=== PATIENT | female | born 1965 | race Caucasian/White ===

== ENCOUNTER → 2019-11-21 11:20 | Outpatient (BNVA) | payer MEDICAID, SELFPAY | PROVIDERS: PCP Internal Medicine Geriatric Medicine; Referring Provider Internal Medicine Geriatric Medicine; Visit Provider Nurse Practitioner Gerontology | DX: E10.40 Type 1 diabetes mellitus with diabetic neuropathy, unspecified (principal); E10.319 Type 1 diabetes mellitus with unspecified diabetic retinopathy without macular edema; E10.29 Type 1 diabetes mellitus with other diabetic kidney complication; E10.65 Type 1 diabetes mellitus with hyperglycemia; R80.9 Proteinuria, unspecified; E78.5 Hyperlipidemia, unspecified; G80.9 Cerebral palsy, unspecified; Z46.81 Encounter for fitting and adjustment of insulin pump; Z79.4 Long term (current) use of insulin | CPT/HCPCS: 99214 ==

== ENCOUNTER → 2020-02-27 09:05 | Outpatient (BNVA) | payer MEDICAID, SELFPAY | PROVIDERS: PCP Internal Medicine Geriatric Medicine; Visit Provider Nurse Practitioner Gerontology ==

== ENCOUNTER → 2020-03-04 10:41 | Outpatient (BNVA) | payer MEDICAID, SELFPAY | PROVIDERS: PCP Internal Medicine Geriatric Medicine; Visit Provider Nurse Practitioner Gerontology | DX: E10.29 Type 1 diabetes mellitus with other diabetic kidney complication (principal); E78.5 Hyperlipidemia, unspecified; R80.9 Proteinuria, unspecified | CPT/HCPCS: 82947; 99212 ==

== ENCOUNTER → 2020-04-19 11:13 | Outpatient (BNVA) | payer MEDICAID, SELFPAY | PROVIDERS: PCP Internal Medicine Geriatric Medicine; Visit Provider Nurse Practitioner Gerontology | DX: E10.29 Type 1 diabetes mellitus with other diabetic kidney complication (principal); R80.9 Proteinuria, unspecified; E78.5 Hyperlipidemia, unspecified; Z79.4 Long term (current) use of insulin; Z71.3 Dietary counseling and surveillance | CPT/HCPCS: 82947; 99212 ==

== ENCOUNTER → 2020-06-03 12:42 | Outpatient (BNVA) | payer MEDICAID, SELFPAY | PROVIDERS: PCP Internal Medicine Geriatric Medicine; Visit Provider Nurse Practitioner Gerontology ==

== ENCOUNTER 2020-06-07 09:43 | Outpatient (REF) | payer MEDICAID, SELFPAY ==
--- NOTE | ~2020-06-07 | MM_ITS ---
EXAMINATION: MM SCREENING DIGITAL BREAST TOMOSYNTHESIS, BILATERAL CLINICAL INFORMATION: Screening. Asymptomatic. Family history breast cancer, 2 sisters. The lifetime risk of breast cancer based on the Tyrer-Cuzick Model is 19.5%. COMPARISON: Mammography: 08/06/2018, 07/17/2017, 05/16/2016 TECHNIQUE: Digital breast tomosynthesis is performed in both the craniocaudal and mediolateral oblique views along with computer-aided detection (CAD). Synthesized 2D images are generated from the tomosynthesis. FINDINGS: There are scattered areas of fibroglandular density (ACR BI-RADS breast composition Category b). The parenchymal pattern is similar to prior exams. There is no developing density or interval mass or architectural abnormality. The breasts again show scattered punctate and some vascular and ductal secretory calcifications. The bilateral axilla and skin contours are unremarkable. Right breast has new group of 5 punctate calcifications mid 11:00 position. MM/MM tomosynthesis screening BI IMPRESSION: 1. Right: New group of 5 punctate calcifications mid 11:00 position. 2. Left: No mammographic evidence of malignancy. ASSESSMENT: BI-RADS 0: Incomplete - Need Additional Imaging Evaluation RECOMMENDATION: 1. Additional views of the right breast (magnification CC, magnification ML). 2. Radiology department staff will contact the patient for additional imaging. This patient's information was entered into a reminder system with a target due date for their next mammogram.
== END 2020-06-07 09:44 | disposition home or self-care (01) ==
LOC: HO.MAMMO 09:43
PROVIDERS: PCP Internal Medicine Geriatric Medicine; Visit Provider Internal Medicine Geriatric Medicine
DX: Z12.31 Encounter for screening mammogram for malignant neoplasm of breast (principal)
CPT/HCPCS: 77063; 77067

== ENCOUNTER 2020-06-20 12:42 | Outpatient (REF) | payer MEDICAID, SELFPAY ==
--- NOTE | ~2020-06-20 | MM_ITS ---
EXAMINATION: MM DIAGNOSTIC DIGITAL MAMMOGRAPHY, RIGHT CLINICAL INFORMATION: Recall from screening for new group of fine punctate calcifications mid 11:00 position. Family history breast cancer, 2 sisters. TC score 19.5%. COMPARISON: Mammography: 06/07/2020, 08/06/2018 TECHNIQUE: Digital mammography is performed in the following views: Magnification CC, magnification ML, magnification rolled CC x2. FINDINGS: There are scattered areas of fibroglandular density (ACR BI-RADS breast composition Category b). The magnification views show group of 5 calcifications in circular loosely arranged on the CC views. Only 3 calcifications are visible on the ML projection. Management plan is for short interval follow-up right mammography to include magnification views in 6 months. Results are discussed with the patient at time of visit. MM/MM added views RT IMPRESSION: Group of 3-5 calcifications circularly arranged on CC view, mid 11:00 right breast. ASSESSMENT: BI-RADS 3: Probably Benign RECOMMENDATION: Diagnostic right mammography in 6 months. This patient's information was entered into a reminder system with a target due date for their next mammogram.
--- NOTE | ~2020-06-20 | XR_ITS ---
EXAMINATION: XR FOOT, LEFT CLINICAL INFORMATION: Left foot pain COMPARISON: None TECHNIQUE: AP, lateral, and oblique views of the left foot. FINDINGS: The bones and soft tissues are normal. No fracture. Alignment is anatomic. Joint spaces are maintained. XR/XR foot LT min 3V IMPRESSION: Normal left foot.
== END 2020-06-20 12:43 | disposition home or self-care (01) ==
LOC: HO.MAMMO 12:42
PROVIDERS: Absent Provider Emergency Medicine; PCP Internal Medicine Geriatric Medicine; Visit Provider Internal Medicine Geriatric Medicine
DX: M79.672 Pain in left foot (principal); R92.1 Mammographic calcification found on diagnostic imaging of breast
CPT/HCPCS: 73630; 77065

== ENCOUNTER 2020-07-01 00:07 | Emergency (ER) | payer MEDICAID, SELFPAY ==
--- NOTE | ~2020-07-01 | XR_ITS ---
EXAMINATION: XR FINGER, LEFT CLINICAL INFORMATION: Fifth digit injury COMPARISON: None TECHNIQUE: 3 views of the left fifth digit. FINDINGS: Osseous alignment is anatomic. No acute fracture is seen. No significant focal soft tissue abnormality identified. XR/XR finger LT min 2V IMPRESSION: No acute findings identified.
[2020-07-01 02:00] VITALS: BP 133/78; PULSE 80; RESP 18; TEMP 36.6; O2SAT 97; BMI 35.4
--- NOTE | 2020-07-01 03:37 | ED.WOUNDLAC ---
HPI - Wound/Laceration General Chief Complaint: Wound/Laceration Stated Complaint: Finger Injury Time Seen by Provider: 07/01/20 01:41 Source: patient and family (Daughter) Mode of arrival: ambulatory History of Present Illness HPI narrative: 54-year-old female presents after granddaughter accidentally slammed the door on her left pinky finger. Patient endorses that she is a diabetic. Related Data Home Medications Medication Instructions Recorded Confirmed blood sugar diagnostic #10 ea 11/21/19 06/03/20 bupropion HCl 200 mg tablet,12 hr 200 mg PO BID 11/21/19 06/03/20 sustained-release lancets 28 gauge #100 ea 11/21/19 06/03/20 pen needle, diabetic 32 gauge x #50 ea 11/21/19 06/03/20 prazosin 2 mg capsule 2 mg PO BEDTIME 11/21/19 06/03/20 quetiapine 150 mg tablet,extended 150 mg PO DAILY 11/21/19 06/03/20 release 24 hr sertraline 100 mg tablet 100 mg PO DAILY 11/21/19 06/03/20 Previous Rx's Medication Instructions Recorded atorvastatin 80 mg tablet 80 mg PO DAILY 30 Days #30 tab 04/19/20 insulin aspart U-100 100 unit/mL 75 unit SUBCUT DAILY #20 ml 04/19/20 subcutaneous solution lisinopril 2.5 mg tablet 2.5 mg PO DAILY #30 tab 04/19/20 insulin syringe-needle U-100 0.5 #150 ea 06/03/20 mL 31 gauge x 06/23 Allergies Allergy/AdvReac Type Severity Reaction Status Date / Time No Known Allergies Allergy Verified 06/03/20 13:12 [No Known Allergies*] Review of Systems Review of Systems: Pertinent positives and negatives as stated in HPI and 10 point review of systems is otherwise negative. [facility] Past Medical History Source: nursing notes reviewed Medical History Cerebral palsy Depression Hyperlipidemia, unspecified Insomnia Proteinuria Type 1 diabetes mellitus with other diabetic kidney complication Surgical History History of appendectomy Hx of section Family History Family History Father Lung cancer Mother Colon cancer Diabetes HTN (hypertension) CVD (cardiovascular disease) Social History Social History Household Members: Family and Children Household Members Other:: grandchidren Alcohol intake: never Smoking Status: Never smoker Advance Directives: No Advance Directives Information Provided: No Patient : No Physical Exam Vital Signs: Vital Signs: Last Vital Signs Temp 98 F 07/01/20 06:00 Pulse 74 07/01/20 06:00 Resp 18 07/01/20 06:00 BP 118/60 07/01/20 06:00 Pulse Ox 98 07/01/20 06:00 Body Mass Index 35.4 VITAL SIGNS: Reviewed. GENERAL: Well developed, well nourished, in no acute distress. HEAD: Normocephalic/atraumatic EYES: PERRLA, EOMI LUNGS: Normal breath sounds. No adventitious sounds or accessory muscle use. SpO2<98> CARDIOVASCULAR: Regular rate and rhythm without noted murmurs ABDOMEN: Soft, non-tender, non-distended with bowel sounds. LEFT 5TH DIGIT: With crushed finger tip that contains a cracked acrylic nail. Course Course Course Narrative: This is a 54-year-old female with history and clinical presentation consistent with crush injury to the left 5th finger tip and review of x-rays negative for evidence of fracture. The leading edge of the your nail with the acrylic nail was removed after anesthetizing the digit without observed complication. Patient was then discharged home in stable condition. Procedures Procedure Narrative Procedure Narrative: Digital block was placed with 2% lidocaine at the base of the 5th digit in a ring fashion with good anesthetic affect. With a combination of scissors and hemostats the fake nail and remaining underlying nail of the leading edge was successfully removed with good hemostasis. Iodoform gauze was placed over the bed along with Telfa with coverage provided by [employer]. There were no observed complications. Discharge Plan Discharge Clinical Impression: Injury of nail Patient Disposition: Home, Self-Care Instructions: Nail Avulsion (ED) Additional Instructions: 1. Lynnette un seguimiento con olmedo proveedor de atenci?n primaria llamando al consultorio hoy y estableciendo ramesh hemant de reevaluaci?n. 2. Reanude todos los medicamentos caseros seg?n lo prescrito. 3. Recomiende el uso de Tylenol / ibuprofeno de venta jacob seg?n sea necesario para controlar el dolor. Tambi?n deber? mantener el dedo elevado para evitar que aumente el dolor. Regrese a la delfino de emergencias por cualquier empeoramiento janay de los s?ntomas. Prescriptions: No Action (DME) lancets [FreeStyle Lancets] 28 gauge misc See Rx Instructions .ROUTE .MEDSUPPLY Qty: 100 RF: 0 (DME) FreeStyle Lite Strips Strip See Rx Instructions .ROUTE .MEDSUPPLY Qty: 10 RF: 0 (DME) pen needle, diabetic [BD Ultra-Fine Marisa Pen Needle] 32 gauge x 5/32 needle See Rx Instructions .ROUTE .MEDSUPPLY Qty: 50 RF: 0 bupropion HCl [Wellbutrin SR] 200 mg tablet sustained-release 12 hr 200 mg PO BID RF: 0 sertraline 100 mg tablet 100 mg PO DAILY RF: 0 quetiapine 150 mg tablet extended release 24 hr 150 mg PO DAILY RF: 0 prazosin 2 mg capsule 2 mg PO BEDTIME RF: 0 (DME) insulin syringe-needle U-100 [BD Insulin Syringe Ultra-Fine] 0.5 mL 31 gauge x 5/16 syringe See Rx Instructions .ROUTE .MEDSUPPLY Qty: 150 RF: 1 atorvastatin 80 mg tablet 80 mg PO DAILY 30 Days Qty: 30 RF: 6 insulin aspart U-100 [Novolog U-100 Insulin aspart] 100 unit/mL solution 75 unit subcut DAILY Qty: 20 RF: 2 lisinopril 2.5 mg tablet 2.5 mg PO DAILY Qty: 30 RF: 3 Referrals: Sam Gleason MD [Primary Care Provider] - 2 days (Please re-evaluate patient's left 5th digit after leading edge of nail had to be removed secondary to crush injury in a door.) Interventions: ED Discharge Assessment Last Done: 07/01/20 07:04 Discharge Date/Time: 07/01/20 07:05 Print Language: Croatian
[2020-07-01] MEDS: Ibuprofen 400 MG TABLET PO (04:40)
[2020-07-01] MEDS: Acetaminophen 325 MG TABLET 975 MG PO (04:40)
[2020-07-01] MEDS: Lidocaine HCl 2 % MPF 5 ML VIAL SUBCUT (05:45)
[2020-07-01 06:00] VITALS: BP 118/60; PULSE 74; RESP 18; TEMP 36.6; O2SAT 98
--- NOTE | 2020-07-01 06:48 | PC.NURSE ---
Xeroform dressing applied. Nail removed by & cleaned with normal saline. Xeroform secured and wrapped gauze. Preparing for discharge home.
== END 2020-07-01 07:05 | disposition home or self-care (01) ==
PROVIDERS: Emergency Provider Student in an Organized Health Care Education/Training Program; PCP Internal Medicine Geriatric Medicine
DX: S67.197A Crushing injury of left little finger, initial encounter (principal); W23.1XXA Caught, crushed, jammed, or pinched between stationary objects, initial encounter; Y93.89 Activity, other specified; Y92.810 Car as the place of occurrence of the external cause; Y99.9 Unspecified external cause status
CPT/HCPCS: 11730; 73140; 99284

== ENCOUNTER → 2020-07-19 10:06 | Outpatient (BNVA) | payer MEDICAID, SELFPAY | PROVIDERS: PCP Internal Medicine Geriatric Medicine; Visit Provider Nurse Practitioner Gerontology ==

== ENCOUNTER → 2020-10-18 09:24 | Outpatient (BNVA) | payer MEDICAID, SELFPAY | PROVIDERS: PCP Internal Medicine Geriatric Medicine; Visit Provider Nurse Practitioner Gerontology | DX: E10.29 Type 1 diabetes mellitus with other diabetic kidney complication (principal); R80.9 Proteinuria, unspecified; E78.00 Pure hypercholesterolemia, unspecified; Z96.41 Presence of insulin pump (external) (internal); Z79.4 Long term (current) use of insulin | CPT/HCPCS: 82947; 83036; 99212 ==

== ENCOUNTER 2020-12-23 12:13 | Outpatient (REF) | payer MEDICAID, SELFPAY ==
--- NOTE | ~2020-12-23 | MM_ITS ---
EXAMINATION: MM DIAGNOSTIC DIGITAL BREAST TOMOSYNTHESIS, RIGHT CLINICAL INFORMATION: Short interval six-month follow-up probable benign calcifications mid 11:00 position. Family history breast cancer sister and half sister. TC score 18.0%. COMPARISON: Mammography: 06/20/2020, 06/07/2020 (BI-RADS 0), 08/06/2018 TECHNIQUE: Digital breast tomosynthesis is performed in both the craniocaudal and mediolateral oblique views along with computer-aided detection (CAD). Synthesized 2D images are generated from the tomosynthesis. Additional magnification right CC and magnification right ML views are obtained. FINDINGS: There are scattered areas of fibroglandular density (ACR BI-RADS breast composition Category b). Parenchymal pattern is similar to prior exams. There is no interval mass or architectural abnormality or developing density. The punctate tightly grouped round calcifications for follow-up are stable from prior diagnostic exam. They will be reassessed again at next bilateral annual mammography, due in 6 months. Results are provided to the patient at time of visit by the technologist. MM/MM tomosynthesis diagnostic RT IMPRESSION: Punctate tightly grouped round calcifications for follow-up 11:00 position mid depth there are stable from prior diagnostic exam. ASSESSMENT: BI-RADS 3: Probably Benign RECOMMENDATION: Diagnostic mammography at time of annual bilateral mammography, due in 6 months. This patient's information was entered into a reminder system with a target due date for their next mammogram.
== END 2020-12-23 12:14 | disposition home or self-care (01) ==
LOC: HO.MAMMO 12:13
PROVIDERS: Visit Provider Internal Medicine Geriatric Medicine
DX: R92.1 Mammographic calcification found on diagnostic imaging of breast (principal)
CPT/HCPCS: 77061; 77065

== ENCOUNTER → 2021-05-14 10:42 | Outpatient (BNVA) | payer MEDICAID, SELFPAY | PROVIDERS: PCP Internal Medicine Geriatric Medicine; Visit Provider Nurse Practitioner Gerontology | DX: E10.29 Type 1 diabetes mellitus with other diabetic kidney complication (principal); R80.9 Proteinuria, unspecified; E78.00 Pure hypercholesterolemia, unspecified | CPT/HCPCS: 82947; 99212 ==

== ENCOUNTER → 2021-06-20 13:00 | Outpatient (BNVA) | payer MEDICAID, SELFPAY | PROVIDERS: PCP Internal Medicine Geriatric Medicine; Visit Provider Registered Nurse Diabetes Educator | DX: E10.29 Type 1 diabetes mellitus with other diabetic kidney complication (principal); Z79.4 Long term (current) use of insulin; Z96.41 Presence of insulin pump (external) (internal) | CPT/HCPCS: 99211 ==

== ENCOUNTER 2021-06-23 12:19 | Outpatient (REF) | payer MEDICAID, SELFPAY ==
--- NOTE | ~2021-06-23 | MM_ITS ---
EXAMINATION: MM DIAGNOSTIC DIGITAL BREAST TOMOSYNTHESIS, BILATERAL CLINICAL INFORMATION: Due for yearly. Also follow-up probable benign tightly grouped calcifications mid 11:00 right breast. Family history breast cancer sister, and half sister. TC score 18%. COMPARISON: Mammography: 12/23/2020, 12/21/2020, 06/07/2020 (BI-RADS 0), 08/06/2018 TECHNIQUE: Digital breast tomosynthesis is performed in both the craniocaudal and mediolateral oblique views along with computer-aided detection (CAD). Synthesized 2D images are generated from the tomosynthesis. Additional magnification right CC and magnification right ML views are obtained. FINDINGS: There are scattered areas of fibroglandular density (ACR BI-RADS breast composition Category b). Parenchymal pattern is similar to prior studies. There is no developing density or interval mass or architectural abnormality. There are scattered bilateral benign vascular and some ductal secretory calcifications again seen. The axilla and skin contours are unremarkable. Calcifications for follow-up mid 11:00 right breast are stable. There are no increasing calcifications or interval pleomorphic types. Right calcifications will be reassessed again at time of annual bilateral mammography, due in one year. Results are provided to the patient at time of visit by the technologist. MM/MM tomosynthesis diagnostic BI IMPRESSION: -No mammographic evidence of malignancy. -Right breast calcifications for follow-up are stable from prior diagnostic exam. ASSESSMENT: BI-RADS 3: Probably Benign RECOMMENDATION: Diagnostic mammography at time of next annual exam, due in 12 months. This patient's information was entered into a reminder system with a target due date for their next mammogram.
== END 2021-06-23 12:20 | disposition home or self-care (01) ==
LOC: HO.MAMMO 12:19
PROVIDERS: PCP Internal Medicine Geriatric Medicine; Visit Provider Internal Medicine Geriatric Medicine
DX: R92.1 Mammographic calcification found on diagnostic imaging of breast (principal)
CPT/HCPCS: 77062; 77066

== ENCOUNTER → 2021-09-04 10:56 | Outpatient (BNVA) | payer MEDICAID, SELFPAY | PROVIDERS: PCP Internal Medicine Geriatric Medicine; Referring Provider Internal Medicine Geriatric Medicine; Visit Provider Nurse Practitioner | DX: Z01.818 Encounter for other preprocedural examination (principal); D12.6 Benign neoplasm of colon, unspecified | CPT/HCPCS: 99202; 99212 ==

== ENCOUNTER → 2021-12-30 10:50 | Outpatient (BNVA) | payer MEDICAID, SELFPAY | PROVIDERS: PCP Internal Medicine Geriatric Medicine; Visit Provider Internal Medicine Endocrinology, Diabetes & Metabolism | DX: Z46.81 Encounter for fitting and adjustment of insulin pump (principal); E10.29 Type 1 diabetes mellitus with other diabetic kidney complication | CPT/HCPCS: 82947; 83036; 99212 ==

== ENCOUNTER 2022-02-13 08:21 | Outpatient (REF) | payer MEDICAID, SELFPAY ==
[2022-02-13 08:32] LABS: MANUAL DIFF FLAG NO
[2022-02-13 09:33] LABS: Basophils Percent Auto 0.5 % (0-2); Eosinophils Absolute Auto 0.3 X10*3/uL (0.0-0.4); Eosinophils Percent Auto 3.5 % (0-4); Hematocrit 43.3 % (37.0-47.0); Hemoglobin 14.4 g/dl (12.0-16.0); Imm Gran Abs Auto 0.02 X10*3/uL (0.00-0.03); Imm Gran Pct Auto 0.3 % (0.0-0.4); Lymphocytes Absolute Auto 2.7 X10*3/uL (1.2-4.9); Lymphocytes Percent Auto 34.8 % (20-40); Mean Corpuscular HGB Conc 33.3 g/dl (31.0-35.0); Mean Corpuscular Hemoglobin 29.6 pg (27.0-33.0); Mean Corpuscular Volume 89.1 fL (80.0-98.0); Mean Platelet Volume 10.3 fL (9.4-12.3); Monocytes Absolute Auto 0.5 X10*3/uL (0.1-1.2); Monocytes Percent Auto 6.3 % (2-11); Neutrophils Absolute Auto 4.2 x10*3/uL (2.0-8.3); Neutrophils Percent Auto 54.6 % (45-73); Platelet Count 250 X10*3/uL (160-400); Red Blood Count 4.86 X10*6/uL (4.20-5.50); Red Cell Distribution Width 11.8 % (11.0-16.0); White Blood Count 7.7 X10*3/uL (4.8-10.8)
[2022-02-13 09:50] LABS: Creatinine Urine 140.62 mg/dL
[2022-02-13 10:00] LABS: Alanine Aminotransferase 14 U/L (0-31); Albumin Level 3.9 g/dL (3.5-5.0); Alkaline Phosphatase 97 U/L (39-117); Anion Gap 12 (12-20); Aspartate Amino Transferase 18 U/L (5-31); Bilirubin Total 0.8 mg/dL (0.0-1.0); Blood Urea Nitrogen 12 mg/dL (9-16); Calcium 9.8 mg/dL (8.4-10.2); Carbon Dioxide 26 mmol/L (22-29); Chloride 106 mmol/L (96-108); Cholesterol 159 mg/dL; Estimated Glomerular Filt Rate > 60; Glucose Random 105 mg/dL (60-115); HDL Cholesterol 49 mg/dL; LDL Cholesterol Calculated 94 mg/dl; Potassium 4.1 mmol/L (3.3-5.1); Sodium 140 mmol/L (135-145); Total Protein 7.6 g/dL (6.5-8.0); Triglycerides 80 mg/dL
[2022-02-13 10:10] LABS: Thyroid Stimulating Hormone 1.94 uIU/mL (0.32-4.0)
[2022-02-13 11:38] LABS: Free T4 (Free Thyroxine) 0.92 ng/dL (0.71-1.85)
[2022-02-14 18:22] LABS: LDL Cholesterol Direct 88 mg/dL (<100)
== END 2022-02-13 08:22 | disposition home or self-care (01) ==
LOC: HO.LAB 08:21
PROVIDERS: Nurse Practitioner; Nurse Practitioner Gerontology; PCP Internal Medicine Geriatric Medicine; Visit Provider Internal Medicine Endocrinology, Diabetes & Metabolism
DX: D12.6 Benign neoplasm of colon, unspecified (principal); E10.29 Type 1 diabetes mellitus with other diabetic kidney complication
CPT/HCPCS: 36415; 80053; 80061; 82043; 83721; 84439; 84443; 85025

== ENCOUNTER 2022-02-20 07:29 | Day surgery (SDC) | payer MEDICAID, SELFPAY ==
[2022-02-17 15:32] VITALS: BMI 35.4
--- NOTE | 2022-02-19 12:42 | HO.ANESPROP2 ---
Documented by User: Eun Cisneros NP 02/19/22 12:43 HPI - Anesthesia Eval Consult details Narrative: 56yo F for Colonoscopy PMFSH Active Problems Active Problems: All Active Problems (Updated 09/04/21 @ 16:14 by CEDRIC Blake) Uterine leiomyoma (Acute) Tubular adenoma of colon (Acute) Preop examination (Acute) Type 1 diabetes mellitus with other diabetic kidney complication (Acute) Proteinuria (Acute) Hyperlipidemia, unspecified (Acute) Past Medical History Medical History Kinsey's palsy Cerebral palsy Depression Hyperlipidemia, unspecified Hypertension Insomnia Proteinuria Type 1 diabetes mellitus with other diabetic kidney complication Family History Family History Father Lung cancer Mother Colon cancer Diabetes HTN (hypertension) CVD (cardiovascular disease) Surgical History Surgical History H/O colonoscopy History of appendectomy Hx of section Social History Social History Household Members: Family and Children Household Members Other:: grandchidren Alcohol intake: never Patient Tobacco Use Status: Never used Tobacco Are you DNR?: No Advance Directives: No Advance Directives Information Provided: Yes Nutrition Risks: No Nutritional Risk Meds Allergies Allergy/AdvReac Type Severity Reaction Status Date / Time No Known Allergies Allergy Verified 02/20/22 07:21 [No Known Allergies*] Home Medications Medication Instructions Recorded Confirmed Last Taken Type blood sugar diagnostic (FreeStyle #10 ea 11/21/19 05/14/21 Unknown History Lite Strips) bupropion HCl 200 mg tablet,12 hr 200 mg PO BID 11/21/19 02/17/22 Unknown History sustained-release (Wellbutrin SR) lancets 28 gauge (FreeStyle #100 ea 11/21/19 05/14/21 Unknown History Lancets) prazosin 2 mg capsule 2 mg PO BEDTIME 11/21/19 02/17/22 Unknown History quetiapine 150 mg tablet,extended 150 mg PO DAILY 11/21/19 02/17/22 Unknown History release 24 hr sertraline 100 mg tablet 100 mg PO DAILY 11/21/19 02/17/22 Unknown History clonazepam 0.5 mg tablet 0.5 mg PO BID PRN Panic Attack(S) 09/04/21 02/17/22 Unknown History lisinopril 2.5 mg tablet 2.5 mg PO DAILY 12/30/21 02/17/22 Unknown History prazosin 1 mg capsule 1 mg PO BEDTIME 12/30/21 02/17/22 Unknown History Novolog Mix 70-30 U-100 Insuln 65 units subcut (via wearable 02/17/22 02/17/22 Unknown History injectr) DAILY Exam Exam Date and Time: February 19, 2022 1242 Height,Weight and Vital Signs: Height 5 ft 3 in Weight 90.718 kg Pertinent Lab Results Pertinent Lab Results: Laboratory Tests 02/13/22 02/13/22 08:30 08:30 WBC 7.7 Hgb 14.4 Hct 43.3 Plt Count 250 Sodium 140 Potassium 4.1 Chloride 106 Carbon Dioxide 26 BUN 12 Creatinine 0.78 Assessment and Plan Assessment Anesthesia Assessment: Chart Reviewed Documented by User: Kb Carlson MD 02/20/22 08:11 [facility] Past Medical History Medical History Kinsey's palsy Cerebral palsy Depression Hyperlipidemia, unspecified Hypertension Insomnia Proteinuria Type 1 diabetes mellitus with other diabetic kidney complication Functional capacity: independent ambulation Family History Family History Father Lung cancer Mother Colon cancer Diabetes HTN (hypertension) CVD (cardiovascular disease) Family history of problems with anesthesia: No Surgical History Surgical History H/O colonoscopy History of appendectomy Hx of section History of Problems with Anesthesia: No Social History Social History Household Members: Family and Children Household Members Other:: grandchidren Alcohol intake: never Patient Tobacco Use Status: Never used Tobacco Are you DNR?: No Advance Directives: No Advance Directives Information Provided: Yes Nutrition Risks: No Nutritional Risk Meds Allergies Allergy/AdvReac Type Severity Reaction Status Date / Time No Known Allergies Allergy Verified 02/20/22 07:21 [No Known Allergies*] Home Medications Medication Instructions Recorded Confirmed Last Taken Type blood sugar diagnostic (FreeStyle #10 ea 11/21/19 05/14/21 Unknown History Lite Strips) bupropion HCl 200 mg tablet,12 hr 200 mg PO BID 11/21/19 02/17/22 Unknown History sustained-release (Wellbutrin SR) lancets 28 gauge (FreeStyle #100 ea 11/21/19 05/14/21 Unknown History Lancets) prazosin 2 mg capsule 2 mg PO BEDTIME 11/21/19 02/17/22 Unknown History quetiapine 150 mg tablet,extended 150 mg PO DAILY 11/21/19 02/17/22 Unknown History release 24 hr sertraline 100 mg tablet 100 mg PO DAILY 11/21/19 02/17/22 Unknown History clonazepam 0.5 mg tablet 0.5 mg PO BID PRN Panic Attack(S) 09/04/21 02/17/22 Unknown History lisinopril 2.5 mg tablet 2.5 mg PO DAILY 12/30/21 02/17/22 Unknown History prazosin 1 mg capsule 1 mg PO BEDTIME 12/30/21 02/17/22 Unknown History Novolog Mix 70-30 U-100 Insuln 65 units subcut (via wearable 02/17/22 02/17/22 Unknown History injectr) DAILY Exam Airway Mallampati Class: II TM Dist: >3cm Neck ROM: Limited Heart: rrr Lungs: cta Assessment and Plan Final Anesthetic Review Family History of Problems with Anesthesia: No History of Problems with Anesthesia: No NPO: Yes ASA Class: IV Final Preanesthetic Review: No Changes in Pt Med Stat, Meds/Allgs Chart Reviewed, Consent Obtained/Reviewed and Anes Risks/Benef Reviewed Patient Risk: Intermediate Procedure Risk: Low Anesthetic Plan Anesthetic Plan: MAC: and Agree w/ Assess. and Plan Disposition: Standard PACU
[2022-02-20 08:00] VITALS: BP 162/74; PULSE 102; RESP 18; TEMP 36.6; O2SAT 97
--- NOTE | 2022-02-20 08:02 | MHC.SHP ---
Pre-Procedural Eval Section A Date of Service: 02/20/22 The patient is an INPATIENT: No The History & Physical has been completed within 30 days and I have reviewed it.: No Section B Chief Complaint: COLON CANCER SCREENING, HISTORY OF COLON POLYPS Relevant Family History (Specify if Yes): Yes Relevant Social History: None Present Medications: see Short Stay Collaborative assessment Medical History: Significant History (Kinsey's palsy Cerebral palsy Depression Hyperlipidemia, unspecified Hypertension Insomnia Proteinuria Type 1 diabetes mellitus with other diabetic kidney complication) History of Previous Operations: Relevant previous surgery/procedure and date(s) (H/O colonoscopy History of appendectomy Hx of section) Allergies: Allergies Allergy/AdvReac Type Severity Reaction Status Date / Time No Known Allergies Allergy Verified 02/20/22 07:21 [No Known Allergies*] Review of Systems Sugical H&P ROS: Negative: Constitution, Cardiovascular, Respiratory and Gastrointestinal Exam Surgical H&P Exam: Normal: Heart, Normal: Lungs, Normal: Extremities and Normal: Abdomen Plan Diagnosis/Plan: Unchanged I have reviewed the history and physical and performed a pertinent physical examination on my patient. No changes have occurred unless specified. Time Spent With Patient Time: Total time managing care of this patient today ____ minutes.
[2022-02-20 08:05] LABS: Glucose, Whole Blood 93 mg/dL (60-115)
[2022-02-20] MEDS: Lactated Ringers 1,000 ML 100 ML IVCONT (08:08)
--- NOTE | 2022-02-20 08:11 | PM.OP ---
Brief Operative Note Date of Service: 02/20/22 Pre-op diagnosis: COLON CANCER SCREENING, HISTORY OF COLON POLYPS Post-op diagnosis: other (COLON POLYPS, DIVERTICULOSIS, HEMORRHOIDS) Procedure: COLONOSCOPY TO CECUM WITH BIOPSY Surgeon: Risa Da Silva MD Anesthesia: MAC Was an De Icer Installer used for this Procedure?: Yes De Icer Installer: Claudio Garcia Estimated blood loss (mL): 0 Pathology: other (A- ASCENDING COLON POLYPS) Condition: stable Disposition: PACU
--- NOTE | 2022-02-20 08:12 | W.PM.OPN ---
Operative Note Operative Note Date of Service: 02/20/22 Narrative: Pre-op diagnosis: COLON CANCER SCREENING, HISTORY OF COLON POLYPS Post-op diagnosis:?other (COLON POLYPS, DIVERTICULOSIS, HEMORRHOIDS) Surgeon: Risa Da Silva MD Anesthesia:?MAC COLONOSCOPY TILL CECUM WITH BIOPSIES Consent: Indications for the procedure and potential complications of bleeding, perforation, reaction to medications and missed diagnosis were discussed with the patient and informed consent was obtained. Instrument: Olympus PCF H 190 L variable stiffness pediatric colonoscope Monitoring: Vital signs and clinical assessment, intermittent blood pressure monitoring, continuous EKG monitoring, Pulse oximetry and Carbon Dioxide monitoring were done throughout the procedure. Colon withdrawl time was 14 minutes. Procedure: The patient was placed in the left lateral decubitis position and pre-procedure medications were administered. After a digital rectal examination of the ano-rectum, the video colonoscope was inserted into the rectum and advanced through the colon to the cecum. The colonoscope was slowly withdrawn in a retrograde panoramic fashion and the colon mucosa was carefully examined including a retroflexed view of the rectum. Findings and interventions are described below. Procedure Difficulty: Without difficulty Findings: Terminal Ileum: Not evaluated Cecum: Normal Ascending Colon: Three 2-5 mm sessile polyps removed by a cold bx. Transverse Colon: Normal Descending Colon: Moderate diverticulosis Sigmoid Colon: Moderate diverticulosis Rectum: Normal Ano-rectum: Moderate internal hemorrhoids Colon preparation: Good Impression and Post Procedure Diagnosis: Colonoscopy Findings: Three small polyps removed Moderate diverticulosis seen in the left colon Moderate hemorrhoids on retroflexed exam. Plan: Await pathology results Patient has an appointment on 03/06/22 in the [facility] with Mary Lou Rose NP. Repeat Colonoscopy interval based on path results - in 3-5 years if polyps are adenomatous and due to a hx of colon polyps Above findings were reviewed with the patient and colon polyps and diverticulosis handouts were given in the discharge area
[2022-02-20 08:48] VITALS: BP 105/50; PULSE 86; RESP 16; TEMP 36.5; O2SAT 97
[2022-02-20 09:03] VITALS: BP 121/56; PULSE 86; RESP 16; TEMP 36.4; O2SAT 97
[2022-02-20 09:17] VITALS: BP 128/61; PULSE 90; RESP 16; TEMP 36.4; O2SAT 97
== END 2022-02-20 09:45 | disposition home or self-care (01) ==
PROVIDERS: PCP Internal Medicine Geriatric Medicine; Visit Provider Internal Medicine Gastroenterology
PROC: 0DJD8ZZ Inspection of Lower Intestinal Tract, Via Natural or Artificial Opening Endoscopic (ICD-10-PCS; CPT 45378; principal; 2022-02-20 08:20)
DX: Z12.11 Encounter for screening for malignant neoplasm of colon (principal); Z86.010 Personal history of colon polyps; K63.5 Polyp of colon; K57.30 Diverticulosis of large intestine without perforation or abscess without bleeding; K64.8 Other hemorrhoids; G80.9 Cerebral palsy, unspecified; I10 Essential (primary) hypertension; E78.5 Hyperlipidemia, unspecified; E10.319 Type 1 diabetes mellitus with unspecified diabetic retinopathy without macular edema; E10.42 Type 1 diabetes mellitus with diabetic polyneuropathy; R80.9 Proteinuria, unspecified; G47.00 Insomnia, unspecified; Z79.4 Long term (current) use of insulin; Z79.899 Other long term (current) drug therapy
CPT/HCPCS: 45380; 82947; 88305

== ENCOUNTER → 2022-04-15 11:27 | Outpatient (BNVA) | payer MEDICAID, SELFPAY | PROVIDERS: PCP Internal Medicine Geriatric Medicine; Visit Provider Internal Medicine Endocrinology, Diabetes & Metabolism | DX: E10.29 Type 1 diabetes mellitus with other diabetic kidney complication (principal); Z96.41 Presence of insulin pump (external) (internal); Z79.4 Long term (current) use of insulin | CPT/HCPCS: 82947; 83036; 99212 ==

== ENCOUNTER → 2022-06-10 09:38 | Outpatient (BNVA) | payer MEDICAID, SELFPAY | PROVIDERS: PCP Internal Medicine Geriatric Medicine; Visit Provider Registered Nurse Diabetes Educator | DX: Z46.81 Encounter for fitting and adjustment of insulin pump (principal); E10.29 Type 1 diabetes mellitus with other diabetic kidney complication | CPT/HCPCS: 99211 ==

== ENCOUNTER 2022-06-23 12:46 | Outpatient (REF) | payer MEDICAID, SELFPAY ==
--- NOTE | ~2022-06-23 | MM_ITS ---
EXAMINATION: MM DIAGNOSTIC DIGITAL BREAST TOMOSYNTHESIS, BILATERAL CLINICAL INFORMATION: Due for yearly. Also follow-up probable benign tightly grouped calcifications mid 11:00 right breast. Family history breast cancer. TC score 15%. COMPARISON: Mammography: 06/23/2021, 12/23/2020, 06/20/2020, 06/07/2020 (BI-RADS 0): 08/06/2018 TECHNIQUE: Digital breast tomosynthesis is performed in both the craniocaudal and mediolateral oblique views along with computer-aided detection (CAD). Synthesized 2D images are generated from the tomosynthesis. Additional magnification right CC and magnification right ML views are obtained. FINDINGS: There are scattered areas of fibroglandular density (ACR BI-RADS breast composition Category b). There are no significant masses, abnormal calcifications, or other abnormalities. No architectural abnormality or developing density or significant change from prior studies. The axilla and skin contours are unremarkable. The right breast calcifications for follow-up mid 11:00 right breast are stable from prior diagnostic exams. They are circumferential arranged on the CC view. They are now considered to be benign. Results are provided to the patient at time of visit by the technologist. MM/MM tomosynthesis diagnostic BI IMPRESSION: -No mammographic evidence of malignancy. -Right breast calcifications for follow-up are stable from prior diagnostic exams and now considered to be benign. ASSESSMENT: BI-RADS 2: Benign RECOMMENDATION: Routine annual mammography screening. This patient's information was entered into a reminder system with a target due date for their next mammogram.
== END 2022-06-23 12:47 | disposition home or self-care (01) ==
LOC: HO.MAMMO 12:46
PROVIDERS: PCP Internal Medicine Geriatric Medicine; Visit Provider Internal Medicine Geriatric Medicine
DX: R92.1 Mammographic calcification found on diagnostic imaging of breast (principal)
CPT/HCPCS: 77062; 77066

== ENCOUNTER → 2022-07-15 11:30 | Outpatient (BNVA) | payer MEDICAID, SELFPAY | PROVIDERS: PCP Internal Medicine Geriatric Medicine; Visit Provider Internal Medicine Endocrinology, Diabetes & Metabolism | DX: E10.29 Type 1 diabetes mellitus with other diabetic kidney complication (principal); Z96.41 Presence of insulin pump (external) (internal) | CPT/HCPCS: 82947; 83036; 99212 ==

== ENCOUNTER 2022-10-21 12:47 | Outpatient (AMB) | payer MEDICAID, SELFPAY ==
--- NOTE | 2022-10-21 12:51 | A.OFFVIS_ITS ---
Intake Vital Signs 10/21/22 12:52 Height 5 ft 3 in Weight 203 lb 4.259 oz BMI 36.0 BP 150/84 H Blood Pressure Location Lt brachial Position Sitting Pulse 88 Pulse Source Pulse Oximeter Intake Visit Reasons: DM2 Intake Note: Patient present today to follow up on Type 2 Diabetes Mellitus. Patient receives DME supplies through: [facility] Last Diabetic Eye exam: 2021 Last Podiatry Visit: Does not see a Coding Analyst Random Glucose: 123mg/dl HgA1C: 6.8% Lotus Notes Administrator Required: Yes Lotus Notes Administrator Language: Citizen Participation Specialist Name: Alexandra funez Information Interpreted: non-clinical & clinical Accompanied by: Daughter Allergies No Known Allergies [No Known Allergies*] Allergy (Verified 10/21/22 12:57) Medication List - Last Reconciled 10/21/22 by Edgar Murrell MD atorvastatin 80 mg PO DAILY blood sugar diagnostic (FreeStyle Lite Strips) As directed blood-glucose meter (FreeStyle Lite Meter kit) As directed bupropion HCl (Wellbutrin SR) 200 mg PO BID clonazepam 0.5 mg PO BID PRN fluticasone propionate 50 mcg/actuation 0 mcg intranasal glucagon 3 mg/actuation (Baqsimi) 3 mg intranasal ONCE 30 days insulin aspart U-100 75 units (0.75 mL) subcut DAILY insulin glargine (Lantus Solostar U-100 Insulin) 30 units subcut QPM PRN insulin pump controller ([employer] DASH PDM Kit (Gen 4)) As directed insulin syr/ndl U100 half ravinder (BD Veo Insulin Syringe Ultra-Fine (half unit)) As directed four times a day insulin syringe-needle U-100 (BD Insulin Syringe Ultra-Fine) As directed five times a day lancets (FreeStyle Lancets) As directed lisinopril 2.5 mg PO DAILY pen needle, diabetic (BD Ultra-Fine Marisa Pen Needle) As directed once daily prazosin 2 mg PO BEDTIME quetiapine ER 150 mg PO DAILY sertraline 100 mg PO DAILY HPI HPI Comments History of Present Illness Details Patient is 56 yo female with DM type 1 diagnosed at age 27 who prese [facility] for visit for continued diabetes management. Past medical history includes depression, hyperlipidemia Micro and macrovascular complications include retinopathy with photocoagulation, neuropathy, Diabetes medications: Novolog via Omnipod Classic pump with Dexcom G6 68% basal 32% bolus, 56.9 units daily 1 18.1 of carbs per day. Basal rate(s) (units/hour) : 12 AM to 7 AM 1.8 units / hr 7 AM? to 12 PM? 1.55 units / hr 12 PM? to 6 PM? 1.7 units / hr 6 PM? to 8 PM? 1.9 units / hr 8 PM? to 12 AM? 1.8 units / hr Bolus setting Insulin Carbohydrate Ratio (s) 12 AM? to 12 PM? 1:8 12 PM to 12 AM? 1:7 Correction Factor / Sensitivity Factor 12 AM? to 12 PM? 1:30 12 PM? to 8 PM? 1:35 8 PM to 12 AM ? 1:32 Active Insulin Time:? 3 hours Target(s): 12 AM? to 12 AM? 100 Correction threshold: 12 AM? to 12 AM? 120 Continuous glucose monitor: Average blood glucose the last 2 weeks 132 GMI of 6.5 , C GM 100% active. Blood glucose very low less than 54, 3%. Glucose low less than 70 1% Glucose in target range of 70-180, 78 %. Glucose high over 180, 17%. Glucose very high over 250, 1%. Coefficient variation 60 Has f/u appt with CDE Symptoms reported: denies numbness, tingling in feet Hypoglycemia: infrequently once per wk Hyperglycemia: denies polyuria Exercise: limited due to foot fracture. Eye exam: last yr .Has appt 11/2022 Does not know how to self make changes in pump [facility] Medical History Kinsey's palsy Hypertension Cerebral palsy Depression Insomnia Proteinuria Type 1 diabetes mellitus with other diabetic kidney complication Hyperlipidemia, unspecified Surgical History H/O colonoscopy History of appendectomy Hx of section Family History Father Lung cancer Mother Colon cancer Diabetes HTN (hypertension) CVD (cardiovascular disease) Social History Household Members: Family and Children Household Members Other:: grandchidren Alcohol intake: never Patient Tobacco Use Status: Never used Tobacco Physical Exam Absence of Cushingoid features. Absence of acromegalic features. Neck exam reveals nl size thyroid about 15 gms. No thyroid nodules palpable. No carotid bruits present. Lungs CTA. Heart S1 S2, Reg R/R. No M/R/ G. Skin exam reveals absence of vitiligo or acanthosis nigricans. Abdominal exam reveals Soft NT/ND with NA BS. No organomegaly present. Extrem Other: Visual exam of foot performed. No ulcerations or open lesions. No onchomycosis, no callouses.Pulses 2 + distally. Sensation intact to monofilament exam. Vibratory sensation sensed 10 seconds is decreased in both lower extremities Results AMB Hemoglobin A1c AMB Hemoglobin A1c 6.8 % Last Edit by Monserrat Garrison on 10/21/22 13:10 Assessment & Plan Assessment & Plan (1) Type 1 diabetes mellitus with other diabetic kidney complication: Code(s): E10.29 - Type 1 diabetes mellitus with other diabetic kidney complication Plan: This is a 56-year-old female with a history of type 1 diabetes being managed with a Omnipod dash pump with Dexcom G6 with excellent glycemic control and known microvascular complications namely micro albuminuria, neuropathy and retinopathy. I did not make any changes to pump settings today. Will have patient follow up with childbirth educator Orders: Orders AMB Hemoglobin A1c Today E10.29 - Type 1 diabetes mellitus with other diabetic kidney complication Coding Level of Care Code Est Pt Level 4 (48057) Diagnoses Type 1 diabetes mellitus with other diabetic kidney complication E10.29
[2022-10-21 12:52] VITALS: BP 150/84; PULSE 88; BMI 36.0
[2022-10-21 13:05] LABS: Glucose, Whole Blood 123 mg/dL (60-115)
== END 2022-10-21 13:11 | disposition home or self-care (01) ==
PROVIDERS: PCP Internal Medicine Geriatric Medicine; Visit Provider Internal Medicine Endocrinology, Diabetes & Metabolism
DX: E10.29 Type 1 diabetes mellitus with other diabetic kidney complication (principal)
CPT/HCPCS: 99214

== ENCOUNTER → 2022-10-21 12:47 | Outpatient (BNVA) | payer MEDICAID, SELFPAY | PROVIDERS: PCP Internal Medicine Geriatric Medicine; Visit Provider Internal Medicine Endocrinology, Diabetes & Metabolism | DX: Z46.81 Encounter for fitting and adjustment of insulin pump (principal); E10.29 Type 1 diabetes mellitus with other diabetic kidney complication; Z79.4 Long term (current) use of insulin | CPT/HCPCS: 82947; 83036; 99212 ==

== ENCOUNTER 2022-10-23 17:00 | Outpatient (REF) | payer MEDICAID, SELFPAY ==
[2022-10-23 20:34] LABS: CT PCR NOT DETECTED (Not Detect.); NG PCR NOT DETECTED (Not Detect.)
[2022-10-28 07:28] LABS: HPV mRNA E6/E7 rflx Not Detected (Not Detected)
== END 2022-10-23 17:01 | disposition home or self-care (01) ==
LOC: HO.HHCLNP 17:00
PROVIDERS: Visit Provider Family Medicine
DX: Z01.419 Encounter for gynecological examination (general) (routine) without abnormal findings (principal); Z11.51 Encounter for screening for human papillomavirus (HPV)
CPT/HCPCS: 0353U; 87624; 88142

== ENCOUNTER 2023-02-17 10:43 | Outpatient (AMB) | payer MEDICAID, SELFPAY ==
[2023-02-17 10:47] VITALS: BP 142/80; PULSE 86; BMI 35.9
--- NOTE | 2023-02-17 10:47 | A.OFFVIS_ITS ---
Intake Vital Signs 02/17/23 10:47 Height 5 ft 3 in Weight 202 lb 9.677 oz BMI 35.9 BP 142/80 H Blood Pressure Location Lt brachial Position Sitting Pulse 86 Pulse Source Pulse Oximeter Intake Visit Reasons: DM-CONFIRMED Intake Note: Patient presents today to follow up on DMT1. Last Diabetic Eye exam: Over 1 year ago Last Podiatry Visit: None Random Glucose: 93 mg/dl HgA1C:8.5% Net Applications Developer Required: Yes Net Applications Developer Language: Laboratory Machinist Name: Kasandra medical staff Information Interpreted: non-clinical & clinical Accompanied by: Daughter Allergies No Known Allergies [No Known Allergies*] Allergy (Verified 02/17/23 10:54) Medication List - Last Reconciled 02/17/23 by Edgar Murrell MD atorvastatin 80 mg PO DAILY blood sugar diagnostic (FreeStyle Lite Strips) As directed blood-glucose meter (FreeStyle Lite Meter kit) As directed bupropion HCl (Wellbutrin SR) 200 mg PO BID clonazepam 0.5 mg PO BID PRN fluticasone propionate 50 mcg/actuation 0 mcg intranasal glucagon 3 mg/actuation (Baqsimi) 3 mg intranasal ONCE 30 days insulin aspart U-100 75 units (0.75 mL) subcut DAILY insulin pump controller (Omnipod DASH PDM Kit (Gen 4)) As directed insulin syr/ndl U100 half ravinder (BD Veo Insulin Syringe Ultra-Fine (half unit)) As directed four times a day insulin syringe-needle U-100 (BD Insulin Syringe Ultra-Fine) As directed five times a day lancets (FreeStyle Lancets) As directed Lantus Solostar U-100 Insulin (insulin glargine) 15 units (0.15 mL) subcut DAILY NS lisinopril 2.5 mg PO DAILY pen needle, diabetic (BD Ultra-Fine Marisa Pen Needle) As directed once daily prazosin 2 mg PO BEDTIME quetiapine ER 150 mg PO DAILY sertraline 100 mg PO DAILY HPI HPI Comments History of Present Illness Details Patient is 57 yo female with DM type 1 diagnosed at age 27 who presents for visit for continued diabetes management. Past medical history includes depression, hyperlipidemia Micro and macrovascular complications include retinopathy with photocoagulation, neuropathy, Diabetes medications: Novolog via Omnipod Classic pump with Dexcom G6. Disd not have Omnipod for 2 mos 57% basal 43% bolus, 60.2 units daily 1 56.5 of carbs per day. Basal rate(s) (units/hour) : 12 AM to 7 AM 1.8 units / hr 7 AM? to 12 PM? 1.55 units / hr 12 PM? to 6 PM? 1.7 units / hr 6 PM? to 8 PM? 1.9 units / hr 8 PM? to 12 AM? 1.8 units / hr Bolus setting Insulin Carbohydrate Ratio (s) 12 AM? to 12 PM? 1:8 12 PM to 12 AM? 1:7 Correction Factor / Sensitivity Factor 12 AM? to 12 PM? 1:30 12 PM? to 8 PM? 1:35 8 PM to 12 AM ? 1:32 Active Insulin Time:? 3 hours Target(s): 12 AM? to 12 AM? 100 Correction threshold: 12 AM? to 12 AM? 120 Continuous glucose monitor: Average blood glucose the last 2 weeks 156 GMI of 7 , C GM 93% active. Blood glucose very low less than 54, <1%. Glucose low less than 70 2% Glucose in target range of 70-180, 61 %. Glucose high over 180, 32%. Glucose very high over 250, 4%. Coefficient variation 60 Has f/u appt with CDE Symptoms reported: denies numbness, tingling in feet Hypoglycemia: infrequently once per wk Hyperglycemia: denies polyuria Exercise: limited due to foot fracture. Eye exam: last yr .Needs to make appt Does not know how to self make changes in pump PFSH Medical History (System 12/04/22 @ 14:58 by Nivia Kramer) Kinsey's palsy Hypertension Cerebral palsy Depression Insomnia Proteinuria Type 1 diabetes mellitus with other diabetic kidney complication Hyperlipidemia, unspecified Surgical History H/O colonoscopy Hx of section History of appendectomy Family History Father Lung cancer Mother Colon cancer Diabetes HTN (hypertension) CVD (cardiovascular disease) Social History (System 12/04/22 @ 14:58 by Nivia Kramer) Household Members: Family and Children Household Members Other:: grandchidren Alcohol intake: never Patient Tobacco Use Status: Never used Tobacco Physical Exam Absence of Cushingoid features. Absence of acromegalic features. Neck exam reveals nl size thyroid about 15 gms. No thyroid nodules palpable. No carotid b ruits present. Lungs CTA. Heart S1 S2, Reg R/R. No M/R/ G. Skin exam reveals absence of vitiligo or acanthosis nigricans. Abdominal exam reveals Soft NT/ND with NA BS. No organomegaly present. Extrem Other: Visual exam of foot performed. No ulcerations or open lesions. No onchomycosis, no callouses.Pulses 2 + distally. Sensation intact to monofilament exam. Vibratory sensation sensed 10 seconds is decreased in both lower extremities Results AMB Hemoglobin A1c AMB Hemoglobin A1c 8.5 % Last Edit by Monserrat Garrison on 02/17/23 11:06 Assessment & Plan Assessment & Plan (1) Type 1 diabetes mellitus with other diabetic kidney complication: Code(s): E10.29 - Type 1 diabetes mellitus with other diabetic kidney complication Plan: This is a 56-year-old female with a history of type 1 diabetes being managed with a Omnipod dash pump with Dexcom G6 with somewhat deteriorated three-month overall glycemic control but improved over last 3 months due to not using pump and known microvascular complications namely micro albuminuria, neuropathy and retinopathy. I did not make any changes to pump settings today. Will have patient follow up with family life educator. Depending upon what sensor shows during educator follow-up may need adjustment to pump setting . Will check lipid profile and microalbumin/creatinine Orders: Orders AMB Hemoglobin A1c Today E10.29 - Type 1 diabetes mellitus with other diabetic kidney complication Lipid Panel Today E10.29 - Type 1 diabetes mellitus with other diabetic kidney complication Microalbumin, Random (w Creat) Today E10.29 - Type 1 diabetes mellitus with other diabetic kidney complication Coding Level of Care Code Est Pt Level 4 (74202) Diagnoses Type 1 diabetes mellitus with other diabetic kidney complication E10.29
[2023-02-17 11:00] LABS: Glucose, Whole Blood 93 mg/dL (60-115)
== END 2023-02-17 11:15 | disposition home or self-care (01) ==
PROVIDERS: PCP Internal Medicine Geriatric Medicine; Referring Provider Internal Medicine Geriatric Medicine; Visit Provider Internal Medicine Endocrinology, Diabetes & Metabolism
DX: E10.29 Type 1 diabetes mellitus with other diabetic kidney complication (principal)
CPT/HCPCS: 99214

== ENCOUNTER → 2023-02-17 10:43 | Outpatient (BNVA) | payer MEDICAID, SELFPAY | PROVIDERS: PCP Internal Medicine Geriatric Medicine; Visit Provider Internal Medicine Endocrinology, Diabetes & Metabolism | DX: Z46.81 Encounter for fitting and adjustment of insulin pump (principal); E10.29 Type 1 diabetes mellitus with other diabetic kidney complication; Z79.4 Long term (current) use of insulin | CPT/HCPCS: 82947; 83036; 99212 ==

== ENCOUNTER 2023-03-11 13:50 | Outpatient (AMB) | payer MEDICAID, SELFPAY ==
--- NOTE | 2023-03-11 14:26 | MHC.AMDMED ---
Intake Intake Visit Reasons: DM/CONFIRMED Allergies No Known Allergies [No Known Allergies*] Allergy (Verified 02/17/23 10:54) HPI Comprehensive Diabetes Asmnt Most Recent Diabetes Results: No Data to Display [facility] Medical History (System 12/04/22 @ 14:58 by Nivia Kramer) Kinsey's palsy Hypertension Cerebral palsy Depression Insomnia Proteinuria Type 1 diabetes mellitus with other diabetic kidney complication Hyperlipidemia, unspecified Surgical History H/O colonoscopy Hx of section History of appendectomy Family History Father Lung cancer Mother Colon cancer Diabetes HTN (hypertension) CVD (cardiovascular disease) Social History Household Members: Family and Children Household Members Other:: grandchidren Alcohol intake: never Patient Tobacco Use Status: Never used Tobacco Assessment & Plan Assessment & Plan (1) Type 1 diabetes mellitus with other diabetic kidney complication: Code(s): E10.29 - Type 1 diabetes mellitus with other diabetic kidney complication Plan: Patient presents for pump training for Omni Pod [place] pump and CGM training today. The following topics were reviewed today: -patient received Omnipod dash control a but did not see receive Omnipod dash pods ??? High Alert: 200 mg/dl ??? Low Alert: 70 mg/dl Average glucose for the last 2 weeks 223 mg/dL Above target:? 70% Within target:? 29% Below target:? 1% Patient has still does not have smart phone that is compatible with [employer] G6 sylvie. requested prescription for dash pods from Dr. Murrell After reviewing Dexcom data increase basal rate from 12 AM through 6 PM In an effort to reduce average glucose Insulin delivery settings Troubleshooting after starting new pod or inserting new insulin set: Occlusion, adhesive tape sensitivity, redness Check BG 2 hours after site change Safety information: Patient understands the basic concepts of pump therapy, how to give insulin for meals and snacks, how to troubleshoot for hyper and hypoglycemia. Setting verified by [facility], see changes to basal rates below Basal rate(s) (units/hour) : 12 AM to 7 AM 1.6 units / hr New 12 AM to 7 AM 2.0 units / hr 7 AM? to 12 PM? 1.55 units / hr New 7 AM? to 12 PM? 1.8 units / hr 12 PM? to 6 PM? 1.7 units / hr New 12 PM? to 6 PM? 1.8 units / hr 6 PM? to 8 PM? 1.75 units / hr 8 PM? to 12 AM? 1.8 units / hr Bolus setting Insulin Carbohydrate Ratio (s) 12 AM? to 12 PM? 1:8 12 PM to 12 AM? 1:7 Correction Factor / Sensitivity Factor 12 AM? to 12 PM? 1:30 12 PM? to 8 PM? 1:35 8 PM to 12 AM ? 1:32 Active Insulin Time:? 3 hours Target(s): 12 AM? to 12 AM? 100 Correction threshold: 12 AM? to 12 AM? 120 Patient will follow up with [facility] as instructed Patient Instructions: Follow-up with early childhood special educator in 1 month Coding Level of Care Code Est Pt Level 1 (68909) Diagnoses Type 1 diabetes mellitus with other diabetic kidney complication E10.29
== END 2023-03-11 14:30 | disposition home or self-care (01) ==
PROVIDERS: PCP Internal Medicine Geriatric Medicine; Visit Provider Registered Nurse Diabetes Educator
DX: E10.29 Type 1 diabetes mellitus with other diabetic kidney complication (principal)

== ENCOUNTER → 2023-03-11 13:50 | Outpatient (BNVA) | payer MEDICAID, SELFPAY | PROVIDERS: PCP Internal Medicine Geriatric Medicine; Visit Provider Registered Nurse Diabetes Educator | DX: Z46.81 Encounter for fitting and adjustment of insulin pump (principal); E10.29 Type 1 diabetes mellitus with other diabetic kidney complication | CPT/HCPCS: 99211 ==

== ENCOUNTER 2023-05-06 13:45 | Outpatient (AMB) | payer MEDICAID, SELFPAY ==
--- NOTE | 2023-05-06 14:21 | MHC.AMDMED ---
Intake Intake Visit Reasons: DM-confirmed Retail Customer Service Specialist Required: Yes Retail Customer Service Specialist Language: Ornamental Machine Operator Name: Pt's Daughter Information Interpreted: non-clinical & clinical Accompanied by: Daughter Allergies No Known Allergies [No Known Allergies*] Allergy (Verified 02/17/23 10:54) HPI Comprehensive Diabetes Asmnt Most Recent Diabetes Results: Microalb/Creat Ratio 59.0 ug/mg cr 02/13/22 Cholesterol 159 mg/dL 02/13/22 HDL Cholesterol 49 mg/dL 02/13/22 Triglycerides 80 mg/dL 02/13/22 Creatinine 0.78 mg/dL (0.5-1.4) 02/13/22 Blood Urea Nitrogen 12 mg/dL (9-16) 02/13/22 Sodium 140 mmol/L (135-145) 02/13/22 Potassium 4.1 mmol/L (3.3-5.1) 02/13/22 Chloride 106 mmol/L (96-108) 02/13/22 Carbon Dioxide 26 mmol/L (22-29) 02/13/22 Calcium 9.8 mg/dL (8.4-10.2) 02/13/22 AST 18 U/L (5-31) 02/13/22 ALT 14 U/L (0-31) 02/13/22 Total Protein 7.6 g/dL (6.5-8.0) 02/13/22 Albumin 3.9 g/dL (3.5-5.0) 02/13/22 [facility] Medical History (System 12/04/22 @ 14:58 by Nivia Kramer) Kinsey's palsy Hypertension Cerebral palsy Depression Insomnia Proteinuria Type 1 diabetes mellitus with other diabetic kidney complication Hyperlipidemia, unspecified Surgical History H/O colonoscopy Hx of section History of appendectomy Family History Father Lung cancer Mother Colon cancer Diabetes HTN (hypertension) CVD (cardiovascular disease) Social History Household Members: Family and Children Household Members Other:: grandchidren Alcohol intake: never Patient Tobacco Use Status: Never used Tobacco Assessment & Plan Assessment & Plan (1) Type 1 diabetes mellitus with other diabetic kidney complication: Code(s): E10.29 - Type 1 diabetes mellitus with other diabetic kidney complication Plan: Patient presents for pump training for Omni Pod [place] pump and CGM training today. Patient here to set up new Omnipod dash PDM Settings from old PDM entered, into Omnipod dash. Overnight basal, and morning insulin to carb ratio adjusted based on CGM data see changes below The following topics were reviewed today: -how to calculate mealtime and correction doses if not using insulin pump ??? High Alert: 200 mg/dl ??? Low Alert: 70 mg/dl Average glucose for the last 2 weeks 194 mg/dL Above target:? 59% Within target:? 39% Below target:? 2% Over the past several days patient has had some postprandial hypoglycemia in the early afternoon. This may be due to patient taking fixed dose of Humalog, because she been off insulin pump. Patient given off pump insulin plan in [place], so next time she can calculate doses based on pump setting Patient has only been taking Lantus 15 units while off insulin pump, patient's basal rate is 46 units, request sent to Dr. Murrell to update Lantus script Insulin delivery settings Troubleshooting after starting new pod or inserting new insulin set: Occlusion, adhesive tape sensitivity, redness Check BG 2 hours after site change Safety information: Patient understands the basic concepts of pump therapy, how to give insulin for meals and snacks, how to troubleshoot for hyper and hypoglycemia. Setting verified by [facility], see changes below Basal rate(s) (units/hour) : 12 AM to 7 AM 2.0 units / hr New 12 AM to 7 AM 2.2 units / hr 7 AM? to 6 PM? 1.8 units / hr 6 PM? to 8 PM? 1.9 units / hr 8 PM? to 12 AM? 1.8 units / hr Bolus setting Insulin Carbohydrate Ratio (s) 12 AM? to 12 PM? 1:8 New 12 AM? to 12 PM? 1:7.5 12 PM to 12 AM? 1:7 Correction Factor / Sensitivity Factor 12 AM? to 12 PM? 1:30 12 PM? to 8 PM? 1:35 8 PM to 12 AM ? 1:32 Active Insulin Time:? 4 hours Target(s): 12 AM? to 12 AM? 100 Correction threshold: 12 AM? to 12 AM? 120 Patient will follow up with [facility] as instructed Coding Level of Care Code Est Pt Level 1 (94294) Diagnoses Type 1 diabetes mellitus with other diabetic kidney complication E10.29
== END 2023-05-06 14:22 | disposition home or self-care (01) ==
PROVIDERS: PCP Internal Medicine Geriatric Medicine; Visit Provider Registered Nurse Diabetes Educator
DX: E10.29 Type 1 diabetes mellitus with other diabetic kidney complication (principal)

== ENCOUNTER → 2023-05-06 13:45 | Outpatient (BNVA) | payer MEDICAID, SELFPAY | PROVIDERS: PCP Internal Medicine Geriatric Medicine; Visit Provider Registered Nurse Diabetes Educator | DX: E10.29 Type 1 diabetes mellitus with other diabetic kidney complication (principal); Z46.81 Encounter for fitting and adjustment of insulin pump; Z96.41 Presence of insulin pump (external) (internal) | CPT/HCPCS: 99211 ==

== ENCOUNTER 2023-05-07 08:14 | Outpatient (REF) | payer MEDICAID, SELFPAY ==
[2023-05-07 10:03] LABS: Creatinine Urine 151.49 mg/dL; Microalbum/Creatinine Ratio Ur 25.7 ug/mg cr (<30)
[2023-05-07 10:12] LABS: Anion Gap 10 (12-20); Blood Urea Nitrogen 11 mg/dL (9-16); Calcium 9.2 mg/dL (8.4-10.2); Carbon Dioxide 26 mmol/L (22-29); Chloride 109 mmol/L (96-108); Cholesterol 122 mg/dL (<200); Estimated Glomerular Filt Rate > 60; Glucose Random 100 mg/dL (60-115); HDL Cholesterol 46 mg/dL (>40); LDL Cholesterol Calculated 65 mg/dL (<100); Potassium 3.3 mmol/L (3.3-5.1); Sodium 142 mmol/L (135-145); Triglycerides 58 mg/dL (<150)
[2023-05-07 10:23] LABS: ~HepC Num1 0.15 S/CO (0.00-0.79); ~Hepatitis C Antibody Nonreactive (Nonreactive)
== END 2023-05-07 08:15 | disposition home or self-care (01) ==
LOC: HO.LAB 08:14
PROVIDERS: Internal Medicine Endocrinology, Diabetes & Metabolism; PCP Internal Medicine Geriatric Medicine; Visit Provider Internal Medicine Geriatric Medicine
DX: I10 Essential (primary) hypertension (principal); E10.29 Type 1 diabetes mellitus with other diabetic kidney complication; Z11.59 Encounter for screening for other viral diseases
CPT/HCPCS: 36415; 80048; 80061; 82043; 82570; 86803

== ENCOUNTER 2023-06-07 11:05 | Outpatient (AMB) | payer MEDICAID, SELFPAY ==
[2023-06-07 11:08] VITALS: BP 142/74; PULSE 84; BMI 36.6
--- NOTE | 2023-06-07 11:08 | A.OFFVIS_ITS ---
Vital Signs 06/07/23 11:08 Height 5 ft 3 in Weight 206 lb 9.17 oz BMI 36.6 BP 142/74 H Blood Pressure Location Lt brachial Position Sitting Pulse 84 Pulse Source Pulse Oximeter Intake Visit Reasons: T1DM Intake Note: Patient present today to follow up on Type 1 Diabetes Mellitus. Patient receives DME supplies through: [facility] Patient receives pump supplies through: Pharmacy Last Diabetic Eye exam: 06/04/2023 Last Podiatry Visit: Random Glucose: 61 mg/dl @ 11:18 am. 83 mg/dl @ 11:34am HgA1C: 6.6% Halver Machine Operator Required: Yes Halver Machine Operator Language: Skin Care Consultant Name: Mitali Information Interpreted: non-clinical & clinical Accompanied by: Daughter Allergies No Known Allergies [No Known Allergies*] Allergy (Verified 06/07/23 11:15) Medication List - Last Reconciled 06/07/23 by Edgar Murrell MD atorvastatin 80 mg PO DAILY blood sugar diagnostic (FreeStyle Lite Strips) As directed blood-glucose meter (FreeStyle Lite Meter kit) As directed bupropion HCl SR (Wellbutrin SR) 200 mg PO BID clonazepam 0.5 mg PO BID PRN fluticasone propionate 50 mcg/actuation 0 mcg intranasal glucagon 3 mg/actuation (Baqsimi) 3 mg intranasal ONCE 30 days insulin aspart U-100 75 units (0.75 mL) subcut DAILY insulin pump cart,cont inf,BT ([employer] Dash Pods (Gen 4) subcutaneous cartridge) As directed change every 3 days insulin pump controller ([employer] DASH PDM Kit (Gen 4)) As directed insulin syr/ndl U100 half ravinder (BD Veo Insulin Syringe Ultra-Fine (half unit)) As directed four times a day insulin syringe-needle U-100 (BD Insulin Syringe Ultra-Fine) As directed five times a day lancets (FreeStyle Lancets) As directed Lantus Solostar U-100 Insulin (insulin glargine) 46 units (0.46 mL) subcut DAILY NS lisinopril 2.5 mg PO DAILY pen needle, diabetic (BD Ultra-Fine Marisa Pen Needle) As directed once daily prazosin 2 mg PO BEDTIME quetiapine ER 150 mg PO DAILY sertraline 100 mg PO DAILY HPI Comments Details: Patient is 57 yo female with DM type 1 diagnosed at age 27 who presents for visit for continued diabetes management. Past medical history includes depression, hyperlipidemia Micro and macrovascular complications include retinopathy with photocoagulation, neuropathy, Diabetes medications: Novolog via Omnipod Classic pump with Dexcom G6. 69% basal 31% bolus, 65.3 units daily 120g of carbs per day. Basal rate(s) (units/hour) : 12 AM to 7 AM 2.0 units / hr New 12 AM to 7 AM 2.2 units / hr 7 AM? to 6 PM? 1.8 units / hr 6 PM? to 8 PM? 1.9 units / hr 8 PM? to 12 AM? 1.8 units / hr Bolus setting Insulin Carbohydrate Ratio (s) 12 AM? to 12 PM? 1:8 New 12 AM? to 12 PM? 1:7.5 12 PM to 12 AM? 1:7 Correction Factor / Sensitivity Factor 12 AM? to 12 PM? 1:30 12 PM? to 8 PM? 1:35 8 PM to 12 AM ? 1:32 Active Insulin Time:? 4 hours Target(s): 12 AM? to 12 AM? 100 Correction threshold: 12 AM? to 12 AM? 120 Continuous glucose monitor: Average blood glucose the last 2 weeks 151 GMI of 6.9 , C GM 97.7% active. Blood glucose very low less than 54, <1%. Glucose low less than 70 2% Glucose in target range of 70-180, 72 %. Glucose high over 180, 23%. Glucose very high over 250, 3%. Coefficient variation 60. Hypoglycemia is occurring primarily overnight Has f/u appt with CDE Symptoms reported: denies numbness, tingling in feet Hypoglycemia: infrequently in AM Hyperglycemia: denies polyuria Exercise: limited due to foot fracture. Eye exam: last wk Does not know how to self make changes in pump PFSH Medical History (System 12/04/22 @ 14:58 by Nivia Kramer) Kinsey's palsy Hypertension Cerebral palsy Depression Insomnia Proteinuria Type 1 diabetes mellitus with other diabetic kidney complication Hyperlipidemia, unspecified Surgical History H/O colonoscopy Hx of section History of appendectomy Family History Father Lung cancer Mother Colon cancer Diabetes HTN (hypertension) CVD (cardiovascular disease) Social History Household Members: Family and Children Household Members Other:: grandchidren Alcohol intake: never Patient Tobacco Use Status: Never used Tobacco Physical Exam Vital Signs: Last Vital Signs Pulse 84 06/07/23 11:08 BP 142/74 H 06/07/23 11:08 BMI result Body Mass Index 36.6 Absence of Cushingoid features. Absence of acromegalic features. Neck exam reveals nl size thyroid about 15 gms. No thyroid nodules palpable. No carotid bruits present. Lungs CTA. Heart S1 S2, Reg R/R. No M/R/ G. Skin exam reveals absence of vitiligo or acanthosis nigricans. Abdominal exam reveals Soft NT/ND with NA BS. No organomegaly present. Extrem Other: Visual exam of foot performed. No ulcerations or open lesions. No onchomycosis, no callouses.Pulses 2 + distally. Sensation intact to monofilament exam. Vibratory sensation sensed 10 seconds is decreased in both lower extremities Results AMB Hemoglobin A1c AMB Hemoglobin A1c 6.6 % Last Edit by IVETH Sylvester on 06/07/23 11:29 Results Reviewed Results Reviewed: Laboratory Last Values Glucose (Clinic) 61 mg/dL (60-115) 06/07/23 11:17 Assessment & Plan Assessment & Plan (1) Type 1 diabetes mellitus with other diabetic kidney complication: Code(s): E10.29 - Type 1 diabetes mellitus with other diabetic kidney complication Category: Medical Plan: This is a 56-year-old female with a history of type 1 diabetes being managed with a Omnipod dash pump with Dexcom G6 with excellent overall glycemic control but improved over last 3 months due to not using pump and known microvascular complications namely micro albuminuria, neuropathy and retinopathy. She is having some hypoglycemia overnight . Will have patient follow up with sports photographer. Will need to decrease basal overnight to 2.1 units per hr . Will add bolus at 5 PM -12AM at 1:6.5 Orders: Orders AMB Hemoglobin A1c Today E10.29 - Type 1 diabetes mellitus with other diabetic kidney complication, Z13.9 - Encounter for screening, unspecified Medications: New insulin pump cart,auto,BT-cntr (Omnipod 5 G6 Intro Kit (Gen 5) subcutaneous cartridge with controller) As directed 1 ea 0 insulin pump cart,automated,BT (Omnipod 5 G6 Pods (Gen 5) subcutaneous cartridge) As directed 10 ea 5RF Discontinued insulin pump cart,cont inf,BT (Omnipod Dash Pods (Gen 4) subcutaneous cartridge) Discontinued Reason: Doctor's Order As directed change every 3 days 5 ea 4RF Coding Level of Care Code Est Pt Level 4 (10064) Diagnoses Type 1 diabetes mellitus with other diabetic kidney complication E10.29
[2023-06-07 11:23] LABS: Glucose, Whole Blood 61 mg/dL (60-115)
[2023-06-07 11:37] LABS: Glucose, Whole Blood 83 mg/dL (60-115)
== END 2023-06-07 11:47 | disposition home or self-care (01) ==
PROVIDERS: PCP Internal Medicine Geriatric Medicine; Referring Provider Internal Medicine Geriatric Medicine; Visit Provider Internal Medicine Endocrinology, Diabetes & Metabolism
DX: Z13.9 Encounter for screening, unspecified (principal); E10.29 Type 1 diabetes mellitus with other diabetic kidney complication
CPT/HCPCS: 99214

== ENCOUNTER → 2023-06-07 11:05 | Outpatient (BNVA) | payer MEDICAID, SELFPAY | PROVIDERS: PCP Internal Medicine Geriatric Medicine; Visit Provider Internal Medicine Endocrinology, Diabetes & Metabolism | DX: E10.29 Type 1 diabetes mellitus with other diabetic kidney complication (principal); E10.649 Type 1 diabetes mellitus with hypoglycemia without coma; Z96.41 Presence of insulin pump (external) (internal) | CPT/HCPCS: 82947; 83036; 99212 ==

== ENCOUNTER 2023-07-06 14:56 | Outpatient (AMB) | payer MEDICAID, SELFPAY ==
--- NOTE | 2023-07-06 15:40 | MHC.AMDMED ---
Intake Intake Visit Reasons: DM Distribution Supervisor Required: Yes Distribution Supervisor Language: Drag Seiner Name: [facility] [place] Accompanied by: Daughter Allergies No Known Allergies [No Known Allergies*] Allergy (Verified 06/07/23 11:15) HPI Comprehensive Diabetes Asmnt Most Recent Diabetes Results: Microalb/Creat Ratio 25.7 ug/mg cr (<30) 05/07/23 Cholesterol 122 mg/dL (<200) 05/07/23 HDL Cholesterol 46 mg/dL (>40) 05/07/23 Triglycerides 58 mg/dL (<150) 05/07/23 Creatinine 0.76 mg/dL (0.5-1.4) 05/07/23 Blood Urea Nitrogen 11 mg/dL (9-16) 05/07/23 Sodium 142 mmol/L (135-145) 05/07/23 Potassium 3.3 mmol/L (3.3-5.1) 05/07/23 Chloride 109 mmol/L (96-108) H 05/07/23 Carbon Dioxide 26 mmol/L (22-29) 05/07/23 Calcium 9.2 mg/dL (8.4-10.2) 05/07/23 AST 18 U/L (5-31) 02/13/22 ALT 14 U/L (0-31) 02/13/22 Total Protein 7.6 g/dL (6.5-8.0) 02/13/22 Albumin 3.9 g/dL (3.5-5.0) 02/13/22 [facility] Medical History (System 12/04/22 @ 14:58 by Nivia Kramer) Kinsey's palsy Hypertension Cerebral palsy Depression Insomnia Proteinuria Type 1 diabetes mellitus with other diabetic kidney complication Hyperlipidemia, unspecified Surgical History H/O colonoscopy Hx of section History of appendectomy Family History Father Lung cancer Mother Colon cancer Diabetes HTN (hypertension) CVD (cardiovascular disease) Social History Household Members: Family and Children Household Members Other:: grandchidren Alcohol intake: never Patient Tobacco Use Status: Never used Tobacco Assessment & Plan Assessment & Plan (1) Type 1 diabetes mellitus with other diabetic kidney complication: Code(s): E10.29 - Type 1 diabetes mellitus with other diabetic kidney complication Plan: Patient presents for pump training for Omni Pod Dash pump and CGM. The following topics were reviewed today: -how to calculate mealtime and correction doses if not using insulin pump ??? High Alert: 200 mg/dl ??? Low Alert: 70 mg/dl Average glucose for the last 2 weeks 152 mg/dL Above target:? 26% Within target:? 72% Below target:? 2% Patient having some overnight hypoglycemia, reduce basal rate at night see change below. Patient is also having postprandial hyperglycemia in the evening, reviewed basic carb counting patient seems to be able to estimate appropriate. See changed insulin to carb ratio in the evening. At this visit we are unable to set up Belly Ballot G6 sylvie, instructed patient to get Belly Ballot log information and return next week for sylvie set up Insulin delivery settings Troubleshooting after starting new pod or inserting new insulin set: Occlusion, adhesive tape sensitivity, redness Check BG 2 hours after site change Safety information: Patient understands the basic concepts of pump therapy, how to give insulin for meals and snacks, how to troubleshoot for hyper and hypoglycemia. Setting [facility] by [facility], see changes below Basal rate(s) (units/hour) : 12 AM to 7 AM 2.1 units / hr New 12 AM to 7 AM 1.8 units / hr 7 AM? to 6 PM? 1.8 units / hr 6 PM? to 8 PM? 1.9 units / hr 8 PM? to 12 AM? 1.8 units / hr Bolus setting Insulin Carbohydrate Ratio (s) 12 AM? to 12 PM? 1:7.5 12 PM to 5 PM? 1:7 5 PM to 12 AM 1:6.5 New 5 PM to 12 AM 1:6 Correction Factor / Sensitivity Factor 12 AM? to 12 PM? 1:30 12 PM? to 8 PM? 1:35 8 PM to 12 AM ? 1:32 Active Insulin Time:? 4 hours Target(s): 12 AM? to 12 AM? 100 Correction threshold: 12 AM? to 12 AM? 120 Patient will follow up with [facility] as instructed, in 1 week to set up Dexcom account. After Dexcom sounds set up patient is interested in Omnipod 5 Coding Level of Care Code Est Pt Level 1 (08373) Diagnoses Type 1 diabetes mellitus with other diabetic kidney complication E10.29
== END 2023-07-06 15:45 | disposition home or self-care (01) ==
PROVIDERS: PCP Internal Medicine Geriatric Medicine; Visit Provider Registered Nurse Diabetes Educator
DX: E10.29 Type 1 diabetes mellitus with other diabetic kidney complication (principal)

== ENCOUNTER → 2023-07-06 14:56 | Outpatient (BNVA) | payer MEDICAID, SELFPAY | PROVIDERS: PCP Internal Medicine Geriatric Medicine; Visit Provider Registered Nurse Diabetes Educator | DX: Z46.81 Encounter for fitting and adjustment of insulin pump (principal); E10.29 Type 1 diabetes mellitus with other diabetic kidney complication; Z79.4 Long term (current) use of insulin | CPT/HCPCS: 99211 ==

== ENCOUNTER 2023-07-14 11:40 | Outpatient (REF) | payer MEDICAID, SELFPAY ==
--- NOTE | ~2023-07-14 | MM_ITS ---
EXAMINATION: MM SCREENING DIGITAL BREAST TOMOSYNTHESIS, BILATERAL CLINICAL INFORMATION: Screening. Asymptomatic. COMPARISON: Mammography: This study is compared with prior exams dating back to 2019. TECHNIQUE: Digital breast tomosynthesis is performed in both the craniocaudal and mediolateral oblique views along with computer-aided detection (CAD). Synthesized 2D images are generated from the tomosynthesis. FINDINGS: There are scattered areas of fibroglandular density (ACR BI-RADS breast composition Category b). There are no significant masses, abnormal calcifications, or other abnormalities. Few, bilateral, benign secretory calcifications are present in each breast. MM/MM tomosynthesis screening BI IMPRESSION: No mammographic evidence of malignancy. ASSESSMENT: BI-RADS BI-RADS 2 - Benign Findings RECOMMENDATION: Routine annual mammography screening. 1 year F/U This examination should not preclude the clinical evaluation of a suspicious palpable abnormality. This patient's information was entered into a reminder system with a target due date for their next mammogram.
== END 2023-07-14 11:41 | disposition home or self-care (01) ==
LOC: HO.MAMMO 11:40
PROVIDERS: PCP Internal Medicine Geriatric Medicine; Visit Provider Internal Medicine Geriatric Medicine
DX: Z12.31 Encounter for screening mammogram for malignant neoplasm of breast (principal)
CPT/HCPCS: 77063; 77067

== ENCOUNTER → 2023-07-14 12:15 | Outpatient (BNV) | payer MEDICAID, SELFPAY | PROVIDERS: PCP Internal Medicine Geriatric Medicine; Visit Provider Radiology Diagnostic Radiology | DX: Z12.31 Encounter for screening mammogram for malignant neoplasm of breast (principal) | CPT/HCPCS: 77063; 77067 ==

== ENCOUNTER 2023-07-15 15:45 | Outpatient (AMB) | payer MEDICAID, SELFPAY ==
--- NOTE | 2023-07-15 16:30 | MHC.AMDMED ---
Intake Intake Visit Reasons: Dexcom set up/CONIFRMED Rn Gynecology Required: Yes Rn Gynecology Language: Flask Cleaner Name: [place] [facility] Information Interpreted: non-clinical & clinical Allergies No Known Allergies [No Known Allergies*] Allergy (Verified 06/07/23 11:15) [facility] Comprehensive Diabetes Asmnt Most Recent Diabetes Results: Microalb/Creat Ratio 25.7 ug/mg cr (<30) 05/07/23 Cholesterol 122 mg/dL (<200) 05/07/23 HDL Cholesterol 46 mg/dL (>40) 05/07/23 Triglycerides 58 mg/dL (<150) 05/07/23 Creatinine 0.76 mg/dL (0.5-1.4) 05/07/23 Blood Urea Nitrogen 11 mg/dL (9-16) 05/07/23 Sodium 142 mmol/L (135-145) 05/07/23 Potassium 3.3 mmol/L (3.3-5.1) 05/07/23 Chloride 109 mmol/L (96-108) H 05/07/23 Carbon Dioxide 26 mmol/L (22-29) 05/07/23 Calcium 9.2 mg/dL (8.4-10.2) 05/07/23 PFSH Medical History (System 12/04/22 @ 14:58 by Nivia Kramer) Kinsey's palsy Hypertension Cerebral palsy Depression Insomnia Proteinuria Type 1 diabetes mellitus with other diabetic kidney complication Hyperlipidemia, unspecified Surgical History H/O colonoscopy Hx of section History of appendectomy Family History Father Lung cancer Mother Colon cancer Diabetes HTN (hypertension) CVD (cardiovascular disease) Social History Household Members: Family and Children Household Members Other:: grandchidren Alcohol intake: never Patient Tobacco Use Status: Never used Tobacco Assessment & Plan Assessment & Plan (1) Type 1 diabetes mellitus with other diabetic kidney complication: Code(s): E10.29 - Type 1 diabetes mellitus with other diabetic kidney complication Plan: Patient at visit to set up Dexcom G6 Instructed patient sensors water proof you can shower, or swim do not submerge sensor in water for over 30 minutes Is sensor falls off cannot put back in you need to replace sensor, customer service number given to patient for sensor replacement Dexcom G6 sylvie downloaded and set up on patient's phone Were unable to download Dexcom clarity sylvie Reviewed how to interpret trend arrows Reminded patient that to check finger sticks if symptoms do not match sensor reading. Discussed lag time between finger stick and sensor data.? Instructed patient she should always keep blood glucometer for backup testing if needed Reviewed delay of CGM from fingersticks Reminded pt that if symptoms do not match sensor still needs to check fingersticks. Message sent to Dr. Murrell to send prescriptions for Omnipod starter kit and pods Portions of this note were created using voice recognition software, please excuse any words or phrases that may have been misinterpreted. Coding Level of Care Code Est Pt Level 1 (69700) Diagnoses Type 1 diabetes mellitus with other diabetic kidney complication E10.29
== END 2023-07-15 16:34 | disposition home or self-care (01) ==
PROVIDERS: PCP Internal Medicine Geriatric Medicine; Visit Provider Registered Nurse Diabetes Educator
DX: E10.29 Type 1 diabetes mellitus with other diabetic kidney complication (principal)

== ENCOUNTER → 2023-07-15 15:45 | Outpatient (BNVA) | payer MEDICAID, SELFPAY | PROVIDERS: PCP Internal Medicine Geriatric Medicine; Visit Provider Registered Nurse Diabetes Educator | DX: E10.29 Type 1 diabetes mellitus with other diabetic kidney complication (principal) | CPT/HCPCS: 99211 ==

== ENCOUNTER 2023-07-28 15:04 | Outpatient (AMB) | payer MEDICAID, SELFPAY ==
--- NOTE | 2023-07-28 15:32 | MHC.AMDMED ---
Intake Intake Visit Reasons: pump training/CONFIRMED Forest Ranger Technician Required: Yes Forest Ranger Technician Language: Mash Tub Cooker Operator Name: Luz[place] [facility] Information Interpreted: non-clinical & clinical Accompanied by: Daughter Allergies No Known Allergies [No Known Allergies*] Allergy (Verified 06/07/23 11:15) HPI Comprehensive Diabetes Asmnt Most Recent Diabetes Results: Microalb/Creat Ratio 25.7 ug/mg cr (<30) 05/07/23 Cholesterol 122 mg/dL (<200) 05/07/23 HDL Cholesterol 46 mg/dL (>40) 05/07/23 Triglycerides 58 mg/dL (<150) 05/07/23 Creatinine 0.76 mg/dL (0.5-1.4) 05/07/23 Blood Urea Nitrogen 11 mg/dL (9-16) 05/07/23 Sodium 142 mmol/L (135-145) 05/07/23 Potassium 3.3 mmol/L (3.3-5.1) 05/07/23 Chloride 109 mmol/L (96-108) H 05/07/23 Carbon Dioxide 26 mmol/L (22-29) 05/07/23 Calcium 9.2 mg/dL (8.4-10.2) 05/07/23 [facility] Medical History (System 12/04/22 @ 14:58 by Nivia Kramer) Kinsey's palsy Hypertension Cerebral palsy Depression Insomnia Proteinuria Type 1 diabetes mellitus with other diabetic kidney complication Hyperlipidemia, unspecified Surgical History H/O colonoscopy Hx of section History of appendectomy Family History Father Lung cancer Mother Colon cancer Diabetes HTN (hypertension) CVD (cardiovascular disease) Social History Household Members: Family and Children Household Members Other:: grandchidren Alcohol intake: never Patient Tobacco Use Status: Never used Tobacco Assessment & Plan Assessment & Plan (1) Type 1 diabetes mellitus with other diabetic kidney complication: Code(s): E10.29 - Type 1 diabetes mellitus with other diabetic kidney complication Plan: Patient has not picked up Omnipod 5 starter kit. So we need to reschedule pump training appointment Confirmed with patient's pharmacy that she can pick it up. Instructed patient to bring Omnipod 5 starter kit, a vial of insulin and her Dexcom G6 sensor to next pump training appointment on 08/04/2023 Coding Level of Care Code Est Pt Level 1 (07721) Diagnoses Type 1 diabetes mellitus with other diabetic kidney complication E10.29
== END 2023-07-28 15:43 | disposition home or self-care (01) ==
PROVIDERS: PCP Internal Medicine Geriatric Medicine; Visit Provider Registered Nurse Diabetes Educator
DX: E10.29 Type 1 diabetes mellitus with other diabetic kidney complication (principal)

== ENCOUNTER → 2023-07-28 15:04 | Outpatient (BNVA) | payer MEDICAID, SELFPAY | PROVIDERS: PCP Internal Medicine Geriatric Medicine; Visit Provider Registered Nurse Diabetes Educator | DX: E10.29 Type 1 diabetes mellitus with other diabetic kidney complication (principal) | CPT/HCPCS: 99211 ==

== ENCOUNTER 2023-08-04 09:44 | Outpatient (AMB) | payer MEDICAID, SELFPAY ==
--- NOTE | 2023-08-04 10:51 | A.OFFVIS_ITS ---
Intake Intake Visit Reasons: Pump/CONFIRMED Metal Control Worker Required: Yes Metal Control Worker Language: Indonesian Accompanied by: Self / Same As Patient Allergies No Known Allergies [No Known Allergies*] Allergy (Verified 06/07/23 11:15) HPI Comprehensive Diabetes Asmnt Most Recent Diabetes Results: Microalb/Creat Ratio 25.7 ug/mg cr (<30) 05/07/23 Cholesterol 122 mg/dL (<200) 05/07/23 HDL Cholesterol 46 mg/dL (>40) 05/07/23 Triglycerides 58 mg/dL (<150) 05/07/23 Creatinine 0.76 mg/dL (0.5-1.4) 05/07/23 Blood Urea Nitrogen 11 mg/dL (9-16) 05/07/23 Sodium 142 mmol/L (135-145) 05/07/23 Potassium 3.3 mmol/L (3.3-5.1) 05/07/23 Chloride 109 mmol/L (96-108) H 05/07/23 Carbon Dioxide 26 mmol/L (22-29) 05/07/23 Calcium 9.2 mg/dL (8.4-10.2) 05/07/23 [facility] Medical History (System 12/04/22 @ 14:58 by Nivia Kramer) Kinsey's palsy Hypertension Cerebral palsy Depression Insomnia Proteinuria Type 1 diabetes mellitus with other diabetic kidney complication Hyperlipidemia, unspecified Surgical History H/O colonoscopy Hx of section History of appendectomy Family History Father Lung cancer Mother Colon cancer Diabetes HTN (hypertension) CVD (cardiovascular disease) Social History Household Members: Family and Children Household Members Other:: grandchidren Alcohol intake: never Patient Tobacco Use Status: Never used Tobacco Assessment & Plan Assessment & Plan (1) Type 1 diabetes mellitus with other diabetic kidney complication: Code(s): E10.29 - Type 1 diabetes mellitus with other diabetic kidney complication Plan: Patient presents for pump training for Omni pod 5 pump and CGM training today. Patient is here to transition from Omnipod dash to Omnipod 5 The following topics were reviewed today: -Pump therapy basic concepts: Basal/bolus, insulin to carb ratio, correction factor, insulin on board -Device settings: Bluetooth/mobile connection (if applicable), correct date and time, sound volume -CGM settings(if integrated system): CGM graft views and trend arrows, alerts and alarms, Start new sensor ??? High Alert: 180 mg/dl ??? Low Alert: 70 mg/dl Reviewed with patient how to switch from manual mode to auto mode You discussed using integrated insulin pump and CGM Insulin delivery settings Program insulin to carb ratio, correction factor, target blood glucose, suspend or resume insulin delivery, bolus limit and basal limit settings Instructed patient to only use room temperature insulin, how to load cartridge or fill pod, with insulin. Fill tubing and cannula (if applicable) Inserting infusion set or starting pod Troubleshooting after starting new pod or inserting new insulin set: Occlusion, adhesive tape sensitivity, redness Check BG 2 hours after site change Safety information: Importance of a backup plan, for manual injections, proper prescriptions and emergency supplies ketone strips, and rules for testing for ketones Patient was able to insert insulin set today without difficulty. Patient understands the basic concepts of pump therapy, how to give insulin for meals and snacks, how to troubleshoot for hyper and hypoglycemia. Setting verified by [facility] Basal rate(s) (units/hour) : 12 AM to 7 AM 1.8 units / hr 7 AM? to 6 PM? 1.8 units / hr 6 PM? to 8 PM? 1.9 units / hr 8 PM? to 12 AM? 1.8 units / hr Bolus setting Insulin Carbohydrate Ratio (s) 12 AM? to 12 PM? 1:7.5 12 PM to 5 PM? 1:7 5 PM to 12 AM 1:6 Correction Factor / Sensitivity Factor 12 AM? to 12 PM? 1:30 12 PM? to 8 PM? 1:35 8 PM to 12 AM ? 1:32 Active Insulin Time:? 4 hours Target(s): 12 AM? to 12 AM? 100 Correction threshold: 12 AM? to 12 AM? 120 Patient will follow up with [facility] as instructed Patient will contact [facility] with questions or concerns, patient given IT number to support in any technical issues related to insulin pump Portions of this note were created using voice recognition software, please excuse any words or phrases that may have been misinterpreted. Patient Instructions: Contact wellness educator with questions or concerns Follow-up with wellness educator in 1 week Coding Level of Care Code Est Pt Level 1 (45561) Diagnoses Type 1 diabetes mellitus with other diabetic kidney complication E10.29
== END 2023-08-04 10:56 | disposition home or self-care (01) ==
PROVIDERS: PCP Internal Medicine Geriatric Medicine; Visit Provider Registered Nurse Diabetes Educator
DX: E10.29 Type 1 diabetes mellitus with other diabetic kidney complication (principal)

== ENCOUNTER → 2023-08-04 09:44 | Outpatient (BNVA) | payer MEDICAID, SELFPAY | PROVIDERS: PCP Internal Medicine Geriatric Medicine; Visit Provider Registered Nurse Diabetes Educator | DX: Z46.81 Encounter for fitting and adjustment of insulin pump (principal); E10.29 Type 1 diabetes mellitus with other diabetic kidney complication | CPT/HCPCS: 99211 ==

== ENCOUNTER 2023-09-07 10:21 | Outpatient (AMB) | payer MEDICAID, SELFPAY ==
--- NOTE | 2023-09-07 10:23 | A.OFFVIS_ITS ---
Vital Signs 09/07/23 10:24 Height 5 ft 3 in Weight 205 lb 0.478 oz BMI 36.3 BP 128/82 Blood Pressure Location Rt brachial Position Sitting Pulse 100 Pulse Source Pulse Oximeter Intake Visit Reasons: DM 1/CONFIRMED Intake Note: New Patient presents today to establish treatment for Type 1 Diabetes Mellitus: Last Diabetic Eye exam: 06/04/2023 Last Podiatry Exam: Does not see a Industrial Gas Fitter Helper Patient receives DME supplies through: [facility] Patient receives pump supplies through: Pharmacy Most recent HbA1c: 6.9%, 09/07/2023 Random Glucose- 162mg/dL, Today Hot Blaster Required: Yes Hot Blaster Language: Intervention Specialist Services: Hot Blaster Present Hot Blaster Name: [facility] [place] MARKER Accompanied by: Self / Same As Patient Allergies No Known Allergies [No Known Allergies*] Allergy (Verified 09/07/23 10:23) HPI Comments Details: Patient is 57 yo female with DM type 1 diagnosed at age 27 who presents for visit for continued diabetes management. She was last seen by CDDaren 2 months ago and by Dr. Murrell in May. A1C in the office today is 6.9% Past medical history includes depression, hyperlipidemia Micro and macrovascular complications include retinopathy with photocoagulation, neuropathy, Diabetes medications: Novolog via Omnipod Classic pump with Dexcom G6. Dexcom average glucose: [146 ] Glucose Managment indicator [ ] % TIme in range: [ 9] % very high (above 250) Twenty-nine % high ?(181-250) 62 % in range ?(70-180] 0 % low (69-55) 0 % ?very low (below 54) She is in auto mode 83% of the time. Basal rate(s) (units/hour) : 12 AM to 7 AM 2.3 units / hr 7 AM? to 6 PM? 1.8 units / hr 6 PM? to 8 PM? 1.9 units / hr 8 PM? to 12 AM? 1.8 units / hr Bolus setting Insulin Carbohydrate Ratio (s) 12 AM? to 12 PM? 1:7.5 12 PM to 5 PM? 1:7 5 PM to 12 AM 1:6.5 Correction Factor / Sensitivity Factor 12 AM? to 12 PM? 1:30 12 PM? to 8 PM? 1:32 8 PM to 12 AM ? 1:32 Active Insulin Time:? 4 hours Target(s): 12 AM? to 12 AM? 120 Correction threshold: 12 AM? to 12 AM? 120 She does not carry sugar tablets Last eye exam 06/04/23 She no longer has a glucagon nasal spray kit at home. [facility] Medical History Kinsey's palsy Hypertension Cerebral palsy Depression Insomnia Proteinuria Type 1 diabetes mellitus with other diabetic kidney complication Hyperlipidemia, unspecified Surgical History H/O colonoscopy Hx of section History of appendectomy Family History Father Lung cancer Mother Colon cancer Diabetes HTN (hypertension) CVD (cardiovascular disease) Social History Household Members: Family and Children Household Members Other:: grandchidren Alcohol intake: never Patient Tobacco Use Status: Never used Tobacco Physical Exam Vital Signs: Last Vital Signs Pulse 100 09/07/23 10:24 BP 128/82 09/07/23 10:24 BMI result Body Mass Index 36.3 Const General: cooperative and healthy appearing Nutritional Appearance: overweight Neck Neck: Yes normal visual inspection Thyroid: Thyroid normal Resp Effort & Inspection: normal respiratory effort Cardio Jugular venous distension: no JVD Rate: regular rate Rhythm: regular rhythm Heart sounds: S1 normal heart sound present and S2 normal heart sound present Extrem Other: Visual exam of foot performed. No ulcerations or open lesions. No onchomycosis, no callouses. Sensation intact no edema Results AMB Hemoglobin A1c AMB Hemoglobin A1c 6.9 % Last Edit by IVETH Gaona on 09/07/23 10:43 Results Reviewed Results Reviewed: Laboratory Last Values Glucose (Clinic) 162 mg/dL (60-115) H 09/07/23 10:29 Hgb A1c (Clinic) 6.9 % (4.0-6.0) H 09/07/23 10:41 Assessment & Plan Assessment & Plan (1) Type 1 diabetes mellitus with other diabetic kidney complication: Code(s): E10.29 - Type 1 diabetes mellitus with other diabetic kidney complication Category: Medical Plan: A1c of 6.9% in excellent control in a 57-year-old type 1 diabetic. She is in auto mode 83% of the time she was encouraged to try to stay in the majority of the time. She was also encouraged to measure her rice with the dinner meal for a few days and try to stick to 45 carb g of rice. She walks daily. Blood pressure and cholesterol are in good range. Urine ketone test strips and nasal glucagon was sent. Patient teaching: Symptoms of DKA were reviewed: early: frequent urination, dry mouth, ketones in the urine, severe symptoms: abdominal pain, nausea, vomiting and weakness. It is important to hydrate with sugar free liquids every 30 minutes and bring the sugars down to normal levels. The patient was counseled to always carry a source of sugar and on the rule of 15's: Take 3 glucose tablets and repeat again in 15 minutes if blood sugar is not in normal range. Continue to repeat every 15 minutes until blood sugar is normal. High glucose protocol discussed with patient and backup insulin plan is 41 units once daily for pump failure along with usual doses of Humalog. This was explained extensively with the use of an deaf interpreter but she may need review of this at next visit. Orders: Orders AMB Hemoglobin A1c Today E11.9 - Type 2 diabetes mellitus without complications Medications: New acetone (urine) test (Ketone Urine Test strips) As directed for glucose over 250 or nausea and vomiting. Follow directions on package prn tid 50 ea 3RF Refilled glucagon 3 mg/actuation (Baqsimi) Jupiter once for severe hypoglycemia when patient cannot self-treat with glucose. Afterwards turn on side. May repeat after 15 minutes if patient does not respond. 3 mg intranasal ONCE 30 days 2 ea 6RF unresponsive hypoglycemia [id number] Coding Level of Care Code Est Pt Level 5 (67957) Complex EM visit Add On G2211 Diagnoses Type 1 diabetes mellitus with other diabetic kidney complication E10.29 Time Spent (min) 60 Comment Time spent reviewing labs/previous provider notes, face to face, chart documentation
[2023-09-07 10:24] VITALS: BP 128/82; PULSE 100; BMI 36.3
[2023-09-07 10:33] LABS: Glucose, Whole Blood 162 mg/dL (60-115)
== END 2023-09-07 10:54 | disposition home or self-care (01) ==
PROVIDERS: PCP Internal Medicine Geriatric Medicine; Visit Provider Nurse Practitioner Adult Health
DX: E11.9 Type 2 diabetes mellitus without complications (principal); E10.29 Type 1 diabetes mellitus with other diabetic kidney complication
CPT/HCPCS: 99215

== ENCOUNTER → 2023-09-07 10:21 | Outpatient (BNVA) | payer MEDICAID, SELFPAY | PROVIDERS: PCP Internal Medicine Geriatric Medicine; Visit Provider Nurse Practitioner Adult Health | DX: Z46.81 Encounter for fitting and adjustment of insulin pump (principal); E10.29 Type 1 diabetes mellitus with other diabetic kidney complication | CPT/HCPCS: 82947; 83036; 99212 ==

== ENCOUNTER 2023-09-13 14:22 | Outpatient (AMB) | payer MEDICAID, SELFPAY ==
--- NOTE | 2023-09-13 14:46 | MHC.AMDMED ---
Intake Intake Visit Reasons: 60 min/lvm Glove Parts Inspector Required: Yes Glove Parts Inspector Language: Foam Rubber Molder Services: Glove Parts Inspector Present Glove Parts Inspector Name: Nesha [facility] [place] Accompanied by: Daughter Allergies No Known Allergies [No Known Allergies*] Allergy (Verified 09/07/23 10:23) HPI Comprehensive Diabetes Asmnt Most Recent Diabetes Results: No Data to Display [facility] Medical History Kinsey's palsy Hypertension Cerebral palsy Depression Insomnia Proteinuria Type 1 diabetes mellitus with other diabetic kidney complication Hyperlipidemia, unspecified Surgical History H/O colonoscopy Hx of section History of appendectomy Family History Father Lung cancer Mother Colon cancer Diabetes HTN (hypertension) CVD (cardiovascular disease) Social History Household Members: Family and Children Household Members Other:: grandchidren Alcohol intake: never Patient Tobacco Use Status: Never used Tobacco Assessment & Plan Assessment & Plan (1) Type 1 diabetes mellitus with other diabetic kidney complication: Code(s): E10.29 - Type 1 diabetes mellitus with other diabetic kidney complication Plan: Patient presents for pump training for Omni pod 5 pump and CGM training today. The following topics were reviewed today: -rules about testing for ketones -rules about using glucagon nasal spray ??? High Alert: 180 mg/dl ??? Low Alert: 70 mg/dl CGM Data: Patient's average glucose for the past 14 days 165 mg/dL Patient above target 35% Patient at target 65% Patient below target 0% Patient in auto mode 83% Manual mode 17% Basal insulin: 68% Bolus insulin: 32% Patient using average total daily dose of 60 units Patient's glucose levels have improved since initiating insulin pump therapy with Omnipod 5, patient given copy of off pump insulin plan. Bolus calc sylvie downloaded onto patient's smart phone, pump settings entered into sylvie. demonstrated for patient how to calculate both correction and mealtime boluses with sylvie in the event she can not use her insulin pump Prescription for insulin syringes requesting Insulin delivery settings Instructed patient to only use room temperature insulin, how to load cartridge or fill pod, with insulin. Fill tubing and cannula (if applicable) Inserting infusion set or starting pod Troubleshooting after starting new pod or inserting new insulin set: Occlusion, adhesive tape sensitivity, redness Check BG 2 hours after site change Safety information: Importance of a backup plan, for manual injections, proper prescriptions and emergency supplies ketone strips, and rules for testing for ketones Patient was able to insert insulin set today without difficulty. Patient understands the basic concepts of pump therapy, how to give insulin for meals and snacks, how to troubleshoot for hyper and hypoglycemia. Setting verified by [facility], no changes made to patient's insulin pump settings at today's Basal rate(s) (units/hour) : 12 AM to 7 AM 1.8 units / hr 7 AM? to 6 PM? 1.8 units / hr 6 PM? to 8 PM? 1.9 units / hr 8 PM? to 12 AM? 1.8 units / hr Bolus setting Insulin Carbohydrate Ratio (s) 12 AM? to 12 PM? 1:7.5 12 PM to 5 PM? 1:7 5 PM to 12 AM 1:6 Correction Factor / Sensitivity Factor 12 AM? to 12 PM? 1:30 12 PM? to 8 PM? 1:35 8 PM to 12 AM ? 1:32 Active Insulin Time:? 4 hours Target(s): 12 AM? to 12 AM? 110 Correction threshold: 12 AM? to 12 AM? 120 Patient will follow up with [facility] as instructed Patient will contact [facility] with questions or concerns, patient given IT number to support in any technical issues related to insulin pump Coding Level of Care Code Est Pt Level 1 (88643) Diagnoses Type 1 diabetes mellitus with other diabetic kidney complication E10.29
== END 2023-09-13 15:11 | disposition home or self-care (01) ==
PROVIDERS: PCP Internal Medicine Geriatric Medicine; Visit Provider Registered Nurse Diabetes Educator
DX: E10.29 Type 1 diabetes mellitus with other diabetic kidney complication (principal)

== ENCOUNTER → 2023-09-13 14:22 | Outpatient (BNVA) | payer MEDICAID, SELFPAY | PROVIDERS: PCP Internal Medicine Geriatric Medicine; Visit Provider Registered Nurse Diabetes Educator | DX: E10.29 Type 1 diabetes mellitus with other diabetic kidney complication (principal); Z46.81 Encounter for fitting and adjustment of insulin pump; Z79.4 Long term (current) use of insulin | CPT/HCPCS: 99211 ==

== ENCOUNTER 2023-12-08 09:53 | Outpatient (AMB) | payer MEDICAID, SELFPAY ==
--- NOTE | 2023-12-08 09:33 | MHC.OFFVIS ---
Vital Signs 12/08/23 10:00 Height 5 ft 3 in Weight 209 lb 7.026 oz BMI 37.1 BP 124/68 Blood Pressure Location Rt brachial Position Sitting Pulse 88 Pulse Source Pulse Oximeter Intake Visit Reasons: DM1/CONFIRMED Intake Note: Patient present today to follow up on Type 1 Diabetes Mellitus. Patient receives DME supplies through: [facility] Patient receives pump supplies through: Pharmacy Last Diabetic Eye exam: 06/04/2023 Last Podiatry Visit: Does not see a Dental Laboratory Technology Teacher Random Glucose: 181 mg/dl HgA1C: 7.1% 12/08/2023 Cover Seamer Required: Yes Cover Seamer Language: Camera Person Services: Cover Seamer Present Cover Seamer Name: Dimitry CMCate Information Interpreted: non-clinical & clinical Accompanied by: Daughter Allergies No Known Allergies [No Known Allergies*] Allergy (Verified 12/08/23 10:00) HPI Comments Details: Patient is 57 yo female with DM type 1 diagnosed at age 27 who presents for visit for continued diabetes management. She was last seen by CDE 09/13/23 and by myself 09/07/23 A1C 7.1% 12/08/23, A1C 09/07/23 6.9% Diabetes medications: Novolog via Omnipod Classic pump with Dexcom G6. Dexcom average glucose: 160 14 day continuous glucose monitor report reviewed Good morning who are you think she is just finishing not been there do want to take down the name in stats Christina of fab Priyank Farhat [phone] TIme in ranges: 3% very high (above 250) 26% high ?(181-250) 71 % in range ?(70-180] 0 % low (69-55) 0 % ?very low (below 54) 54 Standard Deviation Interpretation Basal rate(s) (units/hour) : 12 AM to 7 AM 2.3 units / hr 7 AM? to 6 PM? 1.8 units / hr 6 PM? to 8 PM? 1.9 units / hr 8 PM? to 12 AM? 1.8 units / hr Bolus setting Insulin Carbohydrate Ratio (s) 12 AM? to 12 PM? 1:7.5 12 PM to 5 PM? 1:7 5 PM to 12 AM 1:6.5 Correction Factor / Sensitivity Factor 12 AM? to 12 PM? 1:30 12 PM? to 8 PM? 1:32 8 PM to 12 AM ? 1:32 Active Insulin Time:? 4 hours Target(s): 12 AM? to 12 AM? 120 Correction threshold: 12 AM? to 12 AM? 120 9 eGFR>60 on low dose MARIAH inhibitor Has HLD on statin Last LDL 05/07/23 65 Denies CAD advised to carry sugar source . [facility] Medical History Kinsey's palsy Hypertension Cerebral palsy Depression Insomnia Proteinuria Type 1 diabetes mellitus with other diabetic kidney complication Hyperlipidemia, unspecified Surgical History H/O colonoscopy Hx of section History of appendectomy Family History Father Lung cancer Mother Colon cancer Diabetes HTN (hypertension) CVD (cardiovascular disease) Social History Household Members: Family and Children Household Members Other:: grandchidren Alcohol intake: never Patient Tobacco Use Status: Never used Tobacco Physical Exam Vital Signs: Last Vital Signs Pulse 88 12/08/23 10:00 BP 124/68 12/08/23 10:00 BMI result Body Mass Index 37.1 Const Other: Absence of Cushingoid features. Absence of acromegalic features. Neck exam reveals nl size thyroid about 15 gms. No thyroid nodules palpable. No carotid bruits present. Lungs CTA. Heart S1 S2, Reg R/R. No M/R G. Skin exam reveals absence of vitiligo or acanthosis nigricans. No edema Results AMB Hemoglobin A1c AMB Hemoglobin A1c 7.1 % Last Edit by IVETH Jarvis on 12/08/23 10:13 Results Reviewed Results Reviewed: Laboratory Last Values Glucose (Clinic) 181 mg/dL (60-115) H 12/08/23 10:05 Hgb A1c (Clinic) 7.1 % (4.0-6.0) H 12/08/23 10:09 Assessment & Plan Assessment & Plan (1) Type 1 diabetes mellitus with other diabetic kidney complication: Code(s): E10.29 - Type 1 diabetes mellitus with other diabetic kidney complication Category: Medical Plan: 57-year-old type 1 diabetic with nephropathy, retinopathy and neuropathy on an Omnipod insulin pump presents with A1c of 7.1%. Patient encouraged to bolus 15 min before meal The patient had an opportunity to ask questions regarding treatment plan. The patient expressed understanding and agreement with the above treatment plan. The patient is aware they should contact our office by phone for worsening glucose readings or for any low blood sugars which may warrant a change in diabetes medication. Compliance is encouraged with medications and any followup testing/consults which may have been ordered. Orders: Orders AMB Hemoglobin A1c 12/08/23 E10.29 - Type 1 diabetes mellitus with other diabetic kidney complication Patient Instructions: Symptoms of DKA (diabetic ketoacidosis): early: frequent urination, dry mouth, fatigue, feeling ill, severe symptoms: ketones in the urine, abdominal pain, nausea, vomiting and weakness. It is important to hydrate with sugar free liquids every 15-30 minutes and bring the sugars down to normal levels. If you are moderate or severe with ketones or unable to bring glucose to less than 200, go to the emergency room. Troubleshooting after starting new pod or inserting new insulin set: Occlusion, adhesive tape sensitivity, redness Check BG 2 hours after site change Safety information: Importance of a backup plan, for manual injections, proper prescriptions and emergency supplies ketone strips, and rules for testing for ketones The patient was counseled to always carry a source of sugar and on the rule of 15's: Take 3 glucose tablets and repeat again in 15 minutes if blood sugar is not in normal range. Continue to repeat every 15 minutes until blood sugar is normal. Wear closed toe shoes, never walk barefooted and inspect the feet daily. For any signs of infection or open wound patient you should notify your PCP or go to urgent care/ER. Coding Level of Care Code Est Pt Level 4 (06494) Complex EM visit Add On G2211 Diagnoses Type 1 diabetes mellitus with other diabetic kidney complication E10.29 Time Spent (min) 45 Comment Reviewing labs/provider notes, glucose sensor/pump reports, face to face, chart doc
[2023-12-08 10:00] VITALS: BP 124/68; PULSE 88; BMI 37.1
[2023-12-08 10:09] LABS: Glucose, Whole Blood 181 mg/dL (60-115)
== END 2023-12-08 10:24 | disposition home or self-care (01) ==
LOC: HO.ENCR 09:54
PROVIDERS: PCP Internal Medicine Geriatric Medicine; Visit Provider Nurse Practitioner Adult Health
DX: E10.29 Type 1 diabetes mellitus with other diabetic kidney complication (principal)
CPT/HCPCS: 99214

== ENCOUNTER → 2023-12-08 09:53 | Outpatient (BNVA) | payer MEDICAID, SELFPAY | PROVIDERS: PCP Internal Medicine Geriatric Medicine; Visit Provider Nurse Practitioner Adult Health | DX: Z46.81 Encounter for fitting and adjustment of insulin pump (principal); E10.29 Type 1 diabetes mellitus with other diabetic kidney complication | CPT/HCPCS: 82947; 83036; 99212 ==

== ENCOUNTER 2024-01-13 12:54 | Outpatient (AMB) | payer MEDICAID, SELFPAY ==
--- NOTE | 2024-01-13 13:09 | MHC.AMDMED ---
Intake Intake Visit Reasons: 60 min-confirmed Hatchery Attendant Required: Yes Hatchery Attendant Language: Recruiting Scheduler Name: Pranav [id number] Accompanied by: Daughter Allergies No Known Allergies [No Known Allergies*] Allergy (Verified 12/08/23 10:00) HPI Comprehensive Diabetes Asmnt Most Recent Diabetes Results: Microalb/Creat Ratio 25.7 ug/mg cr (<30) 05/07/23 Cholesterol 122 mg/dL (<200) 05/07/23 HDL Cholesterol 46 mg/dL (>40) 05/07/23 Triglycerides 58 mg/dL (<150) 05/07/23 Creatinine 0.76 mg/dL (0.5-1.4) 05/07/23 Blood Urea Nitrogen 11 mg/dL (9-16) 05/07/23 Sodium 142 mmol/L (135-145) 05/07/23 Potassium 3.3 mmol/L (3.3-5.1) 05/07/23 Chloride 109 mmol/L (96-108) H 05/07/23 Carbon Dioxide 26 mmol/L (22-29) 05/07/23 Calcium 9.2 mg/dL (8.4-10.2) 05/07/23 AST 18 U/L (5-31) 02/13/22 ALT 14 U/L (0-31) 02/13/22 Total Protein 7.6 g/dL (6.5-8.0) 02/13/22 Albumin 3.9 g/dL (3.5-5.0) 02/13/22 [facility] Medical History Kinsey's palsy Hypertension Cerebral palsy Depression Insomnia Proteinuria Type 1 diabetes mellitus with other diabetic kidney complication Hyperlipidemia, unspecified Surgical History H/O colonoscopy Hx of section History of appendectomy Family History Father Lung cancer Mother Colon cancer Diabetes HTN (hypertension) CVD (cardiovascular disease) Social History Household Members: Family and Children Household Members Other:: grandchidren Alcohol intake: never Patient Tobacco Use Status: Never used Tobacco Assessment & Plan Assessment & Plan (1) Type 1 diabetes mellitus with other diabetic kidney complication: Code(s): E10.29 - Type 1 diabetes mellitus with other diabetic kidney complication Plan: Patient presents for pump training for Omni pod 5 pump and CGM training today. The following topics were reviewed today: -Dexcom G6 sensor versus Dexcom G7 sensor -importance of bolusing 10-15 minutes prior to meals for best results ??? High Alert: 180 mg/dl ??? Low Alert: 70 mg/dl CGM Data: Patient's average glucose for the past 14 days 165 mg/dL Patient above target 34% Patient at target 66% Patient below target 0% Patient in auto mode 83% Manual mode 17% Basal insulin: 68% Bolus insulin: 32% Patient using average total daily dose of 67 units Patient's last A1c 11/28/2023 7.1% Reviewed the importance of accurately counting carbohydrates and bolusing for 10-15 minutes prior to meals for optimal glucose control Instructed patient to only use room temperature insulin, how to load cartridge or fill pod, with insulin. Fill tubing and cannula (if applicable) Patient reports she has picked up ketone strips, and understands off pump insulin plan Suggested to patient if she receives Omnipod 5 pods compatible with Dexcom G7 we can set up appointment to transition to new upgraded sensor Troubleshooting after starting new pod or inserting new insulin set: Occlusion, adhesive tape sensitivity, redness Check BG 2 hours after site change Safety information: Importance of a backup plan, for manual injections, proper prescriptions and emergency supplies ketone strips, and rules for testing for ketones Patient was able to insert insulin set today without difficulty. Patient understands the basic concepts of pump therapy, how to give insulin for meals and snacks, how to troubleshoot for hyper and hypoglycemia. Setting verified by [facility], see changes made to patient's insulin pump settings at today's Basal rate(s) (units/hour) : 12 AM to 7 AM 1.8 units / hr 7 AM? to 6 PM? 1.8 units / hr 6 PM? to 8 PM? 1.9 units / hr 8 PM? to 12 AM? 1.8 units / hr Bolus setting Insulin Carbohydrate Ratio (s) 12 AM? to 12 PM? 1:7.5 12 PM to 5 PM? 1:7 5 PM to 12 AM 1:6 Correction Factor / Sensitivity Factor 12 AM? to 12 PM? 1:30 12 PM? to 8 PM? 1:35 New 12 PM? to 8 PM? 1:30 8 PM to 12 AM ? 1:32 Active Insulin Time:? 4 hours Target(s): 12 AM? to 12 AM? 110 Correction threshold: New 12 AM? to 12 AM? 110 Patient will follow up with [facility] as instructed Patient will contact [facility] with questions or concerns, patient given IT number to support in any technical issues related to insulin pump Patient Instructions: Comun?quese con un educador en diabetes si aumentan los episodios de hipoglucemia. Seguimiento con educador en diabetes en 3 meses. Coding Level of Care Code Est Pt Level 1 (56173) Diagnoses Type 1 diabetes mellitus with other diabetic kidney complication E10.29
== END 2024-01-13 13:24 | disposition home or self-care (01) ==
PROVIDERS: PCP Internal Medicine Geriatric Medicine; Visit Provider Registered Nurse Diabetes Educator
DX: E10.29 Type 1 diabetes mellitus with other diabetic kidney complication (principal)

== ENCOUNTER → 2024-01-13 12:54 | Outpatient (BNVA) | payer MEDICAID, SELFPAY | PROVIDERS: PCP Internal Medicine Geriatric Medicine; Visit Provider Registered Nurse Diabetes Educator | DX: E10.29 Type 1 diabetes mellitus with other diabetic kidney complication (principal); Z96.41 Presence of insulin pump (external) (internal); Z79.4 Long term (current) use of insulin | CPT/HCPCS: 99211 ==

== ENCOUNTER 2024-03-08 10:47 | Outpatient (REF) | payer MEDICAID, SELFPAY ==
--- NOTE | ~2024-03-08 | XR_ITS ---
EXAMINATION: XR CHEST CLINICAL INFORMATION: 2 months of dry cough COMPARISON: 04/14/2019. TECHNIQUE: 2 views of the chest were obtained. FINDINGS: The cardiac, hilar, and mediastinal contours are normal. Lungs demonstrate minor atelectasis or scarring in the lingula. Lungs otherwise clear. There is no pneumothorax or pleural effusion. There is no focal osseous or soft tissue abnormality. XR/XR chest 2V IMPRESSION: No active pulmonary disease. Electronically signed by: Jose A Anderson MD 03/08/2024 11:20 AM [facility]
--- OUTSIDE RECORDS SUMMARY | 2024-03-08 12:54 | XMS_ITS | Encounter Summary ---
Author Organization [employer] [facility] Address [address] [place] [address] Care Team Providers Care Slate Cutter Name Role Phone Name, Sam LOPEZ Primary Care Provider [phone] Encounter Details Date Type Department Care Team (Late Contact Info) Description 07/30/2022 Abstract [facility] [address] [place] [id number] Name, MD Sam [address] [place] [id number] Social History Tobacco Use Types Packs/Day Years Used Date Smoking Tobacco: Never Smokeless Tobacco: Never Alcohol Use Standard Drinks/Week Comments Never 0 (1 standard drink = 0.6 oz pur e alcohol) Depression Answer Date Recorded Patient Health Questionnaire-9 Score 0 02/24/2022 Depression Answer Date Recorded Patient Health Questionnaire-2 Score 0 02/24/2022 Comments Unknown Sex and Gender Information Value Date Recorded Sex Assigned at Female 12/08/2021 10:16 AM EDT Legal Sex Female 10:16 AM EDT Gender Identity Female 12/08/2021 10:16 AM EDT Sexual Orientation Straight 12/08/2021 10 :16 AM EDT COVID-19 Exposure Response Date Recorded In the last 10 days, have yo u been in contact with someone who was confirmed or suspected to have Coronavirus/COVID-19? No / Unsure 07/07/2022 10:52 AM EDT documented as of this encounter Plan of Treatment Upcoming Encounters Date Type Department Care Team (Late Contact Info) Description 03/22/2024 10:00 AM EST Telemedicine [facility] [address] [place] [address] [phone] documented as of this encounter Procedures Procedure Name Priority Date/Time Associated Diagnosis Comments MAMMOGRAPHY Routine 06/23/2022 1:53 PM EDT documented in this encounter Results * Mammography (06/23/2022 1:53 PM EDT) Mammogram Birads-2 Anatomical Region Laterality Modality Other Narrative 06/23/2022 1:53 PM EDT Recommended routine annual screening Historical Provider HEALTH MAINTENANCE Final Result documented in this encounter Visit Diagnoses Not on filedocumented in this encounter Additional Health Concerns Assessment Noted Time PHQ-9 Depression Total Score: 0 02/24/19 23 1:36 PM EST documented as of this encounter Care Teams Slate Cutter Relationship Specialty Start Date End Date Name, MD Sam [address] [place] [id number] PCP - General Family Medicine 05/15/15 documented as of this encounter
--- OUTSIDE RECORDS SUMMARY | 2024-03-08 12:54 | XMS_ITS | Encounter Summary ---
Author Organization [facility] Address [address] [place] [address] Care Team Providers Care Recovery Operator Name Role Phone Name, Sam LOPEZ Primary Care Provider [phone] Reason for Visit * Reason Comments Diabetes Hypertension Encounter Details Date Type Department Care Team ([facility] Contact Info) Description 03/08/2024 10:00 AM EST Office Visit [facility] [address], [place] [id number] Name, MD Sam [address] [place] [address] Subacute cough (Primary Dx); Essential hypertension; Type 1 diabetes mellitus with other specified complication (CMS/HCC) Social History Tobacco Use Types Packs/Day Years Used Date Smoking Tobacco: Never Smokeless Tobacco: Never Tobacco Cessation:Counseling Given: Not Answered Alcohol Use Standard Drinks/Week Comments Never 0 (1 standard drink = 0.6 oz pur e alcohol) Depression Answer Date Recorded Patient Health Questionnaire-9 Score 1 03/31/2023 Patient Health Questionnaire-9 Score 1 03/31/2023 Last PHQ-9: Questionnaire Data Not on file 0 03/31/2023 Housing Stability Answer Date Recorded What is your housing situation today? I have etta tang 03/31/[address] you li ve. Do you have problems with any of the following? None of the above 03/31/2023 Food Insecurity Answer Date Recorded Within the past 12 months, y ou worried that your food would run out before you got money to buy more: Never True 03/31/2023 Within the past 12 months,th e food you bought just didn't last and you didn't have enough money to get more: Never True Transportation Answer Date Recorded In the past 12 months, has l ack of transportation kept you from medical appts, meetings, work or from getting things needed for daily living? No 03/31/2023 Utilities Answer Date Recorded In the past 12 months, has t he electric, gas, oil or water company threatened to shut off services in your home? No 03/31/2023 Depression Answer Date Recorded Patient Health Questionnaire-2 Score 0 03/31/2023 Internet Access Answer Date Recorded Internet Access Q1 Yes 03/01/2024 Internet Access Q2 Not on file 03/01/2024 Comments Unknown Sex and Gender Information Value Date Recorded Sex Assigned at Female 12/08/2021 10:16 AM EDT Legal Sex Female 10:16 AM EDT Gender Identity Female 12/08/2021 10:16 AM EDT Sexual Orientation Straight 12/08/2021 10 :16 AM EDT documented as of this encounter Last Filed Vital Signs Vital Sign Reading Time Taken Comments Blood Pressure 161/78 03/08/2024 9:55 AM EST Pulse 90 03/08/2024 9:55 AM EST Temperature 36.9 ??C (98.4 ??F) 03/08/2024 9:55 AM ES T Respiratory Rate 14 03/08/2024 9:55 AM EST Oxygen Saturation 98% 03/08/2024 9:55 AM EST Inhaled Oxygen Concentration - - Weight 93.2 kg (205 lb 6.4 oz) 03/08/2024 9:55 A M EST Height 162.6 cm (5' 4 ) 03/08/2024 9:55 AM EST Body Mass Index 35.26 03/08/2024 9:55 AM EST documented in this encounter Progress Notes * Sam Gleason MD - 03/08/2024 10:00 AM EST Subjective Patient ID: Christina Dougherty is a 58 y.o. female who presents for Diabetes and Hypertension. Patient comes for a follow-up visit. She is complaining of 2 months of nonproductive cough that is worse in the mornings. She does not have a history of asthma. She denies any wheezing or shortness of breath. She is treated with low-dose lisinopril. Her blood pressure is elevated today. She denies any history of asthma as a child. She is familiar with the use of albuterol because her children have asthma. Review of Systems Constitutional: Negative for chills and fever. HENT: Negative for sore throat. Respiratory: Positive for cough. Negative for shortness of breath and wheezing. Cardiovascular: Negative for chest pain, palpitations and leg swelling. Gastrointestinal: Negative for abdominal pain. Skin: Negative for rash. Visit Vitals BP (!) 161/78 (BP Location: Left arm, Patient Position: Sitting, BP Cuff Size: Large adult) Pulse 90 Temp 98.4 ??F (36.9 ??C) (Temporal) Resp 14 Ht 5' 4 (1.626 m) Wt 205 lb 6.4 oz (93.2 kg) SpO2 98% BMI 35.26 kg/m?? Smoking Status Never BSA 2.05 m?? Objective Physical Exam Constitutional: Appearance: Normal appearance. Cardiovascular: Rate and Rhythm: Normal rate and regular rhythm. Pulses: Dorsalis pedis pulses are 1+ on the right side and 1+ on the left side. Posterior tibial pulses are 1+ on the right side and 1+ on the left side. Heart sounds: No murmur heard. No gallop. Pulmonary: Effort: Pulmonary effort is normal. No respiratory distress. Breath sounds: Normal breath sounds. No wheezing. Musculoskeletal: Right lower leg: No edema. Left lower leg: No edema. Right foot: Normal range of motion. Left foot: Normal range of motion. Feet: Right foot: Protective Sensation: 5 sites tested. 5 sites sensed. Skin integrity: No ulcer. Toenail Condition: Right toenails are normal. Left foot: Protective Sensation: 5 sites tested. 5 sites sensed. Skin integrity: No ulcer. Toenail Condition: Left toenails are normal. Neurological: Mental Status: She is alert. Assessment/Plan Diagnoses and all orders for this visit: Subacute cough Comments: I recommended evaluation with chest x-ray, trial of albuterol, discontinue MARIAH inhibitor Orders: - XR Chest 2 Views; Future Essential hypertension Comments: BP elevated today. Discontinue MARIAH inhibitor. Start losartan instead. Check BP at home. Televisit in 2 weeks with team nurse. Orders: - Basic Metabolic Panel; Future Type 1 diabetes mellitus with other specified complication ([facility]) Comments: Continue current medications as per [facility] Endo. Avoid sweets. Flu vaccine today. Orders: - POCT Glucose - POCT HGB A1C Other orders - losartan (Cozaar) 50 MG tablet; Take 1 tablet (50 mg) by mouth Once per day. - albuterol 108 (90 Base) MCG/ACT inhaler; Inhale 2 puffs every 6 (six) hours if needed for wheezing. - Flu vaccine greater than or equal to 6 months old, preservative free IM documented in this encounter Plan of Treatment Upcoming Encounters Date Type Department Care Team (Late st Contact Info) Description 03/22/2024 10:00 AM EST Telemedicine [facility] [address] [place] [address] Scheduled Orders Name Type Priority Associated Diagnoses Orde r Schedule Basic Metabolic Panel Lab Routine Essential hypertension Expected: 03/08/2024 (Approximate), Expires: 03/08/2025 documented as of this encounter Procedures Procedure Name Priority Date/Time Associated Diagnosis Comments XR CHEST 2 VIEWS Routine 03/08/2024 10:4 8 AM EST Subacute cough POCT GLYCATED HEMOGLOBIN, TOTAL Routine 03/08/2024 9:58 AM EST Type 1 diabetes mellitus with other specified complication (CMS/HCC) POCT GLUCOSE Routine 03/08/2024 9:57 AM EST Type 1 diabetes mellitus with other specified complication (CMS/HCC) documented in this encounter Results * XR Chest 2 Views (03/08/2024 10:48 AM EST) Anatomical Region Laterality Modality Chest Radiographic Debi ging 03/08/2024 10:4 8 AM EST Narrative 03/08/2024 11:22 AM EST ?[facility] ?[address] ?[place] [address] ?XRay Report ? Signed ? Patient: Nikolai Dougherty,Christina M ?MR ?? #: [id number] ? : 1965 ?Acct:[id number] ? Age/Sex: 58 / F ?ADM Date: /29/25 ? Loc: HO.HHCX ? Attending Dr: Sam Gleason MD ? Ordering Physician: Rosibel,Sam LOPEZ ?? Date of Service: 03/08/24 ?? Procedure(s): XR chest 2V ?? Accession Number(s): [id number] ? cc: Name,Sam LOPEZ ? EXAMINATION: ?? XR CHEST ? CLINICAL INFORMATION: ?? 2 months of dry cough ? COMPARISON: ?? 04/14/2019. ? TECHNIQUE: ?? 2 views of the chest were obtained. ? FINDINGS: ?? The cardiac, hilar, and mediastinal contours are normal. ? Lungs demonstrate minor atelectasis or scarring in the lingula. Lungs ?? otherwise clear. ?? There is no pneumothorax or pleural effusion. ? There is no focal osseous or soft tissue abnormality. ? XR/XR chest 2V ?? IMPRESSION: ?? No active pulmonary disease. ? Electronically signed by: ??Jose A Anderson MD ??03/08/2024 11:20 AM EST RP ? Dictated By: ?Jose A Anderson MD ? Signed By: ?<Electronically signed by Jose A Anderson MD in OV> ?03/08/24 1120 ? DD/ 1048 ? TD/TT: 03/08/24 1100 ? Beaming Machine Operator: ? Procedure Note Errol, Feliz - 03/08/[address] [address] XRay Report Signed Patient: Christina Cohen MMR #: [id number] : 1965Acct:[id number] Age/Sex: 58 / FADM Date: 03/08/24 Loc: HO.HHCX Attending Dr: Sam Gleason MD Ordering Physician: Sam Gleason MD Date of Service: 03/08/24 Procedure(s): XR chest 2V Accession Number(s): [id number] cc: Sam Gleason MD EXAMINATION: XR CHEST CLINICAL INFORMATION: 2 months of dry cough COMPARISON: 04/14/2019. TECHNIQUE: 2 views of the chest were obtained. FINDINGS: The cardiac, hilar, and mediastinal contours are normal. Lungs demonstrate minor atelectasis or scarring in the lingula. Lungs otherwise clear. There is no pneumothorax or pleural effusion. There is no focal osseous or soft tissue abnormality. XR/XR chest 2V IMPRESSION: No active pulmonary disease. Electronically signed by: Jose A Anderson MD 03/08/2024 11:20 AM EST Dictated By: Jose A Anderson MD Signed By: <Electronically signed by Jose A Anderson MD in OV> 03/08/24 1120 DD/ 1048 TD/TT: 03/08/24 1100 Beaming Machine Operator: Sam Gleason MD IMG XR PROCEDURES Edited Result - Final * (ABNORMAL) POCT HGB A1C (03/08/2024 9:58 AM EST) Hemoglobin A1C 7.1(A) 4.0 - 6.0 % QC Media Lot # [id number] Lot# Expiration Date 71,626 Blood 03/08/2024 9:58 AM EST Sam Gleason MD POINT OF CARE TEST ENTER/EDIT OR DERABLES Final Result * POCT Glucose (03/08/2024 9:57 AM EST) Glucose Blood, POC 118 60 - 200 mg/dL QC Media Lot # [id number] Lot# Expiration Date 53,025 Blood Capillary blood specimen / Unknown 03/08/2024 9:57 AM EST Sam Gleason MD POINT OF CARE TEST ENTER/EDIT OR DERABLES Final Result documented in this encounter Visit Diagnoses Diagnosis Subacute cough- Primary Essential hypertension Unspecified essential hypertension Type 1 diabetes mellitus with other specified complication (CMS/HCC) documented in this encounter Additional Health Concerns Assessment Noted Time PHQ-9 Depression Total Score: 1 03/31/19 24 9:26 AM EST documented as of this encounter Care Teams Recovery Operator Relationship Specialty Start Date End Date Name, MD Sam [address] [place] [address] PCP - General Family Medicine 05/15/15 documented as of this encounter
--- OUTSIDE RECORDS SUMMARY | 2024-03-08 12:54 | XMS_ITS | Encounter Summary ---
Author Organization [facility] Address [address] [facility] [address] [place] [address] Care Team Providers Care Sr. Merchandise Planner Name Role Phone Name, Sam LOPEZ Primary Care Provider [phone] Reason for Visit * Reason Comments Med Refill Encounter Details Date Type Department Care Team ([facility] Contact Info) Description 01/04/2023 Refill [facility] [address] [place], [place] [phone] Name, MD Sam [address] [place] [address] Social History Tobacco Use Types Packs/Day Years Used Date Smoking Tobacco: Never Smokeless Tobacco: Never Alcohol Use Standard Drinks/Week Comments Never 0 (1 standard drink = 0.6 oz pur e alcohol) Depression Answer Date Recorded Patient Health Questionnaire-9 Score 0 02/24/2022 Housing Stability Answer Date Recorded What is your housing situation today? I have ettaxiomara tang 11/25/[address] you li ve. Do you have problems with any of the following? None of the above 11/25/2022 Food Insecurity Answer Date Recorded Within the past 12 months, y ou worried that your food would run out before you got money to buy more: Never True 11/25/2022 Within the past 12 months,th e food you bought just didn't last and you didn't have enough money to get more: Never True Transportation Answer Date Recorded In the past 12 months, has l ack of transportation kept you from medical appts, meetings, work or from getting things needed for daily living? No 11/25/2022 Utilities Answer Date Recorded In the past 12 months, has t he electric, gas, oil or water company threatened to shut off services in your home? No 11/25/2022 Depression Answer Date Recorded Patient Health Questionnaire-2 [...] Info) Description 03/22/2024 10:00 AM EST Telemedicine [facility] [address] [place] [address] documented as of this encounter Visit Diagnoses Not on filedocumented in this encounter Additional Health Concerns Assessment Noted Time PHQ-9 Depression Total Score: 0 02/24/19 23 1:36 PM EST documented as of this encounter Care Teams Sr. Merchandise Planner Relationship Specialty Start Date End Date Name, MD Sam [address] [place] [address] PCP - General Family Medicine 05/15/15 documented as of this encounter
--- OUTSIDE RECORDS SUMMARY | 2024-03-08 12:54 | XMS_ITS | Clinical Summary ---
Author Organization [employer] Address [address] [facility] [address] [place] [address] Care Team Providers Care Manipulative Therapy Specialist Name Role Phone Name, Sam LOPEZ Primary Care Provider [phone] Allergies No known active allergies Medications atorvastatin (Lipitor) 80 MG tablet Take 80 mg by mouth in the morning. 02/03/20 Active buPROPion SR (Wellbutrin SR) 200 MG 12 hr tablet TAKE 1 TABLET BY MOUTH TWICE A DAY 2ND DOSE NO LATER THAN 2PM 12/09/19 22 Active clonazePAM (KlonoPIN) 0.5 MG tablet TAKE 1 TABLET BY MOUTH ONCE A DAY NEEDED FOR PANIC ATTACK. UP TO 7 TIMES A MONTH. 01/21/20 22 Active QUEtiapine XR (SEROquel XR) 150 MG 24 hr tablet Take 150 mg by mouth at bedtime. 01/24/20 22 Active prazosin (Minipress) 2 MG capsule TAKE 1 CAPSULE BY MOUTH AT BEDTIME WITH 1 MG CAPSULE FOR TOTAL DOSE = 3 MG. 02/13/19 23 Active sertraline (Zoloft) 100 MG tablet Take 200 mg by mouth in the morning. 02/03/20 22 Active BD Veo Insulin Syringe U/F 31G X 15/64 0.3 ML misc DIRECTED FOUR TIMES A DAY 08/24/19 22 Active Insulin Aspart 100 UNIT/ML solution INJECT 75 UNITS SUBCUTANEOUSLY EVERY DAY 01/29/20 22 Active Lantus SoloStar 100 UNIT/ML pen INJECT 38 UNIT (0.38 ML) SUBCUTANEOUSLY EVERY EVENING 11/24/19 22 Active glucose blood (FREESTYLE LITE) test strip apply 1 by to skin route 4 times every day as directed 07/04/19 22 Active Baqsimi Two Pack 3 MG/DOSE nasal powder 3 mg (one actuation) into a single nostril as needed for BS below 70; if no response, may repeat in 15 minutes using a new intranasal device. 1 each 1 07/08/19 23 Active FREESTYLE LITE test stripIndications :Type 1 diabetes mellitus with other specified complication ([facility]) USE DIRECTED TO CHECK BLOOD SUGAR 4 TIMES A DAY 150 strip 03/08/19 24 Active loratadine (Claritin) 10 MG tabletIndication s:Cough, unspecified type,Allergic cough,Allergic reaction, initial encounter Take one tablet every 12 hrs for 3 days then one tablet daily 30 tablet 1 11/15/19 24 Active fluticasone (Flonase) 50 MCG/ACT nasal spray USE 2 SPRAYS IN EACH NOSTRIL IN THE MORNING. SHAKE GENTLY & PRIME BEFORE USE&CLEAN TIP/REPLACE CAP 48 mL 01/10/20 24 Active losartan (Cozaar) 50 MG tablet Take 1 tablet (50 mg) by mouth Once per day. 30 tablet 03/08/19 25 026 Active albuterol 108 (90 Base) MCG/ACT inhaler Inhale 2 puffs every 6 (six) hours if needed for wheezing. 18 g 03/08/19 25 026 Active lisinopril 5 MG tablet Take 1 tablet (5 mg) by mouth in the morning. 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 Continue with same medication for now, log BP and f/u with PCP Diabetic polyneuropathy 09/27/2015 Uterine leiomyoma 09/05/2015 Type 1 diabetes mellitus 01/21/2015 PVCs (premature ventricular contractions) 2012 Depressive disorder 07/13/2004 Encounters Date Type Department Care Team Description 03/08/2024 10:00 AM EST Office Visit [facility] [address] [place] [phone] Sam Gleason MD Subacute cough (Primary Dx); Essential hypertension; Type 1 diabetes mellitus with other specified complication ([facility]) 03/01/2024 Patient Outreach [facility] [address] [place] [address] NameSam MD Pre-visit Planning (SDOH negative, Tobacco screening negative. ) 01/08/2024 Refill [facility] [address] [place] [address] Sam Gleason MD 12/08/2023 Orders Only GENERIC EXTERNAL DATA DEPARTMENT Provider, Generic External Data from Last 3 Months Immunizations Name Administration Dates Next Due Hep A, Adult 11/18/2010,11/01/2003 Hep B, adult 11/18/2010,01/23/2004,12/17/2003 Influenza injectable quadriv alent IIV4 with preservative 01/13/2019,12/22/2017,12/23/2016,12/29,10/29/2014 Influenza injectable quadriv alent preservative free 10/23/2022,10/20/2021,11/17/2019 Influenza, IIV3, injectable 12/01/2013, 8 Influenza, Split (incl. aditya fied surface antigen) 11/30/2012,03/07/2012 Influenza, seasonal, injecta ble, preservative free 03/08/2024 MMR 03/19/2011 Moderna Covid-19 Vaccine 6+ Bivalent 02/13/2022 Pneumococcal Conjugate PCV 20 12/04/2022 Pneumococcal Polysaccharide PPSV23 11/01/2003 TD (adult), 2 Lf tetanus tox oid, preservative free, adsorbed 11/18/2010,12/17/2003 Tdap 12/04/2022,03/07/2012 Social History Tobacco Use Types Packs/Day Years [...] Orientation Straight 12/08/2021 10 :16 AM EDT Last Filed Vital Signs Vital Sign Reading [...] Mass Index 35.26 03/08/2024 9:55 AM EST Plan of Treatment Upcoming Encounters Date Type Department Care Team (Late st Contact Info) Description 03/22/2024 10:00 AM EST Telemedicine [facility] [address] [place] [address] Health Maintenance Due Date Last Done Comments CT Colonography 1965 FIT DNA/Cologuard 1965 FIT 1965 FOBT 1965 HIV Screening 1965 Sigmoidoscopy 1965 Zoster Vaccines (1 of 2) 12/15/2017 COVID-19 Vaccine ( season) 2023 02/13/2022, 08/01/2021, 03/04/2021, Additional history exists Depression Screening 03/31/2024 03/31/2023, 03/31/19 24 Diabetes: Urine Protein Screening 05/06/2024 05/07/2023, 02/13/2022, 04/12/2020, Additional history exists Lipid Panel 05/06/2024 05/07/2023, 07/2022, 02/13/2022, Additional history exists Diabetes: Hemoglobin A1C 06/06/2024 025, 06/11/2023, 03/31/2023, Additional history exists Eye Exam 07/12/2024 07/13/2023, 06/04/2023 Mammogram 07/13/2024 07/14/2023, 06/08, 06/23/2022, Additional history exists SDOH Screening 03/01/2025 03/01/2024 Alcohol/Substance Use Screening 03/08/2025 03/08/2024 Diabetes: Foot Exam 03/08/2025 03/08/2024, 03/08/2024, 03/08/2024, Additional history exists Tobacco Screening 03/08/2025 03/08/2024 Cervical Cancer Screening 10/23/2025 Pap Smear 10/23/2025 10/23/2022, 10/03/2021 Colonoscopy 02/20/2027 02/20/2022 Colorectal Cancer Screening 02/20/2027 HPV/Cotest 10/24/2027 10/23/2022, 09/09, 10/03/2021, Additional history exists DTaP/Tdap/Td Vaccines (3 - Td or Tdap) 12/04/2032 12/04/2022, 03/07/2012, 11/18/2010, Additional history exists RSV Patients and Patients Aged 60 years or older (1 - 1-dose 75+ series) 12/15/2042 Hepatitis A Vaccines Aged Out 11/18/2010, 11/01/19 04 No longer eligible based on patient's age to complete this topic Hepatitis B Vaccines Completed 11/18/2010, 01/23/2004, 12/17/2003 Pneumococcal Vaccine: 50+ Years Completed 12/04/2022, 11/01/2003 Hepatitis C Screening Completed 05/07/2023 Influenza Vaccine Completed 03/08/2024, , 10/20/2021, Additional history exists HIB Vaccines Aged Out No longer eligi ble based on patient's age to complete this topic HPV Vaccines Aged Out No longer eligi ble based on patient's age to complete this topic IPV Vaccines Aged Out No longer eligi ble based on patient's age to complete this topic Meningococcal Vaccine Aged Out No tila alvell eligible based on patient's age to complete this topic RSV under 20 months Aged Out No longe r eligible based on patient's age to complete this topic Rotavirus Vaccines Aged Out No longer eligible based on patient's age to complete this topic Procedures Procedure Name Priority Date/Time Associated Diagnosis Comments XR CHEST 2 VIEWS Routine 03/08/2024 10:4 8 AM EST Subacute cough POCT GLYCATED HEMOGLOBIN, TOTAL Routine 03/08/2024 9:58 AM EST Type 1 diabetes mellitus with other specified complication (CMS/HCC) POCT GLUCOSE Routine 03/08/2024 9:57 AM EST Type 1 diabetes mellitus with other specified complication (CMS/HCC) GLUCOSE, WHOLE BLOOD Routine 12/08/2023 10:05 AM EDT BI MAMMOGRAM SCREENING TOMOSYNTHESIS BILATERAL Routine 07/14/2023 12:00 PM EDT HM DIABETES EYE EXAM Routine 07/13/2023 HEPATITIS C ANTIBODY Routine 05/07/2023 8:31 AM EDT Need for hepatitis C screening test LIPID PANEL, STANDARD Routine 05/07/2023 8:31 AM EDT ALBUMIN, RANDOM URINE W/CREATININE Routine 05/07/2023 8:30 AM EDT HPV MRNA E6/E7 REFLEX TO HPV 16, 18/45 Routine 10/23/2022 12:48 PM EDT PAP SMEAR Routine 10/23/2022 12:48 PM EDT HM COLONOSCOPY Routine 02/20/2022 from Last 3 Months or Most Recently Relevant to Health Maintenance Results * XR Chest 2 Views (03/08/2024 10:48 AM EST) Anatomical Region Laterality Modality Chest Radiographic Debi ging 03/08/2024 10:4 8 AM EST Narrative 03/08/2024 11:22 AM EST ?[facility] ?[address] ?[place] [address] ?XRay Report ? Signed ? Patient: Christina Cohen ?MR ?? #: [id number] ? : 1965 ?Acct:[id number] ? Age/Sex: 58 / F ?ADM Date: /29/25 ? Loc: HO.HHCX ? Attending : Sam Name MD ? Ordering Physician: Name,Sam MD ?? Date of Service: 03/08/24 ?? Procedure(s): XR chest 2V ?? Accession Number(s): [id number] ? cc: Sam Gleason MD ? EXAMINATION: ?? XR CHEST ? CLINICAL [...] disease. ? Electronically signed by: ??Jose A Anderosn MD ??03/08/2024 11:20 AM EST RP ? Dictated By: ?Jose A Anderson MD ? Signed By: ?<Electronically signed by Jose A Anderson MD in OV> ?03/08/24 1120 ? DD/ 1048 ? TD/TT: 03/08/24 1100 ? Net Making Supervisor: ? Procedure Note Donotuseinterpreter, Image - 03/08/2024 [place] [address] XRay Report Signed Patient: Christina Cohen MMR #: [id number] : 1965Acct:[id number] Age/Sex: 58 / FADM Date: 03/08/24 Loc: HO.HHCX Attending Dr: Sam Gleason MD Ordering Physician: Sam Gleason MD Date of Service: 03/08/24 Procedure(s): XR chest 2V Accession Number(s): [id number] cc: Sam Gleason MD EXAMINATION: XR CHEST [...] Jose A Anderson MD 03/08/2024 11:20 AM [facility] Dictated By: Jose A Anderson MD Signed By: <Electronically signed by Jose A Anderson MD in OV> 03/08/24 1120 DD/ 1048 TD/TT: 03/08/24 1100 Net Making Supervisor: Sam Gleason MD IMG XR PROCEDURES Edited Result - Final * (ABNORMAL) POCT HGB A1C (03/08/2024 9:58 AM EST) Hemoglobin A1C 7.1(A) 4.0 - 6.0 % QC Media Lot # [id number] Lot# Expiration Date 71,626 Blood 03/08/2024 9:5 8 AM EST Sam Gleason MD POINT OF CARE TEST ENTER/EDIT OR DERABLES Final Result * POCT Glucose (03/08/2024 9:57 AM EST) Glucose Blood, POC 118 60 - 200 mg/dL QC Media Lot # [id number] Lot# Expiration Date 53,025 Blood Capillary blood specimen / Unknown 03/08/2024 9:57 AM EST Sam Gleason MD POINT OF CARE TEST ENTER/EDIT OR DERABLES Final Result * (ABNORMAL) Glucose, Whole Blood (12/08/2023 10:05 AM EDT) Glucose, Whole Blood 181(H) 60 - 115 mg/dL [facility] Comment:METER #: [id number] Testing performed in the Endocrinology Department [address] , [address], [facility]. 12/08/2023 10:0 5 AM EDT 12/08/2023 10:09 AM EDT Generic External Data Provider LAB BLOOD ORDERAB LES Final Result [facility] [address] [place] [phone] * BI Mammogram Screening Tomosynthesis Bilateral (07/14/2023 12:00 PM EDT) Anatomical Region Laterality Modality Breast Bilateral Mammography 07/14/2023 12:0 0 PM EDT Narrative 08/10/2023 8:30 AM EDT ? [facility] ? [address] ?[place] [address] ? Mammography Report ? Signed ? Patient: Christina Cohen ?MR ?? #: [id number] ? : 1965 ?Acct:[id number] ? Age/Sex: 57 / F ?ADM Date: 07/14/23 ? Loc: HO.MAMMO ? Attending Dr: Sam Name MD ? Ordering Physician: Name,Sam LOPEZ ?Results: 2Benign Fi ?? ndings ? Date of Service: 07/14/23 ?Follow Up: 1 Year From Orig ?? inal Mammogram ? Procedure(s): MM tomosynthesis screening BI ?? Accession Number(s): [id number] ? cc: Name,Sam MD ? EXAMINATION: ?? MM SCREENING DIGITAL BREAST TOMOSYNTHESIS, BILATERAL ? CLINICAL INFORMATION: ? Screening. Asymptomatic. ? COMPARISON: ?? Mammography: This study is compared with prior exams dating back to ?? 2019. ? TECHNIQUE: ?? Digital breast tomosynthesis is performed in both the craniocaudal and ?? mediolateral oblique views along with computer-aided detection (CAD). ?? Synthesized 2D images are generated from the tomosynthesis. ? FINDINGS: ?? There are scattered areas of fibroglandular density (ACR BI-RADS breast ?? composition Category b). ? There are no significant masses, abnormal calcifications, or other ?? abnormalities. ? Few, bilateral, benign secretory calcifications are present in each ?? breast. ? MM/MM tomosynthesis screening BI ?? IMPRESSION: ?? No mammographic evidence of malignancy. ? ASSESSMENT: ? BI-RADS BI-RADS 2 - Benign Findings ? RECOMMENDATION: ?? Routine annual mammography screening. ? 1 year F/U ? This examination should not preclude the clinical evaluation of a ?? suspicious palpable abnormality. ? This patient's information was entered into a reminder system with a ?? target due date for their next mammogram. ? Dictated By: ?Adrienne Hoffman MD ? Signed By: ?<Electronically signed by Adrienne Hoffman MD in OV> ? 08/10/23825 ? DD/ 1200 ? TD/TT: ? Net Making Supervisor: ? Procedure Note Errol, Image - 08/10/2023 [facility] [address] [place] [address] Mammography Report Signed Patient: Christina Cohen MMR #: [id number] : 1965Acct:[id number] Age/Sex: 57 / FADM Date: 07/14/23 Loc: HO.DIONYO Attending Dr: Sam Gleason MD Ordering Physician: Sam Gleasonesults: 2Benign Fi ndings Date of Service: 07/14/23Follow Up: 1 Year From Orig inal Mammogram Procedure(s): MM tomosynthesis screening BI Accession Number(s): [id number] cc: Sam Gleason MD EXAMINATION: MM SCREENING DIGITAL BREAST TOMOSYNTHESIS, BILATERAL CLINICAL INFORMATION: Screening. Asymptomatic. COMPARISON: Mammography: This study is compared with prior exams dating back to 2019. TECHNIQUE: Digital breast tomosynthesis is performed in both the craniocaudal and mediolateral oblique views along with computer-aided detection (CAD). Synthesized 2D images are generated from the tomosynthesis. FINDINGS: There are scattered areas of fibroglandular density (ACR BI-RADS breast composition Category b). There are no significant masses, abnormal calcifications, or other abnormalities. Few, bilateral, benign secretory calcifications are present in each breast. MM/MM tomosynthesis screening BI IMPRESSION: No mammographic evidence of malignancy. ASSESSMENT: BI-RADS BI-RADS 2 - Benign Findings RECOMMENDATION: Routine annual mammography screening. 1 year F/U This examination should not preclude the clinical evaluation of a suspicious palpable abnormality. This patient's information was entered into a reminder system with a target due date for their next mammogram. Dictated By: Adrienne Hoffman MD Signed By: <Electronically signed by Adrienne Hoffman MD in OV> 08/10/23 0826 DD/ 1200 TD/TT: Net Making Supervisor: us Sam Gleason MD IMG BI PROCEDURES Edited Result - Final * Hm Diabetes Eye Exam (07/13/2023) Eye Exam Normal Normal us Sam Gleason MD HEALTH MAINTENANCE Final Result * Hepatitis C Ab (05/07/2023 8:31 AM EDT) Hepatitis C Antibody Nonreactive Nonreactive [facility] Comment:Antibodies to HCV no t detected; does not exclude early acuteHCV infection. Blood Venous blood specimen / Unknown 05/07/2023 8:31 AM EDT 05/07/2023 8:31 AM EDT us Sam Gleason MD LAB BLOOD ORDERABLES Final Resul t [facility] [address] [place] [phone] [phone] * Lipid Panel, Standard (05/07/2023 8:31 AM EDT) Triglycerides 58 <150 mg/dL [facility] Comment:Desirable Triglyceri de: less than 150 mg/dLBorderline High Triglyceride 150-199 mg/dLHigh Triglyceride: 200-499 mg/dLVery High Triglyceride: greater than or equal to 5OO mg/dL Cholesterol 122 <200 mg/dL [facility] Comment:Desirable Cholestero l: less than 200 mg/dLBorderline High Cholesterol: 200-239 mg/dLHigh Cholesterol: greater than 239 mg/dL LDL Cholesterol Calculated 65 <100 mg/dL [facility] Comment:Desirable LDL: less than 100 mg/dLNear Optimal/Above Optimal LDL: 110- 129 mg/dLBorderline High LDL: 130-159 mg/dLHigh LDL: 160-189 mg/dLVery High LDL: greater than or equal to 190 mg/dL HDL Cholesterol 46 >40 mg/dL [facility] Comment:Desirable HDL: great er than 40 mg/dL Note: This HDL assay may give artificially low results in patients with liver disease. 05/07/2023 8:31 AM EDT 05/07/2023 8:31 AM EDT us Generic External Data Provider LAB BLOOD ORDERAB LES Final Result Performing Organization Address City/[facility] Co de Phone Number [facility] [address] [place] [phone] * Albumin, Random Urine W/Creatinine (05/07/2023 8:30 AM EDT) Creatinine, Urine 151.49 mg/dL [facility] Microalbumin Urine 39.0 mg/L [facility] Microalbum Creatinine Ratio Ur 25.7 <30 ug/mg cr [facility] Comment:Albumin/Creatinine R atio Reference Ranges: Normal: < 30 ug/mg creatinine Microalbuminuria: 30 - 300 ug/mg creatinineClinical Albuminuria: > 300 ug/mg creatinine 05/07/2023 8:30 AM EDT 05/07/2023 9:02 AM EDT us Generic External Data Provider LAB URINE ORDERAB LES Final Result Performing Organization Address City/[facility]/ZIP Co de Phone Number [facility] [address] [place] [address] [phone] * HPV mRNA E6/E7 w/Reflex to HPV Genotypes 16, 18/45 (10/23/2022 12:48 PM EDT) HPV nRNA E6/E7 Not Detected Not Detected [facility] Comment:Methodology: Transcr iption-Mediated AmplificationThis assay detects E6/E7 viral messenger RNA (mRNA) from 14high-risk HPV types (16,18,31,33,35,39,45,51,52,56,58,59,66,68).Cervical sources are required for HPV testing.If a vaginal source from a patient who has had atotal hysterectomy with removal of cervix wassubmitted, please contact the testing laboratoryfor alternative testing options.For additional information, please refer tohttp://education.Dattch/faq/RCC553w9(This link if provided for information/educational purposes only.)THIS TEST WAS PERFORMED AT:[facility] [place] [phone] ROSARIO MD HPV mRNA E6/E7 TNP [facility] HPV 16 RNA [facility] HPV 18/45 RNA [facility] 10/23/2022 12:4 8 PM EDT 10/26/2022 9:30 AM EDT No Kern DO LAB CYTOLOGY ORDERABLES Ana Paula l Result [facility] [address] [place] [address] [phone] * Pap Smear (10/23/2022 12:48 PM EDT) 10/23/2022 12:4 8 PM EDT 10/26/2022 9:30 AM EDT Narrative [facility] - 11/03/2022 2:00 PM EDT ----- ------- Name: Christina Cohen ?Age/Sex: 56/F ? : 1965 Unit#: [id number] ?? Attend Dr: No Kern DO ?Re10/23/22 ?Status: DEP REF ? [facility] ? Disch: ? ----- ------- SPEC : [id number] ?RECD: 10/26/22 ? STATUS: ??SOUT ? REQ NUM: [id number] ? JULIUS: 10/23/22-124 ? SUBM DR: No Kern DO ? ENTERED: ??10/26/22-1230 ?SP TYPE: Pap Smr ?OTHR : ? ORDERED: ??Pap Smear ? Interpretation ?? Satisfactory for evaluation. ?? Negative for intraepithelial lesion or malignancy. ? HPV mRNA E6/E7: ?NOT DETECTED ? This assay detects E6/E7 viral messenger RNA (mRNA) from 14 high-risk HPV types (16, 18, ?? 31, 33, 35, 39, 45, 51, 52, 56, 58, 59, 66, 68) ? HPV testing performed by [facility] [place], [place]. ??See reference laboratory ?? portion of the EMR for entire report. ?Clinical Information LMP: 09/22/22 Previous PAP test: 09/29 Other history: HPV+ ? Material Received ?? ThinPrep-Vaginal/Cervical ----- ------- Signed (signature on file) Janine Morales Geovanna 11/03/22 1400 ? ----- ------- ? END OF REPORT ? No Concha DO LAB CYTOLOGY ORDERABLES Ana Paula l Result [facility] [address] [place] [phone] * Colonoscopy (02/20/2022) Colonoscopy performed Historical Provider HEALTH MAINTENANCE Final Result from Last 3 Months or Most Recently Relevant to Health Maintenance [facility] [employer] Care Teams Manipulative Therapy Specialist Relationship Specialty Start Date End Date Name, MD Sam [address] [place], [place] PCP - General Family Medicine 05/15/15
--- OUTSIDE RECORDS SUMMARY | 2024-03-08 12:54 | XMS_ITS | Encounter Summary ---
Author Organization [email or web address] [facility] Address [address] [place] [address] [address] [place] [address] Care Team Providers Care Ham Boner Name Role Phone Name, Sam LOPEZ Primary Care Provider [phone] Encounter Details Date Type Department Care Team (Late Contact Info) Description 02/26/2022 Orders Only [facility] [address] [place] [phone] Georgie Graff LPN Social History Tobacco Use Types Packs/Day Years Used Date Smoking Tobacco: Never Smokeless Tobacco: Never Depression Answer Date Recorded Patient Health Questionnaire-9 [...] suspected to have Coronavirus/COVID-19? No / Unsure 02/24/2022 1:23 PM EST documented as of this encounter Plan of Treatment Upcoming Encounters Date Type Department Care Team (Late st Contact Info) Description 03/22/2024 10:00 AM EST Telemedicine [facility] [address] [place] [address] [phone] documented as of this encounter Visit Diagnoses Not on filedocumented in this encounter Additional Health Concerns Assessment Noted Time PHQ-9 Depression Total Score: 0 02/24/19 23 1:36 PM EST documented as of this encounter Care Teams Ham Boner Relationship Specialty Start Date End Date Name, MD Sam [address] [place] [address] PCP - General Family Medicine 05/15/15 documented as of this encounter
--- OUTSIDE RECORDS SUMMARY | 2024-03-08 12:54 | XMS_ITS | Encounter Summary ---
Author Organization [employer] Address [address] [facility] [address] [place] [address] Care Team Providers Care Nurse Practitioner Home Assessments Name Role Phone Name, Sam LOPEZ Primary Care Provider [phone] Reason for Visit * Reason Comments Med Refill Encounter Details Date Type Department Care Team ([facility] st Contact Info) Description 11/25/[address] [facility] [address] [place], [place] [phone] Name, MD Sam [address] [place] [address] Hypertension, unspecified type Social History Tobacco Use Types Packs/Day Years Used Date Smoking Tobacco: Never Smokeless Tobacco: Never Alcohol Use Standard Drinks/Week Comments Never 0 (1 standard drink = 0.6 oz pur e alcohol) Depression Answer Date Recorded Patient Health Questionnaire-9 Score 0 02/24/2022 Housing Stability Answer Date Recorded What is your housing situation today? I have etta tang 11/25/[address] you [...] Info) Description 03/22/2024 10:[address] [facility] [address] [place] [address] documented as of this encounter Visit Diagnoses Diagnosis Hypertension, unspecified type documented in this encounter Additional Health Concerns Assessment Noted Time PHQ-9 Depression Total Score: 0 02/24/19 23 1:36 PM EST documented as of this encounter Care Teams Nurse Practitioner Home Assessments Relationship Specialty Start Date End Date Name, MD Sam [address] [place] [address] PCP - General Family Medicine 05/15/15 documented as of this encounter
--- OUTSIDE RECORDS SUMMARY | 2024-03-08 12:54 | XMS_ITS | Encounter Summary ---
Author Organization [email or web address] [facility] Address [address] [facility] 7t [place] [address] Care Team Providers Care Ed Transporter Name Role Phone Name, Sam LOPEZ Primary Care Provider [phone] Encounter Details Date Type Department Care Team (Late Contact Info) Description 07/21/2022 Abstract [facility] [address] [place] [phone] Name, MD Sam [address] [place] [address] Social History Tobacco Use Types Packs/Day Years [...] Info) Description 03/22/2024 10:00 AM EST Telemedicine [facility] [address] [place] [address] [phone] documented as of this encounter Visit Diagnoses Not on filedocumented in this encounter Additional Health Concerns Assessment Noted Time PHQ-9 Depression Total Score: 0 02/24/19 23 1:36 PM EST documented as of this encounter Care Teams Ed Transporter Relationship Specialty Start Date End Date Name, MD Sam [address] [place] [address] PCP - General Family Medicine 05/15/15 documented as of this encounter
--- OUTSIDE RECORDS SUMMARY | 2024-03-08 12:54 | XMS_ITS | Encounter Summary ---
Author Organization [employer] [facility] Address [address] [facility] 7t [place] [address] Care Team Providers Care Fly Frame Tender Name Role Phone Name, Sam LOPEZ Primary Care Provider [phone] Reason for Visit * Reason Onset Date Comments Pre-Op 09/21/2023 Encounter Details Date Type Department Care Team ([facility] st Contact Info) Description 09/21/2023 Telephone [facility] [address] [place], [place] [phone] Name, MD Sam [address] [place] [address] Pre-Op Social History Tobacco Use Types Packs/Day Years [...] Recorded Patient Health Questionnaire-2 Score 0 03/31/2023 Comments Unknown Sex and Gender Information Value Date Recorded Sex Assigned at Female 12/08/2021 10:16 AM EDT Legal Sex Female 10:16 AM EDT Gender Identity Female 12/08/2021 10:16 AM EDT Sexual Orientation Straight 12/08/2021 10 :16 AM EDT documented as of this encounter Miscellaneous Notes * Telephone Encounter - Patrica Yuan - 09/21/2023 11:31 AM EDT Pt agreed to come in for pre op appointment on 10/08/23 at 10:30AM [facility]. Appointment reminder letter mailed * Telephone Encounter - Dominick Garcia - 09/21/2023 10:18 AM EDT Date of Surgery: Left EYE 10/18/23 and 11/08/23 RIGHT EYE Surgical procedure being done: CATARACT Surgery on Both EYES Type of anesthesia: MAC Lab needed: No EKG: Yes Surgeon's name: Dr. Kaur Facility name: [facility] Surgeon's office number: [phone] EXT [facility] Surgeon's office fax number: [phone] Contact name (person you spoke with): MELY Last office note from surgeon requested: Yes documented in this encounter Plan of Treatment Upcoming Encounters Date Type Department Care Team ([facility] st Contact Info) Description 03/22/2024 10:00 AM EST Telemedicine [facility] [address] [place] [address] documented as of this encounter Visit Diagnoses Not on filedocumented in this encounter Additional Health Concerns Assessment Noted Time PHQ-9 Depression Total Score: 1 03/31/19 24 9:26 AM EST documented as of this encounter Care Teams Fly Frame Tender Relationship Specialty Start Date End Date Name, MD Sam [address] [place] [address] PCP - General Family Medicine 05/15/15 documented as of this encounter
--- OUTSIDE RECORDS SUMMARY | 2024-03-08 12:54 | XMS_ITS | Encounter Summary ---
Author Organization [employer] Address [address] [facility] 7t [place] [address] Care Team Providers Care Component Assembler Supervisor Name Role Phone Name, Sam LOPEZ Primary Care Provider [phone] Reason for Visit * Reason Comments Pre-visit Planning SDOH negative, Tobac co screening negative. Encounter Details Date Type Department Care Team ([facility] st Contact Info) Description 03/01/2024 Patient Outreach [facility] [address] [place], [place] [phone] Name, MD Sam [address] [place] [address] Pre-visit Planning (SDOH negative, Tobacco screening negative. ) Social History Tobacco Use Types Packs/Day Years [...] AM EDT documented as of this encounter Progress Notes * Ida Sands - 03/01/2024 11:02 AM EST CC Ida Lopez placed successful outbound call to patient for pre-visit planning. Patient name and confirmed. Patient confirms appt date and time, and has transportation arrangements. Biggest concern for appointment at this time is no concerns. Appropriate screenings completed in anticipation ofappointment. documented in this encounter Plan of Treatment Upcoming Encounters Date Type Department Care Team (Late st Contact Info) Description 03/22/2024 10:00 AM EST Telemedicine [facility] [address] [place] [address] documented as of this encounter Visit Diagnoses Not on filedocumented in this encounter Additional Health Concerns Assessment Noted Time PHQ-9 Depression Total Score: 1 03/31/19 24 9:26 AM EST documented as of this encounter Care Teams Component Assembler Supervisor Relationship Specialty Start Date End Date Name, MD Sam [address] [place] [address] PCP - General Family Medicine 05/15/15 documented as of this encounter
== END 2024-03-08 10:48 | disposition home or self-care (01) ==
LOC: HO.HHCX 10:47
PROVIDERS: Visit Provider Internal Medicine Geriatric Medicine
DX: R05.2 Subacute cough (principal)
CPT/HCPCS: 71046

== ENCOUNTER → 2024-03-08 10:48 | Outpatient (BNV) | payer MEDICAID, SELFPAY | PROVIDERS: Visit Provider Radiology Diagnostic Radiology | DX: R05.2 Subacute cough (principal) | CPT/HCPCS: 71046 ==

== ENCOUNTER 2024-03-09 09:41 | Outpatient (AMB) | payer MEDICAID, SELFPAY ==
--- NOTE | 2024-03-09 07:20 | A.OFFVIS_ITS ---
Vital Signs 03/09/24 10:01 Height 5 ft 3 in Weight 205 lb 0.478 oz BMI 36.3 BP 116/70 Blood Pressure Location Rt brachial Position Sitting Pulse 84 Pulse Source Pulse Oximeter Intake Visit Reasons: f/up DM Intake Note: Patient present today to follow up on Type 1 Diabetes Mellitus. Patient receives DME supplies through: [facility] Patient receives pump supplies through: Pharmacy Last Diabetic Eye exam: 06/04/2023 Last Podiatry Visit: Does not see a Electric Container Tester Most Recent HgA1C: 7.4%, 03/09/2024 Random Glucose: 135 mg/dL, Today Chief Warden Required: Yes Chief Warden Language: Adaptive Physical Educator Services: Chief Warden Offered & Declined Information Interpreted: non-clinical & clinical Accompanied by: Daughter Allergies No Known Allergies [No Known Allergies*] Allergy (Verified 12/08/23 10:00) Medication List - Last Reconciled 03/09/24 by Angella Denton NP acetone (urine) test (Ketone Urine Test strips) As directed for glucose over 250 or nausea and vomiting. Follow directions on package prn tid atorvastatin 80 mg PO DAILY blood sugar diagnostic (FreeStyle Lite Strips) As directed blood-glucose meter (FreeStyle Lite Meter kit) As directed blood-glucose sensor (Dexcom G7 Sensor device) As directed change every 10 days bupropion HCl SR (Wellbutrin SR) 200 mg PO BID clonazepam 0.5 mg PO BID PRN fluticasone propionate 50 mcg/actuation 0 mcg intranasal glucagon 3 mg/actuation (Baqsimi) 3 mg intranasal ONCE 30 days insulin aspart U-100 75 units (0.75 mL) subcut DAILY 30 days insulin pump cart,auto,BT,G6/7 (Omnipod 5 G6-G7 Pods (Gen 5) subcutaneous cartridge) USE DIRECTED. CHANGE EVERY 72 HOURS. insulin pump cart,automated,BT (Omnipod 5 G6 Pods (Gen 5) subcutaneous cartridge) DIRECTED CHANGE EVERY 72 HRS insulin syr/ndl U100 half ravinder (BD Veo Insulin Syringe Ultra-Fine (half unit)) As directed four times a day insulin syringe-needle U-100 (BD Insulin Syringe Ultra-Fine) As directed five times a day insulin syringe-needle U-100 (BD Insulin Syringe Ultra-Fine) As directed up to 5 times daily lancets (FreeStyle Lancets) As directed Lantus Solostar U-100 Insulin (insulin glargine) 46 units (0.46 mL) subcut DAILY NS lisinopril 2.5 mg PO DAILY pen needle, diabetic (BD Marisa 2nd Gen Pen Needle) ONCE DAILY USE DIRECTED prazosin 2 mg PO BEDTIME quetiapine ER 150 mg PO DAILY sertraline 100 mg PO DAILY HPI Comments Details: Patient is 57 yo female with DM type 1 diagnosed at age 27 who presents for visit for continued diabetes management. She was last seen by CDE 01/13/24 and by myself 12/01. Hgb A1C 03/09/24: 7.4%, A1C 7.1% 12/08/23, A1C 09/07/23 6.9% Diabetes medications: Novolog via Omnipod Classic pump with Dexcom G6. Basal rate(s) (units/hour) : 12 AM to 7 AM 1.8 units / hr 7 AM? to 6 PM? 1.8 units / hr 6 PM? to 8 PM? 1.9 units / hr 8 PM? to 12 AM? 1.8 units / hr Bolus setting Insulin Carbohydrate Ratio (s) 12 AM? to 12 PM? 1:7.5 12 PM to 5 PM? 1:7 5 PM to 12 AM 1:6 Correction Factor / Sensitivity Factor 12 AM? to 12 PM? 1:30 12 PM? to 8 PM? 1:30 8 PM to 12 AM ? 1:32 Active Insulin Time:? 4 hours Target(s): 12 AM? to 12 AM? 110 Correction threshold: 12 AM? to 12 AM? 110 No Retinopathy: Last eye exam April 2023 has scheduled No Neuropathy: Denies numbness, tingling, pain or cramping in the lower extremities Has nephropathy; 05/07/2023 eGFR>60 microalbumin 39 on low-dose Justin-I Has HLD: On statin most recent LDL 65 05/07/2023 Diet Exercise: none Sees nurse informatics educator Dexcom average glucose: 162 14 day continuous glucose monitor report reviewed Glucose Managment indicator 7.2 % Days with CGM data 92.4 % TIme in ranges: 2% very high (above 250) 26 % high ?(181-250) 71 % in range ?(70-180] 0 % low (69-55) 0 % ?very low (below 54) Interpretation [sensor shows readings in good control ] Total daily dose of insulin 62.9 66% basal 41.5 34% bolus 21.4 Entering in 147 carbs per day in auto mode 100% of the time [facility] Medical History Kinsey's palsy Hypertension Cerebral palsy Depression Insomnia Proteinuria Type 1 diabetes mellitus with other diabetic kidney complication Hyperlipidemia, unspecified Surgical History H/O colonoscopy Hx of section History of appendectomy Family History Father Lung cancer Mother Colon cancer Diabetes HTN (hypertension) CVD (cardiovascular disease) Social History Household Members: Family and Children Household Members Other:: grandchidren Alcohol intake: never Patient Tobacco Use Status: Never used Tobacco Physical Exam Vital Signs: Last Vital Signs Pulse 84 03/09/24 10:01 BP 116/70 03/09/24 10:01 BMI result Body Mass Index 36.3 Const Other: Absence of Cushingoid features. Absence of acromegalic features. Neck exam reveals nl size thyroid about 15 gms. No thyroid nodules palpable. No carotid bruits present. Lungs CTA. Heart S1 S2, Reg R/R. No M/R G. Skin exam reveals absence of vitiligo or acanthosis nigricans. No edema Visual exam of foot performed. No ulcerations or open lesions. No inter digit maceration or fissuring. No onychomycosis, no callouses. Sensation intact to monofilament exam. Vibratory sensation is normal with 128 Hz tuning fork. Office Procedures Glucose Monitoring Details Details: See [facility] [address] - Glucose monitoring, continuous-physician I&R Procedure code (CPT) selection complete Results AMB Hemoglobin A1c AMB Hemoglobin A1c 7.4 % Last Edit by IVETH Gaona on 03/09/24 10:20 Results Reviewed Results Reviewed: Laboratory Last Values Glucose (Clinic) 135 mg/dL (60-115) H 03/09/24 10:07 Hgb A1c (Clinic) 7.4 % (4.0-6.0) H 03/09/24 10:19 Assessment & Plan Assessment & Plan (1) Type 1 diabetes mellitus with other diabetic kidney complication: Code(s): E10.29 - Type 1 diabetes mellitus with other diabetic kidney complication Category: Medical Plan: 58-year-old type 1 diabetic with nephropathy with preserved renal function on low-dose Justin-i on an Omnipod insulin pump with an A1c of 03/09/2024 7.4%. Latest 2 week download shows that she is in good control. The patient had an opportunity to ask questions regarding treatment plan. The patient expressed understanding and agreement with the above treatment plan. The patient is aware they should contact our office by phone for worsening glucose readings or for any low blood sugars which may warrant a change in diabetes medication. Compliance is encouraged with medications and any followup testing/consults which may have been ordered. Orders: Orders Lipid Panel Today E10.29 - Type 1 diabetes mellitus with other diabetic kidney complication Microalbumin, Random (w Creat) Today E10.29 - Type 1 diabetes mellitus with other diabetic kidney complication Creatinine Urine Today E10.29 - Type 1 diabetes mellitus with other diabetic kidney complication AMB Hemoglobin A1c Today E10.29 - Type 1 diabetes mellitus with other diabetic kidney complication AMB Glucose Monitoring Today E10.29 - Type 1 diabetes mellitus with other diabetic kidney complication Patient Instructions: The patient was counseled to achieve a target A1C of 7% (154 avg). Fasting blood sugars should be 90-130 in the morning and less than 180 two hours after meals. Reviewed the relationship between poor diabetic control and the development of complications. Check your feet daily looking for any signs of infection, drainage, redness, ulceration and seek medical attention if this occurs. Break in shoes gradually and do not wear open-toed shoes or walk stocking footed or barefooted. Troubleshooting after starting new pod or inserting new insulin set: Occlusion, adhesive tape sensitivity, redness Check BG 2 hours after site change Safety information: Importance of a backup plan, for manual injections, proper prescriptions and emergency supplies ketone strips, and rules for testing for ketones Diabetic ketoacidosis (DKA) A serious condition that can lead to diabetic coma (passing out for a long time) or even When your cells don't get the glucose they need for energy, your body begins to burn fat for energy, which produces ketones. Ketones are chemicals that the body creates when it breaks down fat to use for energy. The body does this when it doesn?t have enough insulin to use glucose, the body?s normal source of energy. When ketones build up in the blood, they make it more acidic. They are a warning sign that your diabetes is out of control or that you are getting sick. Symptoms of Diabetic Ketoacidosis (DKA) DKA usually develops slowly. But when vomiting occurs, this life-threatening condition can develop in a few hours. Early symptoms include the following: ? Thirst or a very dry mouth ? Frequent urination ? High blood glucose (blood sugar) levels ? High levels of ketones in the urine ? Then, other symptoms appear: ? Constantly feeling tired ? Dry or flushed skin ? Nausea, vomiting, or abdominal pain ? (Vomiting can be caused by many illnesses, not just ketoacidosis. If vomiting continues for more than 2 hours, contact your health care provider.) ? Difficulty breathing ? Fruity odor on breath ? A hard time paying attention, or confusion When should you test for ketones? It is advisable to check for ketones under the following conditions when: Your blood glucose is higher than 250mg/dl. Feeling nauseated, throwing up, or have pains in your abdominal region. Have a cold or flu. Have general body fatigue. Feel thirsty or have a very dry mouth. Have flushed skin. Have a fruity breath or a hard time breathing. You feel perplexed or in fog. How to Test Urine for Ketones You can detect ketones with a simple urine test using a test strip, similar to a blood testing strip. Ask your health care provider when and how you should test for ketones. Many experts advise to check your urine for ketones when your blood glucose is more than 250 mg/dl. When you are ill (when you have a cold or the flu, for example), check for ketones every 4 to 6 hours. And check every 4 to 6 hours when your blood sugar is more than 250 mg/dl. Also, check for ketones when you have any symptoms of DKA. How to lower your blood sugar level. ? Take medications as directed by physician. ? Drink extra water or noncaffeinated, nonsugared drinks to prevented hydration. ? Exercise if you are not sick However, if your blood sugar is above 250 mg/dl, check your urine for ketones. If you have ketones, do not exercise Exercising when ketones are present may make your blood sugar level go even higher. You'll need to work with your doctor to find the safest way for you to lower your blood sugar level. Coding Level of Care Code Est Pt Level 4 (10314) Diagnoses Type 1 diabetes mellitus with other diabetic kidney complication E10.29 CPT Codes Details - CPT: 63425 - Glucose monitoring, continuous-physician I&R ([id number]) Time Spent (min) 30 Comment Reviewing labs/provider notes, glucose sensor/pump reports, face to face, chart doc
[2024-03-09 10:01] VITALS: BP 116/70; PULSE 84; BMI 36.3
[2024-03-09 10:10] LABS: Glucose, Whole Blood 135 mg/dL (60-115)
--- OUTSIDE RECORDS SUMMARY | 2024-03-09 12:42 | XMS_ITS | Encounter Summary ---
Author Organization [employer] [facility] Address [address] [facility] 7t [place] [address] Care Team Providers Care Manager Dish Name Role Phone Name, Sam LOPEZ Primary Care Provider [phone] Encounter Details Date Type Department Care Team (Late Contact Info) Description 07/30/2022 Abstract [facility]INE [address] [place] [address] Name, MD Sam [address] [place] [address] Social History Tobacco Use Types Packs/Day Years [...] Info) Description 03/22/2024 10:00 AM EST Telemedicine [facility] MED[facility]INE [address] [place] [address] [phone] documented as of this encounter Procedures Procedure [...] documented as of this encounter Care Teams Manager Dish Relationship Specialty Start Date End Date Name, MD Sam [address] [facility] [place] [address] PCP - General Family Medicine 05/15/15 documented as of this encounter
--- OUTSIDE RECORDS SUMMARY | 2024-03-09 12:42 | XMS_ITS | Encounter Summary ---
Author Organization [employer] Address [address] [facility] 7t [place] [address] Care Team Providers Care Home Health Care Social Worker Name Role Phone Name, Sam LOPEZ Primary Care Provider [phone] Reason for Visit * Reason Comments Med Refill Encounter Details Date Type Department Care Team ([facility] st Contact Info) Description 11/25/2022 Refill [facility] MED & PEDS [address] [place], [place] [phone] Name, MD Sam [address] [place] [address] Hypertension, unspecified type Social History Tobacco Use [...] Info) Description 03/22/2024 10:00 AM EST Telemedicine [facility] MEDICINE [address] [place] [address] documented as of this encounter Visit Diagnoses Diagnosis Hypertension, unspecified type documented in this encounter Additional Health Concerns Assessment Noted Time PHQ-9 Depression Total Score: 0 02/24/19 23 1:36 PM EST documented as of this encounter Care Teams Home Health Care Social Worker Relationship Specialty Start Date End Date Name, MD Sam [address] [place] [address] PCP - General Family Medicine 05/15/15 documented as of this encounter
--- OUTSIDE RECORDS SUMMARY | 2024-03-09 12:42 | XMS_ITS | Encounter Summary ---
Author Organization [employer] [facility] Address [address] [facility] 7t [place] [address] Care Team Providers Care Newspaper Publisher Name Role Phone Name, Sam LOPEZ Primary Care Provider [phone] Reason for Visit * Reason Onset Date Comments Pre-Op 09/21/2023 Encounter Details Date Type Department Care Team ([facility] st Contact Info) Description 09/21/2023 Telephone [facility] MEDICINE [address] [place], [place] [phone] Name, MD Sam [address] [place] [address] Pre-Op Social History Tobacco Use Types Packs/Day [...] pre op appointment on 10/08/23 at 10:30AM [facility]. Appointment reminder letter mailed * Telephone Encounter - Dominick Garcia - 09/21/2023 10:18 AM EDT Date of Surgery: Left EYE 10/18/23 and 11/08/23 RIGHT EYE Surgical procedure being done: CATARACT Surgery on Both EYES Type of anesthesia: MAC Lab needed: No EKG: Yes Surgeon's name: Dr. Kaur Facility name: [facility] Surgeon's office number: [phone] EXT [facility] Surgeon's office fax number: [phone] Contact name (person you spoke with): MELY Last office note from surgeon requested: Yes documented in this encounter Plan of Treatment Upcoming Encounters Date Type Department Care Team ([facility] st Contact Info) Description 03/22/2024 10:00 AM EST Telemedicine [facility] MEDICINE [address] [place] [address] documented as of this encounter Visit Diagnoses Not on filedocumented in this encounter Additional Health Concerns Assessment Noted Time PHQ-9 Depression Total Score: 1 03/31/19 24 9:26 AM EST documented as of this encounter Care Teams Newspaper Publisher Relationship Specialty Start Date End Date Name, MD Sam [address] [place] [address] PCP - General Family Medicine 05/15/15 documented as of this encounter
--- OUTSIDE RECORDS SUMMARY | 2024-03-09 12:42 | XMS_ITS | Encounter Summary ---
Author Organization [employer] [facility] Address [address] [facility] 7t [place] [address] Care Team Providers Care Technical Testing Engineer Name Role Phone Name, Sam LOPEZ Primary Care Provider [phone] Reason for Visit * Reason Comments Med Refill Encounter Details Date Type Department Care Team ([facility] Contact Info) Description 01/04/[address] [facility] MEDICINE [address] [place], [place] [phone] Name, MD Sam [address] [place] [address] Social History Tobacco Use Types Packs/Day Years [...] EST Telemedicine [facility] MEDICINE [address] [place] [address] documented as of this encounter Visit Diagnoses Not on filedocumented in this encounter Additional Health Concerns Assessment Noted Time PHQ-9 Depression Total Score: 0 02/24/19 23 1:36 PM EST documented as of this encounter Care Teams Technical Testing Engineer Relationship Specialty Start Date End Date Name, MD Sam [address] [place] [address] PCP - General Family Medicine 05/15/15 documented as of this encounter
--- OUTSIDE RECORDS SUMMARY | 2024-03-09 12:42 | XMS_ITS | Encounter Summary ---
Author Organization [facility] Address [address] [facility] 7t [place] [address] Care Team Providers Care Steel Fixer Name Role Phone Name, Sam LOPEZ Primary Care Provider [phone] Reason for Visit * Reason Comments Diabetes Hypertension Encounter Details Date Type Department Care Team ([facility] Contact Info) Description 03/08/2024 10:00 AM EST Office Visit [facility] MED[facility]INE [address] [place], [place] [phone] Name, MD Sam [address] [place] [address] Subacute cough (Primary Dx); Essential hypertension; Type [...] 1 diabetes mellitus with other specified complication ([facility]) Comments: Continue current medications as per [facility] Endo. Avoid sweets. Flu vaccine today. Orders: [...] Info) Description 03/22/2024 10:00 AM EST Telemedicine [facility] MED[facility]INE [address] [place] [address] Scheduled Orders Name Type Priority Associated Diagnoses [...] AM EST Narrative 03/08/2024 11:22 AM EST ?[facility] ?[address] ?[place] [address] ?XRay Report ? Signed ? Patient: Nikolai Dougherty,Christina M ?MR ?? #: [id number] ? : 1965 ?Acct:[id number] ? Age/Sex: 58 / F ?ADM Date: /29/25 ? Loc: HO.HHCX ? Attending Dr: Sam Gleason MD ? Ordering Physician: Rosibel,Sam LOPEZ ?? Date of Service: 03/08/24 ?? Procedure(s): XR chest 2V ?? Accession Number(s): [id number] ? cc: Name,Sam LOPEZ ? EXAMINATION: ?? [...] DD/ 1048 ? TD/TT: 03/08/24 1100 ? Supervisor Final: ? Procedure Note Errol, Feliz - 03/08/[address] [address] XRay Report Signed Patient: Christina Cohen MMR #: [id number] : 1965Acct:[id number] Age/Sex: 58 / FADM Date: 03/08/24 Loc: HO.HHCX Attending Dr: Sam Gleason MD Ordering Physician: Sam Gleason MD Date of Service: 03/08/24 Procedure(s): XR chest 2V Accession Number(s): [id number] cc: Sam Gleason MD EXAMINATION: XR CHEST [...] 03/08/24 1120 DD/ 1048 TD/TT: 03/08/24 1100 Supervisor Final: Sam Gleason MD IMG XR PROCEDURES Edited [...] documented as of this encounter Care Teams Steel Fixer Relationship Specialty Start Date End Date Name, MD Sam [address] [place] [address] PCP - General Family Medicine 05/15/15 documented as of this encounter
--- OUTSIDE RECORDS SUMMARY | 2024-03-09 12:42 | XMS_ITS | Encounter Summary ---
Author Organization [facility] Address [address] [facility] 7t [place] [address] Care Team Providers Care Steep Tender Name Role Phone Name, Sam LOPEZ Primary Care Provider [phone] Encounter Details Date Type Department Care Team (Late st Contact Info) Description 03/09/2024 Orders Only GENERIC EXTERNAL DATA DEPARTMENT Provider, Generic External Data Social History Tobacco Use Types Packs/Day Years [...] Description 03/22/2024 10:[address] [facility] [address] [place] [address] documented as of this encounter Procedures Procedure Name Priority Date/Time Associated Diagnosis Comments GLUCOSE, WHOLE BLOOD Routine 03/09/2024 10:07 AM EST documented in this encounter Results * (ABNORMAL) Glucose, Whole Blood (03/09/2024 10:07 AM EST) Glucose, Whole Blood 135(H) 60 - 115 mg/dL [facility] Comment:METER #: [id number] 5Testing performed in the Endocrinology Department [address] , [address], [facility]. 03/09/2024 10:0 7 AM EST 03/09/2024 10:10 AM EST us Generic External Data Provider LAB BLOOD ORDERAB LES Final Result [facility] [address] [place] [address] [phone] documented in this encounter Visit Diagnoses Not on filedocumented in this encounter Additional Health Concerns Assessment Noted Time PHQ-9 Depression Total Score: 1 03/31/19 24 9:26 AM EST documented as of this encounter Care Teams Steep Tender Relationship Specialty Start Date End Date Name, MD Sam [address] [place] [address] PCP - General Family Medicine 05/15/15 documented as of this encounter
--- OUTSIDE RECORDS SUMMARY | 2024-03-09 12:42 | XMS_ITS | Encounter Summary ---
Author Organization [facility] Address [address] [place] [address] 7t [place] [address] Care Team Providers Care Orthotist/Prosthetist Name Role Phone Name, Sam LOPEZ Primary Care Provider [phone] Encounter Details Date Type Department Care Team (Late Contact Info) Description 02/26/2022 Orders Only [facility] [address] [place] [address] Georgie Graff LPN Social History Tobacco [...] Info) Description 03/22/2024 10:00 AM EST Telemedicine [facility] [address] [place] [phone] documented as of this encounter Visit Diagnoses Not on filedocumented in this encounter Additional Health Concerns Assessment Noted Time PHQ-9 Depression Total Score: 0 02/24/19 23 1:36 PM EST documented as of this encounter Care Teams Orthotist/Prosthetist Relationship Specialty Start Date End Date Name, MD Sam [address] [place] [address] PCP - General Family Medicine 05/15/15 documented as of this encounter
--- OUTSIDE RECORDS SUMMARY | 2024-03-09 12:42 | XMS_ITS | Clinical Summary ---
Author Organization [employer] Address [address] [facility] 7t [place] [address] Care Team Providers Care Tester [employer]ed Circuit Boards Name Role Phone Name, Sam LOPEZ Primary Care Provider [phone] Allergies No known active allergies Medications atorvastatin [...] 1 diabetes mellitus with other specified complication ([facility]) USE DIRECTED TO CHECK BLOOD SUGAR 4 [...] Encounters Date Type Department Care Team Description 03/09/2024 Orders Only GENERIC EXTERNAL DATA DEPARTMENT Provider, Generic External Data 03/08/2024 10:00 AM EST Office Visit [facility] MEDICINE [address] [place] [phone] NameSam MD Subacute cough (Primary Dx); Essential hypertension; Type 1 diabetes mellitus with other specified complication ([facility]) 03/01/2024 Patient Outreach [facility] CHC MED & PEDS [address] [place], [place] [phone] NameSam MD Pre-visit Planning (SDOH negative, Tobacco screening negative. ) 01/08/2024 Refill [facility]INE [address] [place] [address] Sam Gleason MD 12/08/2023 Orders Only GENERIC [...] Info) Description 03/22/2024 10:00 AM EST Telemedicine [facility] MEDICINE [address] [place] [address] Health Maintenance Due Date Last Done Comments [...] Exam 07/12/2024 07/13/2023, 06/04/2023 Mammogram 07/13/2024 07/14/2023, 0507/2022, 06/23/2022, Additional history exists SDOH Screening 03/01/2025 [...] topic Meningococcal Vaccine Aged Out No tila lavell eligible based on patient's age to complete this topic RSV under 20 months Aged Out No longe r eligible based on patient's age to complete this topic Rotavirus Vaccines Aged Out No longer eligible based on patient's age to complete this topic Procedures Procedure Name Priority Date/Time Associated Diagnosis Comments GLUCOSE, WHOLE BLOOD Routine 03/09/2024 10:07 AM EST XR CHEST 2 VIEWS Routine 03/08/2024 10:4 [...] TOMOSYNTHESIS BILATERAL Routine 07/14/2023 12:00 PM EDT DIABETES EYE EXAM Routine 07/13/2023 HEPATITIS C [...] Recently Relevant to Health Maintenance Results * (ABNORMAL) Glucose, Whole Blood (03/09/2024 10:07 AM EST) Only the most recent of2 resultswithin the time period is included. Glucose, Whole Blood 135(H) 60 - 115 mg/dL [facility] Comment:METER #: [id number] 5Testing performed in the Endocrinology Department [address] , [address], [facility]. 03/09/2024 10:0 7 AM EST 03/09/2024 10:10 AM EST us Generic External Data Provider LAB BLOOD ORDERAB LES Final Result [facility] [address] [place] [phone] * XR Chest 2 Views (03/08/2024 10:48 AM EST) Anatomical Region Laterality Modality Chest Radiographic Debi ging 03/08/2024 10:4 8 AM EST Narrative 03/08/2024 11:22 AM EST ?[facility] ?[address] ?[place] [address] ?XRay Report ? Signed ? Patient: Christina Cohen ?MR ?? #: [id number] ? : 1965 ?Acct:[id number] ? Age/Sex: 58 / F ?ADM Date: 03/08/24 ? Loc: HO.HHCX ? Attending Dr: Sam Gleason MD ? Ordering Physician: Sam Gleason MD ?? Date of Service: 03/08/24 ?? Procedure(s): XR chest 2V ?? Accession Number(s): [id number] ? cc: Sam Gleason MD ? EXAMINATION: [...] DD/ 1048 ? TD/TT: 03/08/24 1100 ? Health Care Technician: ? Procedure Albaro Norton, Feliz - 03/08/2024 [facility] [address] [place] [address] XRay Report Signed Patient: Christina Cohen [facility] #: [id number] : 1965Acct:[id number] Age/Sex: 58 / FADM Date: 03/08/24 Loc: HO.HHCX Attending Dr: Sam Gleason MD Ordering Physician: Sam Gleason MD Date of Service: 03/08/24 Procedure(s): XR chest 2V Accession Number(s): [id number] cc: Sam Gleason MD EXAMINATION: XR CHEST [...] 03/08/24 1120 DD/ 1048 TD/TT: 03/08/24 1100 Health Care Technician: us Sam Gleason MD IMG XR PROCEDURES Edited Result - Final * (ABNORMAL) POCT HGB A1C (03/08/2024 9:58 AM EST) Hemoglobin A1C 7.1(A) 4.0 - 6.0 % QC Media Lot # [id number] Lot# Expiration Date 71,626 Blood 03/08/2024 9:58 AM EST us Sam Gleason MD POINT OF CARE TEST ENTER/EDIT OR DERABLES Final Result * POCT Glucose (03/08/2024 9:57 AM EST) Glucose Blood, POC 118 60 - 200 mg/dL QC Media Lot # [id number] Lot# Expiration Date 53,025 Blood Capillary blood specimen / Unknown 03/08/2024 9:57 AM EST us Sam Name MD POINT OF CARE TEST ENTER/EDIT OR DERABLES Final Result * BI Mammogram Screening Tomosynthesis Bilateral (07/14/2023 12:00 PM EDT) Anatomical Region Laterality Modality Breast Bilateral Mammography 07/14/2023 12:0 0 PM EDT Narrative 08/10/2023 8:30 AM EDT ? [facility] ? [address] ?[place] [address] ? Mammography Report ? Signed ? Patient: Christina Cohen ?MR ?? #: [id number] ? : 1965 ?Acct:[id number] ? Age/Sex: 57 / F ?ADM Date: 07/14/23 ? Loc: HO.MAMMO ? Attending Dr: Sam Name MD ? Ordering Physician: Name,Sam LOPEZ ?Results: 2Benign Fi ?? ndings ? Date of Service: 07/14/23 ?Follow Up: 1 Year From Orig ?? inal Mammogram ? Procedure(s): MM tomosynthesis screening BI ?? Accession Number(s): [id number] ? cc: Name,Sam LOPEZ ? EXAMINATION: ?? MM SCREENING DIGITAL BREAST [...] by Adrienne Hoffman MD in OV> ? 08/10/23 0826 ? DD/ 1200 ? TD/TT: ? Health Care Technician: ? Procedure Note Donrachter, Image - 08/10/2023 [facility] [address] [place], [place] [address] Mammography Report Signed Patient: Christina Cohen MMR #: [id number] : 1965Acct:[id number] Age/Sex: 57 / FADM Date: 07/14/23 Loc: APPLE Attending Dr: Sam Gleason MD Ordering Physician: Sam Gleasonults: 2Bnicolas Fi ndedinson Date of Service: 07/14/23Follow Up: 1 Year From Orig inal Mammogram Procedure(s): MM tomosynthesis screening BI Accession Number(s): [id number] cc: Sam Gleason MD EXAMINATION: MM SCREENING [...] in OV> 08/10/23 0826 DD/ 1200 TD/TT: Health Care Technician: us Sam Gleason MD IMG BI PROCEDURES Edited Result - Final * Hm Diabetes Eye Exam (07/13/2023) Eye Exam Normal Normal us Sam Gleason MD HEALTH MAINTENANCE Final Result * Hepatitis C Ab (05/07/2023 8:31 AM EDT) Hepatitis C Antibody Nonreactive Nonreactive [facility] Comment:Antibodies to HCV no t detected; does not exclude early acuteHCV infection. Blood Venous blood specimen / Unknown 05/07/2023 8:31 AM EDT 05/07/2023 8:31 AM EDT us Sam Gleason MD LAB BLOOD ORDERABLES Final Resul t [facility] [address] [place] [phone] * Lipid Panel, Standard (05/07/2023 8:31 AM EDT) Triglycerides 58 <150 mg/dL [facility] Comment:Desirable Triglyceri de: less than 150 mg/dLBorderline High Triglyceride 150-199 mg/dLHigh Triglyceride: 200-499 mg/dLVery High Triglyceride: greater than or equal to 5OO mg/dL Cholesterol 122 <200 mg/dL [facility] Comment:Desirable Cholestero l: less than 200 mg/dLBorderline High Cholesterol: 200-239 mg/dLHigh Cholesterol: greater than 239 mg/dL LDL Cholesterol Calculated 65 <100 mg/dL [facility] Comment:Desirable LDL: less than 100 mg/dLNear Optimal/Above Optimal LDL: 110- 129 mg/dLBorderline High LDL: 130-159 mg/dLHigh LDL: 160-189 mg/dLVery High LDL: greater than or equal to 190 mg/dL HDL Cholesterol 46 >40 mg/dL [facility] Comment:Desirable HDL: great er than 40 mg/dL Note: This HDL assay may give artificially low results in patients with liver disease. 05/07/2023 8:31 AM EDT 05/07/2023 8:31 AM EDT us Generic External Data Provider LAB BLOOD ORDERAB LES Final Result [facility] [address] [place] [address] [phone] * Albumin, Random Urine W/Creatinine (05/07/2023 8:30 AM EDT) Creatinine, Urine 151.49 mg/dL [facility] Microalbumin Urine 39.0 mg/L [facility] Microalbum Creatinine Ratio Ur 25.7 <30 ug/mg cr [facility] Comment:Albumin/Creatinine R atio Reference Ranges: Normal: < 30 ug/mg creatinine Microalbuminuria: 30 - 300 ug/mg creatinineClinical Albuminuria: > 300 ug/mg creatinine 05/07/2023 8:30 AM EDT 05/07/2023 9:02 AM EDT us Generic External Data Provider LAB URINE ORDERAB LES Final Result Performing Organization Address [facility]/ZIP Co de Phone Number [facility] [address] [place] [phone] * HPV mRNA E6/E7 w/Reflex to HPV Genotypes 16, 18/45 (10/23/2022 12:48 PM EDT) HPV nRNA E6/E7 Not Detected Not Detected [facility] Comment:Methodology: Transcr iption-Mediated AmplificationThis assay detects E6/E7 viral messenger RNA (mRNA) from 14high-risk HPV types (16,18,31,33,35,39,45,51,52,56,58,59,66,68).Cervical sources are required for HPV testing.If a vaginal source from a patient who has had atotal hysterectomy with removal of cervix wassubmitted, please contact the testing laboratoryfor alternative testing options.For additional information, please refer tohttp://education.[employer]/faq/KDY796i3(This link if provided for information/educational purposes only.)THIS TEST WAS PERFORMED AT:[facility] [place] [phone] ROSARIO MD HPV mRNA E6/E7 [facility] HPV 16 RNA [facility] HPV 18/45 RNA [facility] 10/23/2022 12:4 8 PM EDT 10/26/2022 9:30 AM EDT us No Kern DO LAB CYTOLOGY ORDERABLES Ana Paula l Result Performing Organization Address City/[facility]/ZIP Co de Phone Number [facility] [address] [place] [address] [phone] * Pap Smear (10/23/2022 12:48 PM EDT) 10/23/2022 12:4 8 PM EDT 10/26/2022 9:30 AM EDT Narrative [facility] - 11/03/2022 2:00 PM EDT ----- ------- Name: Nikolai DoughertyChristina mac ?Age/Sex: 56/F ? : 1965 Unit#: [id number] ?? Attend Dr: No Kern DO ?Re10/23/22 ?Status: DEP REF ? Location: HO.ANGELINANP ? Disch: ? ----- ------- SPEC : [id number] ?RECD: 10/26/22 ? STATUS: ??SOUT ? REQ NUM: [id number] ? JULIUS: 10/23/22-1247 ? SUBM DR: No Kern DO ? ENTERED: ??10/26/22-1230 ?SP TYPE: Pap Smr ?OTHR DR: ? ORDERED: ??Pap Smear ? Interpretation ?? Satisfactory for evaluation. ?? Negative for intraepithelial lesion or malignancy. ? HPV mRNA E6/E7: ?NOT DETECTED ? This assay detects E6/E7 viral messenger RNA (mRNA) from 14 high-risk HPV types (16, 18, ?? 31, 33, 35, 39, 45, 51, 52, 56, 58, 59, 66, 68) ? HPV testing performed by [facility], [place], [place]. ??See reference laboratory ?? portion of the EMR for entire report. ?Clinical Information LMP: 09/22/22 Previous PAP test: 09/29 Other history: HPV+ ? Material Received ?? ThinPrep-Vaginal/Cervical ----- ------- Signed (signature on file) Janine Morales Geovanna 11/03/22 1400 ? ----- ------- ? END OF REPORT ? No Concha DO LAB CYTOLOGY ORDERABLES Ana Paula l Result [facility] [address] [place] [address] [phone] * Colonoscopy (02/20/2022) Colonoscopy performed us Historical Provider HEALTH MAINTENANCE Final Result from Last 3 Months or Most Recently Relevant to Health Maintenance Insurance * Guarantor: Christina Cohen Account Type Relation to Patient Date of Phone Billing Address Personal/Family Self [address] [address] [facility] C[facility] * Guarantor: Christina Cohen Account Type Relation to Patient Date of Phone Billing Address Personal/Family Self [address] [address] * Guarantor: Christina Cohen Account Type Relation to Patient Date of Phone Billing Address Personal/Family Self [address] [address] * Guarantor: Christina Cohen Account Type Relation to Patient Date of Phone Billing Address Personal/Family Self [address] [address] Care Teams Tester [employer]ed [employer] Boards Relationship Specialty Start Date End Date Name, MD Sam [address] [place] [address] PCP - General Family Medicine 05/15/15
--- OUTSIDE RECORDS SUMMARY | 2024-03-09 12:42 | XMS_ITS | Encounter Summary ---
Author Organization [employer] Address [address] [facility] 7t [place] [address] Care Team Providers Care Asp Net C Developer Name Role Phone Name, Sam LOPEZ Primary Care Provider [phone] Reason for Visit * Reason Comments Pre-visit Planning SDOH negative, Tobac co screening negative. Encounter Details Date Type Department Care Team ([facility] st Contact Info) Description 03/01/2024 Patient Outreach [facility] CHC MED & PEDS [address] [place], [place] [phone] Name, MD Sam [address] [place] [address] Pre-visit Planning (SDOH negative, Tobacco screening negative. [...] Info) Description 03/22/2024 10:00 AM EST Telemedicine [facility] MEDICINE [address] [place] [address] documented as of this encounter Visit Diagnoses Not on filedocumented in this encounter Additional Health Concerns Assessment Noted Time PHQ-9 Depression Total Score: 1 03/31/19 24 9:26 AM EST documented as of this encounter Care Teams Asp Net C Developer Relationship Specialty Start Date End Date Name, MD Sam [address] [place] [address] PCP - General Family Medicine 05/15/15 documented as of this encounter
--- OUTSIDE RECORDS SUMMARY | 2024-03-09 12:42 | XMS_ITS | Encounter Summary ---
Author Organization [employer] [facility] Address [address] [facility] 7t [place] [address] Care Team Providers Care Revenue Liaison Name Role Phone Name, Sam LOPEZ Primary Care Provider [phone] Encounter Details Date Type Department Care Team (Late Contact Info) Description 07/21/2022 Abstract [facility] MEDICINE [address] [place] [phone] Name, MD Sam [address] [place] [address] Social History Tobacco Use Types Packs/Day Years [...] Info) Description 03/22/2024 10:00 AM EST Telemedicine [facility] MEDICINE [address] [place] [phone] documented as of this encounter Visit Diagnoses Not on filedocumented in this encounter Additional Health Concerns Assessment Noted Time PHQ-9 Depression Total Score: 0 02/24/19 23 1:36 PM EST documented as of this encounter Care Teams Revenue Liaison Relationship Specialty Start Date End Date Name, MD Sam [address] [place] [address] PCP - General Family Medicine 05/15/15 documented as of this encounter
== END 2024-03-09 10:38 | disposition home or self-care (01) ==
PROVIDERS: PCP Internal Medicine Geriatric Medicine; Visit Provider Nurse Practitioner Adult Health
DX: E10.29 Type 1 diabetes mellitus with other diabetic kidney complication (principal)
CPT/HCPCS: 95251; 99214

== ENCOUNTER → 2024-03-09 09:41 | Outpatient (BNVA) | payer MEDICAID, SELFPAY | PROVIDERS: PCP Internal Medicine Geriatric Medicine; Visit Provider Nurse Practitioner Adult Health | DX: E10.29 Type 1 diabetes mellitus with other diabetic kidney complication (principal); Z96.41 Presence of insulin pump (external) (internal); Z79.4 Long term (current) use of insulin | CPT/HCPCS: 82947; 83036; 99212 ==

== ENCOUNTER 2024-03-15 09:15 | Outpatient (REF) | payer MEDICAID, SELFPAY ==
--- OUTSIDE RECORDS SUMMARY | 2024-03-15 09:37 | XMS_ITS | Encounter Summary ---
Author Organization [facility] Address [address] [facility] 7t [place] [address] Care Team Providers Care Seo Specialist Name Role Phone Name, Sam LOPEZ Primary Care Provider [phone] Reason for Visit * Reason Comments Pre-visit Planning SDOH negative, Tobac co screening negative. Encounter Details Date Type Department Care Team ([facility] st Contact Info) Description 03/01/2024 Patient Outreach [facility] CHC MED & PEDS [address] [place], [place] [phone] Name, MD Sam [address] [place] [address] Pre-visit Planning (SDOH negative, Tobacco screening negative. [...] Info) Description 03/22/2024 10:00 AM EST Telemedicine [facility] MEDICINE [address] [place] [address] documented as of this encounter Visit Diagnoses Not on filedocumented in this encounter Additional Health Concerns Assessment Noted Time PHQ-9 Depression Total Score: 1 03/31/19 24 9:26 AM EST documented as of this encounter Care Teams Seo Specialist Relationship Specialty Start Date End Date Name, MD Sam [address] [place] [address] PCP - General Family Medicine 05/15/15 documented as of this encounter
--- OUTSIDE RECORDS SUMMARY | 2024-03-15 09:37 | XMS_ITS | Encounter Summary ---
Author Organization [employer] [facility] Address [address] [facility] 7t [place] [address] Care Team Providers Care Fast Food Shift Lead Name Role Phone Name, Sam LOPEZ Primary Care Provider [phone] Encounter Details Date Type Department Care Team [...] Info) Description 03/22/2024 10:00 AM EST Telemedicine [facility] MEDICINE [address] [place] [address] documented as of this encounter Procedures Procedure Name Priority Date/Time Associated Diagnosis Comments GLUCOSE, WHOLE BLOOD Routine 03/09/2024 10:07 AM EST documented in this encounter Results * (ABNORMAL) Glucose, Whole Blood (03/09/2024 10:07 AM EST) Glucose, Whole Blood 135(H) 60 - 115 mg/dL [facility] Comment:METER #: [id number] 5Testing performed in the Endocrinology Department [address] , [address], [facility]. 03/09/2024 10:0 7 AM EST 03/09/2024 10:10 AM EST us Generic External Data Provider LAB BLOOD ORDERAB LES Final Result [facility] [address] [place] [address] [phone] documented in this encounter Visit Diagnoses Not on filedocumented in this encounter Additional Health Concerns Assessment Noted Time PHQ-9 Depression Total Score: 1 03/31/19 24 9:26 AM EST documented as of this encounter Care Teams Fast Food Shift Lead Relationship Specialty Start Date End Date Name, MD Sam [address] [place] [address] PCP - General Family Medicine 05/15/15 documented as of this encounter
--- OUTSIDE RECORDS SUMMARY | 2024-03-15 09:37 | XMS_ITS | Encounter Summary ---
Author Organization [facility] Address [address] [facility] 7t [place] [address] Care Team Providers Care Instrument Inspector Name Role Phone Name, Sam LOPEZ Primary Care Provider [phone] Reason for Visit * Reason Onset Date Comments Pre-Op 09/21/2023 Encounter Details Date Type Department Care Team ([facility] st Contact Info) Description 09/21/2023 Telephone [facility] [address] [place], [place] [phone] Name, MD Sam [address] [place] [address] Pre-Op Social History Tobacco Use Types Packs/Day [...] pre op appointment on 10/08/23 at 10:30AM [facility]. Appointment reminder letter mailed * Telephone Encounter - Dominick Garcia - 09/21/2023 10:18 AM EDT Date of Surgery: Left EYE 10/18/23 and 11/08/23 RIGHT EYE Surgical procedure being done: CATARACT Surgery on Both EYES Type of anesthesia: MAC Lab needed: No EKG: Yes Surgeon's name: Dr. Kaur Facility name: [facility] Surgeon's office number: [phone] EXT [facility] Surgeon's office fax number: [phone] Contact name (person you spoke with): MELY Last office note from surgeon requested: Yes documented in this encounter Plan of Treatment Upcoming Encounters Date Type Department Care Team ([facility] st Contact Info) Description 03/22/2024 10:00 AM EST Telemedicine [facility] [address] [place] [address] documented as of this encounter Visit Diagnoses Not on filedocumented in this encounter Additional Health Concerns Assessment Noted Time PHQ-9 Depression Total Score: 1 03/31/19 24 9:26 AM EST documented as of this encounter Care Teams Instrument Inspector Relationship Specialty Start Date End Date Name, MD Sam [address] [place] [address] PCP - General Family Medicine 05/15/15 documented as of this encounter
--- OUTSIDE RECORDS SUMMARY | 2024-03-15 09:37 | XMS_ITS | Encounter Summary ---
Author Organization [facility] [facility] Address [address] [place] [address] 7t [place] [address] Care Team Providers Care Covered Buckle Assembler Name Role Phone Name, Sam LOPEZ Primary Care Provider [phone] Encounter Details Date Type Department Care Team (Late Contact Info) Description 02/26/2022 Orders Only [facility] MEDICINE [address] [place] [phone] Georgie Graff LPN Social History Tobacco [...] Description 03/22/2024 10:00 AM EST Telemedicine [facility] [address] [place] [address] [phone] documented as of this encounter Visit Diagnoses Not on filedocumented in this encounter Additional Health Concerns Assessment Noted Time PHQ-9 Depression Total Score: 0 02/24/19 23 1:36 PM EST documented as of this encounter Care Teams Covered Buckle Assembler Relationship Specialty Start Date End Date Name, MD Sam [address] [place] [address] PCP - General Family Medicine 05/15/15 documented as of this encounter
--- OUTSIDE RECORDS SUMMARY | 2024-03-15 09:37 | XMS_ITS | Encounter Summary ---
Author Organization [facility] Address [address] [facility] 7t [place] [address] Care Team Providers Care Bank Vault Attendant Name Role Phone Name, Sam LOPEZ Primary Care Provider [phone] Reason for Visit * Reason Comments Med Refill Encounter Details Date Type Department Care Team ([facility] Contact Info) Description 01/04/2023 Refill [facility] [address] [place], [place] [phone] Name, MD Sam [address] [place] [address] Social History Tobacco Use Types Packs/Day Years [...] 03/22/2024 10:00 AM EST Telemedicine [facility] [address] [place] [address] documented as of this encounter Visit Diagnoses Not on filedocumented in this encounter Additional Health Concerns Assessment Noted Time PHQ-9 Depression Total Score: 0 02/24/19 23 1:36 PM EST documented as of this encounter Care Teams Bank Vault Attendant Relationship Specialty Start Date End Date Name, MD Sam [address] [place] [address] PCP - General Family Medicine 05/15/15 documented as of this encounter
--- OUTSIDE RECORDS SUMMARY | 2024-03-15 09:37 | XMS_ITS | Clinical Summary ---
Author Organization [employer] Address [address] [facility] 7t [place] [address] Care Team Providers Care Six Pack Packer Name Role Phone Name, Sam LOPEZ Primary Care Provider [phone] Allergies No known active allergies Medications atorvastatin [...] 1 diabetes mellitus with other specified complication ([facility]) USE DIRECTED TO CHECK BLOOD SUGAR 4 [...] Data 03/08/2024 10:00 AM EST Office Visit [facility] MEDICINE [address] [place] [phone] NameSam MD Subacute cough (Primary Dx); Essential hypertension; Type 1 diabetes mellitus with other specified complication (CMS/HCC) 03/01/2024 Patient Outreach [facility] CHC MED & PEDS [address] [place], [place] [phone] Sam Gleason MD Pre-visit Planning (SDOH negative, Tobacco screening negative. ) 01/08/2024 Refill [facility] MEDICINE [address] [place] [address] Sam Gleason MD from Last 3 Months Immunizations Name Administration [...] Info) Description 03/22/2024 10:00 AM EST Telemedicine [facility] MEDICINE [address] [place] [address] Health Maintenance Due Date Last Done Comments [...] Additional history exists Eye Exam 07/12/2024 07/13/2023, 05/10, 06/04/2023 Mammogram 07/13/2024 07/14/2023, 06/08, 06/23/2022, Additional [...] Hepatitis A Vaccines Aged Out 11/18/2010, 11/01/19 No longer eligible based on patient's age [...] diabetes mellitus with other specified complication (CMS/HCC) BI MAMMOGRAM SCREENING TOMOSYNTHESIS BILATERAL Routine 07/14/2023 [...] PAP SMEAR Routine 10/23/2022 12:48 PM EDT COLONOSCOPY Routine 02/20/2022 from Last 3 Months or Most Recently Relevant to Health Maintenance Results * (ABNORMAL) Glucose, Whole Blood (03/09/2024 10:07 AM EST) Glucose, Whole Blood 135(H) 60 - 115 mg/dL [facility] Comment:METER #: [id number] 5Testing performed in the Endocrinology Department [address] , [address], [facility]. 03/09/2024 10:0 7 AM EST 03/09/2024 10:10 AM EST us Generic External Data Provider LAB BLOOD ORDERAB LES Final Result [facility] [address] [place] [phone] * XR Chest 2 Views (03/08/2024 10:48 AM EST) Anatomical Region Laterality Modality Chest Radiographic Debi ging 03/08/2024 10:4 8 AM EST Narrative 03/08/2024 11:22 AM EST ?[facility] ?[address] ?[place] [address] ?XRay Report ? Signed ? Patient: Nikolai Dougherty,Christina M ?MR ?? #: [id number] ? : 1965 ?Acct:[id number] ? Age/Sex: 58 / F ?ADM Date: 03/08/24 ? Loc: HO.HHCX ? Attending Dr: Sam Gleason MD ? Ordering Physician: Sam Gleason MD ?? Date of Service: 03/08/24 ?? Procedure(s): XR chest 2V ?? Accession Number(s): [id number] ? cc: Sam Gleason MD ? EXAMINATION: [...] DD/ 1048 ? TD/TT: 03/08/24 1100 ? Furnace Builder: ? Procedure Note Errol, Image - 03/08/[address] [address] XRay Report Signed Patient: Christina Cohen MMR #: [id number] : 1965Acct:[id number] Age/Sex: 58 / FADM Date: 03/08/24 Loc: .HHCX Attending Dr: Sam Gleason MD Ordering Physician: Sam Gleason MD Date of Service: 03/08/24 Procedure(s): XR chest 2V Accession Number(s): [id number] cc: Sam Gleason MD EXAMINATION: XR CHEST [...] 03/08/24 1120 DD/ 1048 TD/TT: 03/08/24 1100 Furnace Builder: us Sam Gleason MD IMG XR PROCEDURES [...] specimen / Unknown 03/08/2024 9:57 AM EST Result Shiva Gleason MD POINT OF CARE TEST ENTER/EDIT OR DERABLES Final Result * BI Mammogram Screening Tomosynthesis Bilateral (07/14/2023 12:00 PM EDT) Anatomical Region Laterality Modality Breast Bilateral Mammography 07/14/2023 12:0 0 PM EDT Narrative 08/10/2023 8:30 AM EDT ? [facility] ? [address] ?[place], [place] [address] ? Mammography Report ? Signed ? Patient: Christina Cohen ?MR ?? #: [id number] ? : 1965 ?Acct:[id number] ? Age/Sex: 57 / F ?ADM Date: 07/14/23 ? Loc: HO.MAMMO ? Attending Dr: Sam Name MD ? Ordering Physician: Name,Sam MD ?Results: 2Benign Fi ?? ndings ? Date of Service: 07/14/23 ?Follow Up: 1 Year From Orig ?? inal Mammogram ? Procedure(s): MM tomosynthesis screening BI ?? Accession Number(s): [id number] ? cc: Name,Sam LOPEZ ? EXAMINATION: ?? [...] 08/10/238[address] ? DD/ 1200 ? TD/TT: ? Furnace Builder: ? Procedure Note Errol, Image - 08/10/2023 [facility] [address] [place] [address] Mammography Report Signed Patient: Christina Cohen MMR #: [id number] : 1965Acct:[id number] Age/Sex: 57 / FADM Date: 07/14/23 Loc: HO.MAMMO Attending Dr: Sam Gleason MD Ordering Physician: Sam Gleasonults: 2Benign Fi ndings Date of Service: 07/14/23Follow Up: 1 Year From Orig inal Mammogram Procedure(s): MM tomosynthesis screening BI Accession Number(s): [id number] cc: Sam Gleason MD EXAMINATION: MM SCREENING [...] in OV> 08/10/23 0826 DD/ 1200 TD/TT: Furnace Builder: us Sam Gleason MD IMG BI PROCEDURES Edited Result - Final * Hm Diabetes Eye Exam (07/13/2023) Eye Exam Normal Normal us Sam Gleason MD HEALTH MAINTENANCE Final Result * Hepatitis C Ab (05/07/2023 8:31 AM EDT) Hepatitis C Antibody Nonreactive Nonreactive [facility] Comment:Antibodies to HCV no t detected; does not exclude early acuteHCV infection. Blood Venous blood specimen / Unknown 05/07/2023 8:31 AM EDT 05/07/2023 8:31 AM EDT us Sam Gleason MD LAB BLOOD ORDERABLES Final Resul t [facility] [address] [place] [phone] [phone] * Lipid Panel, Standard (05/07/2023 8:31 AM EDT) Triglycerides 58 <150 mg/dL [facility] Comment:Desirable Triglyceri de: less than 150 mg/dLBorderline High Triglyceride 150-199 mg/dLHigh Triglyceride: 200-499 mg/dLVery High Triglyceride: greater than or equal to 5OO mg/dL Cholesterol 122 <200 mg/dL [facility] Comment:Desirable Cholestero l: less than 200 mg/dLBorderline High Cholesterol: 200-239 mg/dLHigh Cholesterol: greater than 239 mg/dL LDL Cholesterol Calculated 65 <100 mg/dL [facility] Comment:Desirable LDL: less than 100 mg/dLNear Optimal/Above Optimal LDL: 110- 129 mg/dLBorderline High LDL: 130-159 mg/dLHigh LDL: 160-189 mg/dLVery High LDL: greater than or equal to 190 mg/dL HDL Cholesterol 46 >40 mg/dL [facility] Comment:Desirable HDL: great er than 40 mg/dL Note: This HDL assay may give artificially low results in patients with liver disease. 05/07/2023 8:31 AM EDT 05/07/2023 8:31 AM EDT us Generic External Data Provider LAB BLOOD ORDERAB LES Final Result Performing Organization Address City/[facility]/ZIP Co de Phone Number [facility] [address] [place] [phone] * Albumin, Random Urine W/Creatinine (05/07/2023 8:30 AM EDT) Creatinine, Urine 151.49 mg/dL [facility] Microalbumin Urine 39.0 mg/L [facility] Microalbum Creatinine Ratio Ur 25.7 <30 ug/mg cr [facility] Comment:Albumin/Creatinine R atio Reference Ranges: Normal: < 30 ug/mg creatinine Microalbuminuria: 30 - 300 ug/mg creatinineClinical Albuminuria: > 300 ug/mg creatinine 05/07/2023 8:30 AM EDT 05/07/2023 9:02 AM EDT us Generic External Data Provider LAB URINE ORDERAB LES Final Result [facility] [address] [place] [phone] * HPV mRNA E6/E7 w/Reflex to HPV Genotypes 16, 18/45 (10/23/2022 12:48 PM EDT) HPV nRNA E6/E7 Not Detected Not Detected [facility] Comment:Methodology: Transcr iption-Mediated AmplificationThis assay detects E6/E7 viral messenger RNA (mRNA) from 14high-risk HPV types (16,18,31,33,35,39,45,51,52,56,58,59,66,68).Cervical sources are required for HPV testing.If a vaginal source from a patient who has had atotal hysterectomy with removal of cervix wassubmitted, please contact the testing laboratoryfor alternative testing options.For additional information, please refer tohttp://education.GoToTags/faq/SZO422n7(This link if provided for information/educational purposes only.)THIS TEST WAS PERFORMED AT[facility] [place] [phone] ROSARIO MD HPV mRNA E6/E7 [facility] HPV 16 RNA [facility] HPV 18/45 RNA [facility] 10/23/2022 12:4 8 PM EDT 10/26/2022 9:30 AM EDT No Kern DO LAB CYTOLOGY ORDERABLES Ana Paula l Result [facility] [address] [place] [address] [phone] * Pap Smear (10/23/2022 12:48 PM EDT) 10/23/2022 12:4 8 PM EDT 10/26/2022 9:30 AM EDT Narrative [facility] - 11/03/2022 2:00 PM EDT ----- ------- Name: Nikolai DoughertyChristina Marsh ?Age/Sex: 56/F ? : 1965 Unit#: [id number] ?? Attend Dr: No Kern DO ?Re10/23/22 ?Status: DEP REF ? [facility] ? Disch: ? ----- ------- SPEC : [id number] ?RECD: 10/26/22-929 ? STATUS: ??SOUT ? REQ NUM: [id number] ? JULIUS: 10/23/22-124 ? SUBM DR: No Kern DO ? ENTERED: ??10/26/22-123 ?SP TYPE: Pap Smr ?OTHR DR: ? ORDERED: ??Pap Smear ? Interpretation ?? Satisfactory for evaluation. ?? Negative for intraepithelial lesion or malignancy. ? HPV mRNA E6/E7: ?NOT DETECTED ? This assay detects E6/E7 viral messenger RNA (mRNA) from 14 high-risk HPV types (16, 18, ?? 31, 33, 35, 39, 45, 51, 52, 56, 58, 59, 66, 68) ? HPV testing performed by [employer], [place], [place]. ??See reference laboratory ?? portion of the EMR for entire report. ?Clinical Information LMP: 09/22/22 Previous PAP test: 09/29 Other history: HPV+ ? Material Received ?? ThinPrep-Vaginal/Cervical ----- ------- Signed (signature on file) Janine Morales Geovanna 11/03/22 1400 ? ----- ------- ? END OF REPORT ? No Kern DO LAB CYTOLOGY ORDERABLES Ana Paula gutierrez Result [facility] [address] [place] [phone] [phone] * Hm Colonoscopy (02/20/2022) Colonoscopy performed Historical Provider HEALTH MAINTENANCE Final Result from Last 3 Months or Most Recently Relevant to Health Maintenance [facility] Care Teams Six Pack Packer Relationship Specialty Start Date End Date Name, MD Sam [address] [place] [address] PCP - General Family Medicine 05/15/15
--- OUTSIDE RECORDS SUMMARY | 2024-03-15 09:37 | XMS_ITS | Encounter Summary ---
Author Organization [employer] [facility] Address [address] [facility] 7t [place] [address] Care Team Providers Care Quality Assurance Supervisor Trim Name Role Phone Name, Sam LOPEZ Primary Care Provider [phone] Encounter Details Date Type Department Care Team (Late Contact Info) Description 07/30/2022 Abstract [facility] MEDICINE [address] [place] [phone] Name, MD Sam [address] [place] [phone] Social History Tobacco Use Types Packs/Day Years [...] Info) Description 03/22/2024 10:00 AM EST Telemedicine [facility] MEDICINE [address] [place] [address] [phone] documented as of this encounter Procedures Procedure [...] documented as of this encounter Care Teams Quality Assurance Supervisor Trim Relationship Specialty Start Date End Date Name, MD Sam [address] [facility] [place] [address] PCP - General Family Medicine 05/15/15 documented as of this encounter
--- OUTSIDE RECORDS SUMMARY | 2024-03-15 09:37 | XMS_ITS | Encounter Summary ---
Author Organization [facility] [facility] Address [address] [facility] [address] [place] [address] Care Team Providers Care Orthopedic Surgeon Name Role Phone Name, Sam LOPEZ Primary Care Provider [phone] Encounter Details Date Type Department Care Team (Late Contact Info) Description 07/21/2022 Abstract [facility] MEDICINE [address] [place] [phone] Name, MD Sam [address] [place] [phone] Social History Tobacco Use Types Packs/Day Years [...] 03/22/2024 10:00 AM EST Telemedicine [facility] MEDICINE [address] [place] [address] [phone] documented as of this encounter Visit Diagnoses Not on filedocumented in this encounter Additional Health Concerns Assessment Noted Time PHQ-9 Depression Total Score: 0 02/24/19 23 1:36 PM EST documented as of this encounter Care Teams Orthopedic Surgeon Relationship Specialty Start Date End Date Name, MD Sam [address] [place] [address] PCP - General Family Medicine 05/15/15 documented as of this encounter
--- OUTSIDE RECORDS SUMMARY | 2024-03-15 09:37 | XMS_ITS | Encounter Summary ---
Author Organization [employer] Address [address] [facility] 7t [place] [address] Care Team Providers Care Entry Level Name Role Phone Name, Sam LOPEZ Primary Care Provider [phone] Reason for Visit * Reason Comments Med Refill Encounter Details Date Type Department Care Team ([facility] st Contact Info) Description 11/25/2022 Refill [facility] MED & PEDS [address] [place], [place] [phone] Name, MD Sam [address] [place] [address] Hypertension, unspecified type Social History Tobacco Use [...] Info) Description 03/22/2024 10:00 AM EST Telemedicine [facility] MEDICINE [address] [place] [address] documented as of this encounter Visit Diagnoses Diagnosis Hypertension, unspecified type documented in this encounter Additional Health Concerns Assessment Noted Time PHQ-9 Depression Total Score: 0 02/24/19 23 1:36 PM EST documented as of this encounter Care Teams Entry Level Relationship Specialty Start Date End Date Name, MD Sam [address] [place] [address] PCP - General Family Medicine 05/15/15 documented as of this encounter
--- OUTSIDE RECORDS SUMMARY | 2024-03-15 09:37 | XMS_ITS | Encounter Summary ---
Author Organization [facility] Address [address] [facility] 7t [place] [address] Care Team Providers Care Pail Bailer Name Role Phone Name, Sam LOPEZ Primary Care Provider [phone] Reason for Visit * Reason Comments Diabetes Hypertension Encounter Details Date Type Department Care Team ([facility] Contact Info) Description 03/08/2024 10:00 AM EST Office Visit [facility] MEDICINE [address] [place], [place] [phone] Name, MD Sam [address] [place] [address] Subacute cough (Primary Dx); Essential hypertension; Type [...] 1 diabetes mellitus with other specified complication ([facility]) Comments: Continue current medications as per [facility] Endo. Avoid sweets. Flu vaccine today. Orders: [...] EST Telemedicine [facility] MEDICINE [address] [place] [address] Scheduled Orders Name Type Priority Associated Diagnoses [...] AM EST Narrative 03/08/2024 11:22 AM EST ?[facility] ?[address] ?[place] [address] ?XRay Report ? Signed ? Patient: Nikolai Dougherty,Christina M ?MR ?? #: [id number] ? : 1965 ?Acct:[id number] ? Age/Sex: 58 / F ?ADM Date: /29/25 ? Loc: HO.HHCX ? Attending Dr: Sam Gleason MD ? Ordering Physician: Rosibel,Sam LOPEZ ?? Date of Service: 03/08/24 ?? Procedure(s): XR chest 2V ?? Accession Number(s): [id number] ? cc: Name,Sam LOPEZ ? EXAMINATION: ?? [...] DD/ 1048 ? TD/TT: 03/08/24 1100 ? Automatic Log Cut Off Sawyer: ? Procedure Note Errol, Feliz - 03/08/[address] [address] XRay Report Signed Patient: Christina Cohen MMR #: [id number] : 1965Acct:[id number] Age/Sex: 58 / FADM Date: 03/08/24 Loc: HO.HHCX Attending Dr: Sam Gleason MD Ordering Physician: Sam Gleason MD Date of Service: 03/08/24 Procedure(s): XR chest 2V Accession Number(s): [id number] cc: Sam Gleason MD EXAMINATION: XR CHEST [...] 03/08/24 1120 DD/ 1048 TD/TT: 03/08/24 1100 Automatic Log Cut Off Sawyer: Sam Gleason MD IMG XR PROCEDURES Edited [...] documented as of this encounter Care Teams Pail Bailer Relationship Specialty Start Date End Date Name, MD Sam [address] [place] [address] PCP - General Family Medicine 05/15/15 documented as of this encounter
[2024-03-15 11:28] LABS: Anion Gap 8 (12-20); Blood Urea Nitrogen 14 mg/dL (9-16); Calcium 8.9 mg/dL (8.4-10.2); Carbon Dioxide 27 mmol/L (22-29); Chloride 108 mmol/L (96-108); Cholesterol 211 mg/dL (<200); Estimated Glomerular Filt Rate > 60; Glucose Random 103 mg/dL (60-115); HDL Cholesterol 52 mg/dL (>40); LDL Cholesterol Calculated 144 mg/dL (<100); Potassium 4.2 mmol/L (3.3-5.1); Sodium 139 mmol/L (135-145); Triglycerides 78 mg/dL (<150)
[2024-03-15 11:46] LABS: Creatinine Urine 109.12 mg/dL; Microalbum/Creatinine Ratio Ur 24.7 ug/mg cr (<30)
== END 2024-03-15 09:16 | disposition home or self-care (01) ==
LOC: HO.HHCL 09:15
PROVIDERS: Internal Medicine Geriatric Medicine; Visit Provider Nurse Practitioner Adult Health
DX: I10 Essential (primary) hypertension (principal); E10.29 Type 1 diabetes mellitus with other diabetic kidney complication
CPT/HCPCS: 36415; 80048; 80061; 82043; 82570

== ENCOUNTER 2024-04-12 10:34 | Outpatient (AMB) | payer MEDICAID, SELFPAY ==
--- NOTE | 2024-04-12 11:33 | A.OFFVIS_ITS ---
Intake Intake Visit Reasons: 30 min [employer] Required: Yes [employer] Language: K 9 Police Officer Name: Marisabel [phone] & Melissa [phone] Information Interpreted: non-clinical & clinical Accompanied by: Daughter Allergies No Known Allergies [No Known Allergies*] Allergy (Verified 12/08/23 10:00) HPI Comprehensive Diabetes Asmnt Most Recent Diabetes Results: Microalb/Creat Ratio 24.7 ug/mg cr (<30) 03/15/24 Cholesterol 211 mg/dL (<200) H 03/15/24 HDL Cholesterol 52 mg/dL (>40) 03/15/24 Triglycerides 78 mg/dL (<150) 03/15/24 Creatinine 0.76 mg/dL (0.5-1.4) 03/15/24 Blood Urea Nitrogen 14 mg/dL (9-16) 03/15/24 Sodium 139 mmol/L (135-145) 03/15/24 Potassium 4.2 mmol/L (3.3-5.1) 03/15/24 Chloride 108 mmol/L (96-108) 03/15/24 Carbon Dioxide 27 mmol/L (22-29) 03/15/24 Calcium 8.9 mg/dL (8.4-10.2) 03/15/24 AST 18 U/L (5-31) 02/13/22 ALT 14 U/L (0-31) 02/13/22 Total Protein 7.6 g/dL (6.5-8.0) 02/13/22 Albumin 3.9 g/dL (3.5-5.0) 02/13/22 [facility] Medical History Kinsey's palsy Hypertension Cerebral palsy Depression Insomnia Proteinuria Type 1 diabetes mellitus with other diabetic kidney complication Hyperlipidemia, unspecified Surgical History H/O colonoscopy Hx of section History of appendectomy Family History Father Lung cancer Mother Colon cancer Diabetes HTN (hypertension) CVD (cardiovascular disease) Social History Household Members: Family and Children Household Members Other:: grandchidren Alcohol intake: never Patient Tobacco Use Status: Never used Tobacco Assessment & Plan Assessment & Plan (1) Type 1 diabetes mellitus with other diabetic kidney complication: Code(s): E10.29 - Type 1 diabetes mellitus with other diabetic kidney complication Plan: The following topics were reviewed today: -Dexcom G6 sensor versus Dexcom G7 sensor -importance of bolusing 10-15 minutes prior to meals for best results ??? High Alert: 180 mg/dl ??? Low Alert: 70 mg/dl CGM Data: Patient's average glucose for the past 14 days 155 mg/dL Patient above target 26% Patient at target 74% Patient below target 0% Patient in auto mode 100% Manual mode 0% Basal insulin: 69% Bolus insulin: 31% Patient's last A1c 02/24/2024 7.4% Patient at visit today to upgrade from Dexcom G6 sensor with Omnipod 5 to Dexcom G7 sensor with Omnipod 5. Patient did not bring insulin or pods to today's visit, instructed patient in order to switch sensors she needs to have pods change available at that time. In addition we tried to download Dexcom G7 sylvie, unfortunately patient's cell phone is not compatible with Dexcom G7 sylvie although it is compatible with Dexcom G6 sylvie. Patient given Dexcom G6 sample sensor, message sent to provider to resend prescription for Dexcom G6 sensors until patient's phone is compatible with Dexcom G7 syvlie Safety information: Importance of a backup plan, for manual injections, proper prescriptions and emergency supplies ketone strips, and rules for testing for ketones Patient understands the basic concepts of pump therapy, how to give insulin for meals and snacks, how to troubleshoot for hyper and hypoglycemia. Setting verified by [facility], see changes made to patient's insulin pump settings at today's Basal rate(s) (units/hour) : 12 AM to 7 AM 1.8 units / hr 7 AM? to 6 PM? 1.8 units / hr 6 PM? to 8 PM? 1.9 units / hr 8 PM? to 12 AM? 1.8 units / hr Bolus setting Insulin Carbohydrate Ratio (s) 12 AM? to 12 PM? 1:7.5 12 PM to 5 PM? 1:7 5 PM to 12 AM 1:6 Correction Factor / Sensitivity Factor 12 AM? to 12 PM? 1:30 12 PM? to 8 PM? 1:30 8 PM to 12 AM ? 1:32 Active Insulin Time:? 4 hours Target(s): 12 AM? to 12 AM? 110 Correction threshold: 12 AM? to 12 AM? 110 Coding Level of Care Code Est Pt Level 1 (35270) Diagnoses Type 1 diabetes mellitus with other diabetic kidney complication E10.29
--- OUTSIDE RECORDS SUMMARY | 2024-04-12 12:31 | XMS_ITS | Encounter Summary ---
Author Organization [facility] Address [address] [facility] [address] [place] [address] Care Team Providers Care History Teacher Name Role Phone Name, Sam LOPEZ Primary Care Provider [phone] Encounter Details Date Type Department Care Team (Late st Contact Info) Description 03/15/2024 Orders Only GENERIC EXTERNAL DATA DEPARTMENT Provider, [...] Care Team (Late st Contact Info) Description 06/28/2024 10:30 AM EDT Office Visit [facility] [address] [place] [address] Name, MD Sam [address] [place] [address] documented as of this encounter Procedures Procedure Name Priority Date/Time Associated Diagnosis Comments LIPID PANEL, STANDARD Routine 03/15/2024 9:18 AM EST documented in this encounter Results * (ABNORMAL) Lipid Panel, Standard (03/15/2024 9:18 AM EST) Triglycerides 78 <150 mg/dL [facility] Comment:Desirable Triglyceri de: less than 150 mg/dLBorderline High Triglyceride 150-199 mg/dLHigh Triglyceride: 200-499 mg/dLVery High Triglyceride: greater than or equal to 5OO mg/dL Cholesterol 211(H) <200 mg/dL [facility] Comment:Desirable Cholestero l: less than 200 mg/dLBorderline High Cholesterol: 200-239 mg/dLHigh Cholesterol: greater than 239 mg/dL LDL Cholesterol Calculated 144(H) <100 mg/dL [facility] Comment:Desirable LDL: less than 100 mg/dLNear Optimal/Above Optimal LDL: 110- 129 mg/dLBorderline High LDL: 130-159 mg/dLHigh LDL: 160-189 mg/dLVery High LDL: greater than or equal to 190 mg/dL HDL Cholesterol 52 >40 mg/dL [facility] Comment:Desirable HDL: great er than 40 mg/dL Note: This HDL assay may give artificially low results in patients with liver disease. 03/15/2024 9:18 AM EST 03/15/2024 10:51 AM EST us Generic External Data Provider LAB BLOOD ORDERAB LES Final Result Performing Organization Address City/State/[facility] Co de Phone Number [facility] [address] [place] [address] [phone] documented in this encounter Visit Diagnoses Not on filedocumented in this encounter Additional Health Concerns Assessment Noted Time PHQ-9 Depression Total Score: 1 03/31/19 24 9:26 AM EST documented as of this encounter Care Teams History Teacher Relationship Specialty Start Date End Date Name, MD Sam [address] [place] [address] PCP - General Family Medicine 05/15/15 documented as of this encounter
--- OUTSIDE RECORDS SUMMARY | 2024-04-12 12:31 | XMS_ITS | Encounter Summary ---
Author Organization [facility] Address [address] [place] [address] 7[address] [place] [address] Care Team Providers Care Tiltrotor Crew Chief Name Role Phone Name, Sam LOPEZ Primary Care Provider [phone] Encounter Details Date Type Department Care Team (Late Contact Info) Description 02/26/2022 Orders Only [address] [phone] Georgie Graff LPN Social History Tobacco Use [...] Description 06/28/2024 10:30 AM EDT Office Visit [facility] [address] [place] [address] [phone] Name, MD Sam [address] [place] [address] [phone] documented as of this encounter Visit Diagnoses Not on filedocumented in this encounter Additional Health Concerns Assessment Noted Time PHQ-9 Depression Total Score: 0 02/24/19 23 1:36 PM EST documented as of this encounter Care Teams Tiltrotor Crew Chief Relationship Specialty Start Date End Date Name, MD Sam [address] [place] [address] PCP - General Family Medicine 05/15/15 documented as of this encounter
--- OUTSIDE RECORDS SUMMARY | 2024-04-12 12:31 | XMS_ITS | Encounter Summary ---
Author Organization [facility] Address [address] [facility] 7[address] [place] [address] Care Team Providers Care Breaker Hand Name Role Phone Name, Sam LOPEZ Primary Care Provider [phone] Encounter Details Date Type Department Care Team (Late Contact Info) Description 07/21/2022 Abstract [facility] MED[facility]INE [address] [place] [phone] Name, MD Sam [address] [place] [address] Social History Tobacco Use Types Packs/Day Years [...] Upcoming Encounters Date Type Department Care Team ([facility] Contact Info) Description 06/28/2024 10:30 AM EDT Office Visit [facility] [address] [place] [phone] Name, MD Sam [address] [place] [address] documented as of this encounter Visit Diagnoses Not on filedocumented in this encounter Additional Health Concerns Assessment Noted Time PHQ-9 Depression Total Score: 0 02/24/19 23 1:36 PM EST documented as of this encounter Care Teams Breaker Hand Relationship Specialty Start Date End Date Name, MD Sam [address] [place] [address] PCP - General Family Medicine 05/15/15 documented as of this encounter
--- OUTSIDE RECORDS SUMMARY | 2024-04-12 12:31 | XMS_ITS | Encounter Summary ---
Author Organization [facility] Address [address] [facility] 7t [place] [address] Care Team Providers Care Oven Builder Name Role Phone Name, Sam LOPEZ Primary Care Provider Reason for Visit * Reason Onset Date Comments Pre-Op 09/21/2023 Encounter Details Date Type Department Care Team ([facility] st Contact Info) Description 09/21/[address] [facility] [address] [place], [place] [phone] Name, MD Sam [address] [place] [address] Pre-Op Social History Tobacco Use Types Packs/Day [...] pre op appointment on 10/08/23 at 10:30AM [facility]. Appointment reminder letter mailed * Telephone Encounter - Dominick Garcia - 09/21/2023 10:18 AM EDT Date of Surgery: Left EYE 10/18/23 and 11/08/23 RIGHT EYE Surgical procedure being done: CATARACT Surgery on Both EYES Type of anesthesia: MAC Lab needed: No EKG: Yes Surgeon's name: Dr. Kaur Facility name: [facility] Surgeon's office number: [phone] EXT [facility]ly [facility] Surgeon's office fax number: [phone] Contact name (person you spoke with): MELY Last office note from surgeon requested: Yes documented in this encounter Plan of Treatment Upcoming Encounters Date Type Department Care Team ([facility] st Contact Info) Description 06/28/2024 10:30 AM EDT Office Visit [facility] [address] [place] [phone] Name, MD Sam [address] [place] [address] documented as of this encounter Visit Diagnoses Not on filedocumented in this encounter Additional Health Concerns Assessment Noted Time PHQ-9 Depression Total Score: 1 03/31/19 24 9:26 AM EST documented as of this encounter Care Teams Oven Builder Relationship Specialty Start Date End Date Name, MD Sam [address] [place] [address] PCP - General Family Medicine 05/15/15 documented as of this encounter
--- OUTSIDE RECORDS SUMMARY | 2024-04-12 12:31 | XMS_ITS | Encounter Summary ---
Author Organization [facility] Address [address] [facility] 7t [place] [address] Care Team Providers Care Teenage Babysitter Name Role Phone Name, Sam LOPEZ Primary Care Provider [phone] Reason for Visit * Reason Comments Med Refill Encounter Details Date Type Department Care Team ([facility] st Contact Info) Description 04/10/2024 Refill [facility] [address] [place], [place] [phone] Name, MD Sam [address] [place] [address] Social History Tobacco Use Types Packs/Day Years [...] 10:30 AM EDT Office Visit [facility] [address] [place] [phone] Name, MD Sam [address] [place] [address] documented as of this encounter Visit Diagnoses Not on filedocumented in this encounter Additional Health Concerns Assessment Noted Time PHQ-9 Depression Total Score: 1 03/31/19 24 9:26 AM EST documented as of this encounter Care Teams Teenage Babysitter Relationship Specialty Start Date End Date NameSam MD [address] [place] [phone] PCP - General Family Medicine 05/15/15 documented as of this encounter
--- OUTSIDE RECORDS SUMMARY | 2024-04-12 12:31 | XMS_ITS | Clinical Summary ---
Author Organization [employer] Address [address] [facility] 7t [place] [address] Care Team Providers Care Metrology Specialist Name Role Phone Name, Sam LOPEZ Primary Care Provider [phone] Allergies No known active allergies Medications atorvastatin (Lipitor) 80 MG tablet Take 80 mg by mouth in the morning. Active buPROPion SR (Wellbutrin SR) 200 MG 12 hr tablet TAKE 1 TABLET BY MOUTH TWICE A DAY 2ND DOSE NO LATER THAN 2PM Active clonazePAM (KlonoPIN) 0.5 MG tablet TAKE 1 TABLET BY MOUTH ONCE A DAY NEEDED FOR PANIC ATTACK. UP TO 7 TIMES A MONTH. Active QUEtiapine XR (SEROquel XR) 150 MG 24 hr tablet Take 150 mg by mouth at bedtime. Active prazosin (Minipress) 2 MG capsule TAKE 1 CAPSULE BY MOUTH AT BEDTIME WITH 1 MG CAPSULE FOR TOTAL DOSE = 3 MG. Active sertraline (Zoloft) 100 MG tablet Take 200 mg by mouth in the morning. Active BD Veo Insulin Syringe U/F 31G X 15/64 0.3 ML misc DIRECTED FOUR TIMES A DAY Active Insulin Aspart 100 UNIT/ML solution INJECT 75 UNITS SUBCUTANEOUSLY EVERY DAY Active Lantus SoloStar 100 UNIT/ML pen INJECT 38 UNIT (0.38 ML) SUBCUTANEOUSLY EVERY EVENING Active glucose blood (FREESTYLE LITE) test strip apply 1 by to skin route 4 times every day as directed 05/26/2 022 Active Baqsimi Two Pack 3 MG/DOSE nasal powder 3 mg (one actuation) into a single nostril as needed for BS below 70; if no response, may repeat in 15 minutes using a new intranasal device. 1 each 023 Active FREESTYLE LITE test stripIndication s:Type 1 diabetes mellitus with other specified complication ([facility]) USE DIRECTED TO CHECK BLOOD SUGAR 4 TIMES A DAY 150 strip Active loratadine (Claritin) 10 MG tabletIndicatio ns:Cough, unspecified type,Allergic cough,Allergic reaction, initial encounter Take one tablet every 12 hrs for 3 days then one tablet daily 30 tablet 1 Active losartan (Cozaar) 50 MG tablet Take 1 tablet (50 mg) by mouth Once per day. 30 tablet 025 2025 Active albuterol 108 (90 Base) MCG/ACT inhaler Inhale 2 puffs every 6 (six) hours if needed for wheezing. 18 g 025 2025 Active fluticasone (Flonase) 50 MCG/ACT nasal spray USE 2 SPRAYS IN EACH NOSTRIL IN THE MORNING. SHAKE GENTLY & PRIME BEFORE USE&CLEAN TIP/REPLACE CAP 48 mL Active fluticasone (Flonase) 50 MCG/ACT nasal spray USE 2 SPRAYS IN EACH NOSTRIL IN THE MORNING. SHAKE GENTLY & PRIME BEFORE USE&CLEAN TIP/REPLACE CAP 48 mL 024 2024 Discontinued Active Problems Problem Noted Date Diagnosed Date [...] Encounters Date Type Department Care Team Description 04/10/2024 Refill [facility] [address] [place] [address] Sam Gleason MD 04/04/2024 Telephone [facility] [address] [place] [address] Urszula Zavaleta MA may recalls 03/15/2024 Orders Only GENERIC EXTERNAL DATA DEPARTMENT Provider, Generic External Data 03/09/2024 Orders Only GENERIC EXTERNAL DATA DEPARTMENT Provider, Generic External Data 03/08/2024 10:00 AM EST Office Visit [facility] [address] [place] [address] 10[address] Sam Gleason MD Subacute cough (Primary Dx); Essential hypertension; Type 1 diabetes mellitus with other specified complication ([facility]/HCC) 03/01/2024 Patient Outreach [facility] [address] [place] [address] Sam Gleason MD Pre-visit Planning (SDOH negative, Tobacco screening negative. ) from Last 3 Months Immunizations Name Administration [...] Description 06/28/2024 10:30 AM EDT Office Visit [facility] [address] [place], [place] [phone] Name, MD Sam [address] [place] [address] Health Maintenance Due Date Last Done Comments CT Colonography 1967 FIT DNA/Cologuard 1967 FIT 1967 FOBT 1965 HIV Screening 1965 Sigmoidoscopy 1965 Zoster Vaccines (1 of 2) 12/15/2017 COVID-19 Vaccine ( season) 2023 02/13/2022, 08/01/2021, 03/04/2021, Additional history exists Depression Screening 03/31/2024 03/31/2023, 03/31/19 24 Diabetes: Urine Protein Screening 05/06/2024 05/07/2023, 02/13/2022, 04/12/2020, Additional history exists Diabetes: Hemoglobin A1C 06/06/2024 025, 06/11/2023, 03/31/2023, Additional history exists Eye Exam 07/12/2024 07/13/2023, 05/10, 06/04/2023 Mammogram 07/13/2024 07/14/2023, 0507/2022, 06/23/2022, Additional history exists SDOH Screening 03/01/2025 03/01/2024 Alcohol/Substance Use Screening 03/08/2025 03/08/2024 Diabetes: Foot Exam 03/08/2025 03/08/2024, 03/08/2024, 03/08/2024, Additional history exists Tobacco Screening 03/08/2025 03/08/2024 Lipid Panel 03/15/2025 03/15/2024, 04/09, 02/13/2022, Additional history exists Cervical Cancer Screening 10/23/2025 Pap Smear 10/23/2025 [...] PANEL, STANDARD Routine 03/15/2024 9:18 AM EST BASIC METABOLIC PANEL Routine 03/15/2024 9:18 AM EST Essential hypertension GLUCOSE, WHOLE BLOOD Routine 03/09/2024 10:07 AM [...] EDT Need for hepatitis C screening test ALBUMIN, RANDOM URINE W/CREATININE Routine 05/07/2023 8:30 AM EDT HPV MRNA E6/E7 REFLEX TO HPV 16, 18/45 Routine 10/23/2022 12:48 PM EDT PAP SMEAR Routine 10/23/2022 12:48 PM EDT COLONOSCOPY Routine 02/20/2022 from Last 3 Months or Most Recently Relevant to Health Maintenance Results * (ABNORMAL) Lipid Panel, Standard (03/15/2024 9:18 AM EST) Triglycerides 78 <150 mg/dL [facility] Comment:Desirable Triglyceri de: less than 150 mg/dLBorderline High Triglyceride 150-199 mg/dLHigh Triglyceride: 200-499 mg/dLVery High Triglyceride: greater than or equal to 5OO mg/dL Cholesterol 211(H) <200 mg/dL [facility] Comment:Desirable Cholestero l: less than 200 mg/dLBorderline High Cholesterol: 200-239 mg/dLHigh Cholesterol: greater than 239 mg/dL LDL Cholesterol Calculated 144(H) <100 mg/dL [facility] Comment:Desirable LDL: less than 100 mg/dLNear Optimal/Above Optimal LDL: 110- 129 mg/dLBorderline High LDL: 130-159 mg/dLHigh LDL: 160-189 mg/dLVery High LDL: greater than or equal to 190 mg/dL HDL Cholesterol 52 >40 mg/dL [facility] Comment:Desirable HDL: great er than 40 mg/dL Note: This HDL assay may give artificially low results in patients with liver disease. 03/15/2024 9:18 AM EST 03/15/2024 10:51 AM EST us Generic External Data Provider LAB BLOOD ORDERAB LES Final Result [facility] [address] [place] [phone] * (ABNORMAL) Basic Metabolic Panel (03/15/2024 9:18 AM EST) Sodium 139 135 - 145 mmol/L [facility] Potassium 4.2 3.3 - 5.1 mmol/L [facility] Chloride 108 96 - 108 mmol/L [facility] Carbon Dioxide 27 22 - 29 mmol/L [facility] Anion Gap 8(L) 12 - 20 [facility] Urea Nitrogen (BUN) 14 9 - 16 mg/dL [facility] Creatinine, Serum 0.76 0.5 - 1.4 mg/dL [facility] Estimated Glomerular Filt Rate >60 [facility] Comment:Chronic Kidney Disea se: Estimated GFR < 60 mL/min/1.62u3Cdlxzw Kidney Disease: Estimated GFR < 15 mL/min/1.73m2 Glucose 103 60 - 115 mg/dL [facility] Calcium 8.9 8.4 - 10.2 mg/dL [facility] Blood Venous blood specimen / Unknown 03/15/2024 9:18 AM EST 03/15/2024 10:51 AM EST us Sam Gleason MD LAB BLOOD ORDERABLES Final Resul t Performing Organization Address [facility] Co de Phone Number [facility] [address] [place] [phone] * (ABNORMAL) Glucose, Whole Blood (03/09/2024 10:07 AM EST) Glucose, Whole Blood 135(H) 60 - 115 mg/dL [facility] Comment:METER #: [id number] 5Testing performed in the Endocrinology Department [address] , [address], [facility]. 03/09/2024 10:0 7 AM EST 03/09/2024 10:10 AM EST us Generic External Data Provider LAB BLOOD ORDERAB LES Final Result Performing Organization Address [facility] Co de Phone Number [facility] [address] [place] [address] [phone] * XR Chest 2 Views (03/08/2024 10:48 AM EST) Anatomical Region Laterality Modality Chest Radiographic Debi ging 03/08/2024 10:4 8 AM EST Narrative 03/08/2024 11:22 AM EST ?[facility] ?[address] ?[place] [address] ?XRay Report ? Signed ? Patient: Nikolai Dougherty,Christina M ?MR ?? #: [id number] ? : 1965 ?Acct:[id number] ? Age/Sex: 58 / F ?ADM Date: 01/29/25 ? Loc: HO.HHCX ? Attending Dr: Sam Gleason MD ? Ordering Physician: Sam Gleason MD ?? Date of Service: 03/08/24 ?? Procedure(s): XR chest 2V ?? Accession Number(s): [id number] ? cc: Rosibel,Sam LOPEZ ? EXAMINATION: ?? XR CHEST ? [...] DD/ 1048 ? TD/TT: 03/08/24 1100 ? [employer]: ? Procedure Note Petroster, Image - 03/08/[address] [address] XRay Report Signed Patient: Christina Cohen MMR #: [id number] : 1965Acct:[id number] Age/Sex: 58 / FADM Date: 03/08/24 Loc: HO.HHCX Attending Dr: Sam Gleason MD Ordering Physician: Sam Gleason MD Date of Service: 03/08/24 Procedure(s): XR chest 2V Accession Number(s): [id number] cc: Sam Gleason MD EXAMINATION: XR CHEST [...] 03/08/24 1120 DD/ 1048 TD/TT: 03/08/24 1100 [employer]: us Sam Gleason MD IMG XR PROCEDURES Edited Result - Final * (ABNORMAL) POCT HGB A1C (03/08/2024 9:58 AM EST) Pathologist [facility] Hemoglobin A1C 7.1(A) 4.0 - 6.0 % QC Media Lot # [id number] Lot# Expiration Date 71,626 Blood 03/08/2024 9:58 AM EST us Sam Gleason MD POINT OF CARE TEST ENTER/EDIT OR DERABLES Final Result * POCT Glucose (03/08/2024 9:57 AM EST) Pathologist [facility] Glucose Blood, POC 118 60 - 200 mg/dL QC Media Lot # [id number] Lot# Expiration Date 53,025 Blood Capillary blood specimen / Unknown 03/08/2024 9:57 AM EST us Sam Gleason MD POINT OF CARE TEST ENTER/EDIT OR DERABLES Final Result * BI Mammogram Screening Tomosynthesis Bilateral (07/14/2023 12:00 PM EDT) Anatomical Region Laterality Modality Breast Bilateral Mammography 07/14/2023 12:0 0 PM EDT Narrative 08/10/2023 8:30 AM EDT ? [facility] ? [address] ?[place] [address] ? Mammography Report ? Signed ? Patient: Nikolai Dougherty,Christina M ?MR ?? #: [id number] ? : 1965 ?Acct:[id number] ? Age/Sex: 57 / F ?ADM Date: 06/05/24 ? Loc: HO.MAMMO ? Attending Dr: Sam Gleason MD ? Ordering Physician: Sam Gleason MD ?Results: 2Benign Fi ?? ndings ? Date of Service: 07/14/23 ?Follow Up: 1 Year From Orig ?? inal Mammogram ? Procedure(s): MM tomosynthesis screening BI ?? Accession Number(s): [id number] ? cc: Rosibel,Sam LOPEZ ? EXAMINATION: ?? MM SCREENING DIGITAL [...] 08/10/23825 ? DD/ 1200 ? TD/TT: ? [employer]: ? Procedure Note Donotuseinterpreter, Image - 08/10/2023 Katelyn [facility] [address] [place], [place] [address] Mammography Report Signed Patient: Christina Cohen MMR #: [id number] : 1965Acct:[id number] Age/Sex: 57 / FADM Date: 07/14/23 Loc: HO.MAMMO Attending Dr: Sam Gleason MD Ordering Physician: Sam Gleason MDResults: 2Benign Fi ndings Date of Service: 07/14/23Follow Up: 1 Year From Orig ina Mammogram Procedure(s): MM tomosynthesis screening BI Accession Number(s): [id number] cc: Sam Gleason MD EXAMINATION: MM SCREENING [...] in OV> 08/10/23 0826 DD/ 1200 TD/TT: [employer]: us Sam Gleason MD IMG BI PROCEDURES Edited Result - Final * Hm Diabetes Eye Exam (07/13/2023) Eye Exam Normal Normal us Sam Gleason MD HEALTH MAINTENANCE Final Result * Hepatitis C Ab (05/07/2023 8:31 AM EDT) Hepatitis C Antibody Nonreactive Nonreactive [facility] Comment:Antibodies to HCV no t detected; does not exclude early acuteHCV infection. Blood Venous blood specimen / Unknown 05/07/2023 8:31 AM EDT 05/07/2023 8:31 AM EDT us Sam Gleason MD LAB BLOOD ORDERABLES Final Resul t Performing Organization Address [facility] Co de Phone Number [facility] [address] [place] [address] [phone] * Albumin, Random Urine W/Creatinine (05/07/2023 8:30 AM EDT) Creatinine, Urine 151.49 mg/dL [facility] Microalbumin Urine 39.0 mg/L [facility] Microalbum Creatinine Ratio Ur 25.7 <30 ug/mg cr [facility] Comment:Albumin/Creatinine R atio Reference Ranges: Normal: < 30 ug/mg creatinine Microalbuminuria: 30 - 300 ug/mg creatinineClinical Albuminuria: > 300 ug/mg creatinine 05/07/2023 8:30 AM EDT 05/07/2023 9:02 AM EDT Generic External Data Provider LAB URINE ORDERAB LES Final Result Performing Organization Address City/[facility]/ZIP Co de Phone Number [facility] [address] [place] [phone] * HPV mRNA E6/E7 w/Reflex to HPV Genotypes 16, 18/45 (10/23/2022 12:48 PM EDT) HPV nRNA E6/E7 Not Detected Not Detected [facility] Comment:Methodology: Transcr iption-Mediated AmplificationThis assay detects E6/E7 viral messenger RNA (mRNA) from 14high-risk HPV types (16,18,31,33,35,39,45,51,52,56,58,59,66,68).Cervical sources are required for HPV testing.If a vaginal source from a patient who has had atotal hysterectomy with removal of cervix wassubmitted, please contact the testing laboratoryfor alternative testing options.For additional information, please refer tohttp://education.Brandkids/faq/SVZ927o0(This link if provided for information/educational purposes only.)THIS TEST WAS PERFORMED AT:[facility] [place] [phone] ROSARIO MD HPV mRNA E6/E7 [facility] HPV 16 RNA [facility] HPV 18/45 RNA [facility] 10/23/2022 12:4 8 PM EDT 10/26/2022 9:30 AM EDT No Kern DO LAB CYTOLOGY ORDERABLES Ana Paula l Result [facility] [address] [place] [phone] * Pap Smear (10/23/2022 12:48 PM EDT) 10/23/2022 12:4 8 PM EDT 10/26/2022 9:30 AM EDT Narrative [facility] - 11/03/2022 2:00 PM EDT ----- ------- Name: Nikolai DoughertyChristina Marsh ?Age/Sex: 56/F ? : 1965 Unit#: [id number] ?? Attend Dr: No Kern DO ?Re10/23/22 ?Status: DEP REF ? [facility] ? Disch: ? ----- ------- SPEC : [id number] ?RECD: 10/26/22 ? STATUS: ??SOUT ? REQ NUM: [id number] ? JULIUS: 10/23/22-124 ? SUBM DR: No Kern DO ? ENTERED: ??10/26/22-1231 ?SP TYPE: Pap Smr ?OTHR : ? ORDERED: ??Pap Smear ? Interpretation ?? Satisfactory for evaluation. ?? Negative for intraepithelial lesion or malignancy. ? HPV mRNA E6/E7: ?NOT DETECTED ? This assay detects E6/E7 viral messenger RNA (mRNA) from 14 high-risk HPV types (16, 18, ?? 31, 33, 35, 39, 45, 51, 52, 56, 58, 59, 66, 68) ? HPV testing performed by [facility], [place], [place]. ??See reference laboratory ?? portion of the EMR for entire report. ?Clinical Information LMP: 09/22/22 Previous PAP test: 09/29 Other history: HPV+ ? Material Received ?? ThinPrep-Vaginal/Cervical ----- ------- Signed (signature on file) Janine Morales Geovanna 11/03/22 1400 ? ----- ------- ? END OF REPORT ? us No Kern DO LAB CYTOLOGY ORDERABLES Naa Paula l Result [facility] [address] [place] [phone] * Hm Colonoscopy (02/20/2022) Colonoscopy performed Historical Provider HEALTH MAINTENANCE Final Result from Last 3 Months or Most Recently Relevant to Health Maintenance Insurance [email or web address] Care Teams Metrology Specialist Relationship Specialty Start Date End Date Name, MD Sam [address] [place] [phone] PCP - General Family Medicine 05/15/15
--- OUTSIDE RECORDS SUMMARY | 2024-04-12 12:31 | XMS_ITS | Encounter Summary ---
Author Organization [employer] [facility] Address [address] [facility] 7t [place] [address] Care Team Providers Care Clay Miller Name Role Phone Name, Sam LOPEZ Primary Care Provider [phone] Encounter Details Date Type Department Care Team (Late Contact Info) Description 07/30/2022 Abstract [facility] [address] [place] [address] Name, MD Sam [address] [place] [address] Social History Tobacco Use Types Packs/Day Years [...] Upcoming Encounters Date Type Department Care Team ([facility] Contact Info) Description 06/28/2024 10:30 AM EDT Office Visit [facility] [address] [place] [address] Name, MD Sam [address] [place] [address] documented as of this encounter Procedures Procedure Name Priority Date/Time Associated Diagnosis Comments MAMMOGRAPHY Routine 06/23/2022 1:53 PM EDT documented in this encounter Results * Mammography (06/23/2022 1:53 PM EDT) Mammogram Birads-2 Anatomical Region Laterality Modality Other Narrative 06/23/2022 1:53 PM EDT Recommended routine annual screening us Historical Provider HEALTH MAINTENANCE Final Result documented in this encounter Visit Diagnoses Not on filedocumented in this encounter Additional Health Concerns Assessment Noted Time PHQ-9 Depression Total Score: 0 02/24/19 23 1:36 PM EST documented as of this encounter Care Teams Clay Miller Relationship Specialty Start Date End Date Name, MD Sam [address] [place] [address] PCP - General Family Medicine 05/15/15 documented as of this encounter
--- OUTSIDE RECORDS SUMMARY | 2024-04-12 12:31 | XMS_ITS | Encounter Summary ---
Author Organization [employer] Address [address] [facility] 7t [place] [address] Care Team Providers Care Stoper Name Role Phone Name, Sam LOPEZ Primary Care Provider [phone] Reason for Visit * Reason Onset Date Comments may recalls 04/04/2024 Encounter Details Date Type Department Care Team ([facility] st Contact Info) Description 04/04/2024 Telephone [facility] [address] [place], [place] [phone] Urszula Zavaleta MA may recalls Social History Tobacco Use Types Packs/Day Years [...] encounter Miscellaneous Notes * Telephone Encounter - Urszula Zavaleta MA - 04/04/2024 3:49 PM EST Telephone call to patient to schedule the following recall: Visit type: Follow up Appointment notes: HTN and DM Patient agree to appointment on 06/28/24 at 10:30 AM with Name. documented in this encounter Plan of Treatment Upcoming Encounters Date Type Department Care Team (Late st Contact Info) Description 06/28/2024 10:30 AM EDT Office Visit [facility] [address] [place] [phone] NameSam MD [address] [place] [address] documented as of this encounter Visit Diagnoses Not on filedocumented in this encounter Additional Health Concerns Assessment Noted Time PHQ-9 Depression Total Score: 1 03/31/19 24 9:26 AM EST documented as of this encounter Care Teams Stoper Relationship Specialty Start Date End Date NameSam MD [address] [place] [phone] PCP - General Family Medicine 05/15/15 documented as of this encounter
--- OUTSIDE RECORDS SUMMARY | 2024-04-12 12:31 | XMS_ITS | Encounter Summary ---
Author Organization [employer] Address [address] [facility] 7t [place] [address] Care Team Providers Care Training Manager Name Role Phone Name, Sam LOPEZ Primary Care Provider [phone] Reason for Visit * Reason Comments Med Refill Encounter Details Date Type Department Care Team ([facility] st Contact Info) Description 11/25/2022 Refill [facility] [address] [place], [place] [phone] Name, MD Sam [address] [place] [address] Hypertension, unspecified type Social History Tobacco Use [...] Description 06/28/2024 10:30 AM EDT Office Visit [facility] [address] [place] [phone] Name, MD Sam [address] [place] [address] documented as of this encounter Visit Diagnoses Diagnosis Hypertension, unspecified type documented in this encounter Additional Health Concerns Assessment Noted Time PHQ-9 Depression Total Score: 0 02/24/19 23 1:36 PM EST documented as of this encounter Care Teams Training Manager Relationship Specialty Start Date End Date Name, MD Sam [address] [place] [phone] PCP - General Family Medicine 05/15/15 documented as of this encounter
--- OUTSIDE RECORDS SUMMARY | 2024-04-12 12:31 | XMS_ITS | Encounter Summary ---
Author Organization [employer] [facility] Address [address] [facility] 7t [place] [address] Care Team Providers Care Silk Screen Frame Assembler Name Role Phone Name, Sam LOPEZ Primary Care Provider [phone] Reason for Visit * Reason Comments Med Refill Encounter Details Date Type Department Care Team ([facility] Contact Info) Description 01/04/2023 Refill [facility] [address] [place], [place] [phone] Name, MD Sam [address] [place] [address] Social History Tobacco Use Types Packs/Day Years [...] Description 06/28/2024 10:30 AM EDT Office Visit [facility] [address] [place] [address] Name, MD Sam [address] [place] [address] documented as of this encounter Visit Diagnoses Not on filedocumented in this encounter Additional Health Concerns Assessment Noted Time PHQ-9 Depression Total Score: 0 02/24/19 23 1:36 PM EST documented as of this encounter Care Teams Silk Screen Frame Assembler Relationship Specialty Start Date End Date Name, MD Sam [address] [place] [phone] PCP - General Family Medicine 05/15/15 documented as of this encounter
== END 2024-04-12 11:46 | disposition home or self-care (01) ==
PROVIDERS: PCP Internal Medicine Geriatric Medicine; Visit Provider Registered Nurse Diabetes Educator
DX: E10.29 Type 1 diabetes mellitus with other diabetic kidney complication (principal)

== ENCOUNTER → 2024-04-12 10:34 | Outpatient (BNVA) | payer MEDICAID, SELFPAY | PROVIDERS: PCP Internal Medicine Geriatric Medicine; Visit Provider Registered Nurse Diabetes Educator | DX: E10.29 Type 1 diabetes mellitus with other diabetic kidney complication (principal); Z79.4 Long term (current) use of insulin | CPT/HCPCS: 99211 ==

== ENCOUNTER 2024-06-07 09:48 | Outpatient (AMB) | payer MEDICAID, SELFPAY ==
--- NOTE | 2024-06-07 09:51 | A.OFFVIS_ITS ---
Vital Signs 06/07/24 09:56 Height 5 ft 3 in Weight 202 lb 13.204 oz BMI 35.9 BP 114/76 Blood Pressure Location Rt brachial Position Sitting Pulse 80 Pulse Source Pulse Oximeter Pulse Oximetry (%) 96 Oxygen Delivery Method Room Air Intake Visit Reasons: DM Intake Note: Patient present today to follow up on Type 1 Diabetes Mellitus. Patient receives DME supplies through: [facility] Patient receives pump supplies through: Pharmacy Last Diabetic Eye exam: 06/04/2023 Last Podiatry Visit: Does not see a Reducing Machine Operator Most Recent HgA1C: 6.6%, 06/07/2024 Random Glucose: 120 mg/dL, Today Media Account Executive Required: Yes Media Account Executive Language: Compliance Analyst Services: Media Account Executive Offered & Declined Accompanied by: Daughter Allergies No Known Allergies [No Known Allergies*] Allergy (Verified 12/08/23 10:00) Medication List - Last Reconciled 06/07/24 by Angella Denton NP atorvastatin 80 mg PO DAILY blood-glucose sensor (Dexcom G7 Sensor device) As directed change every 10 days blood-glucose sensor (Dexcom G6 Sensor device) As directed every 10 days blood-glucose transmitter (Dexcom G6 Transmitter device) As directed every 90 days bupropion HCl SR (Wellbutrin SR) 200 mg PO BID clonazepam 0.5 mg PO BID PRN fluticasone propionate 50 mcg/actuation 0 mcg intranasal FreeStyle Lancets (lancets) 4 times a day prn sensor failure or to confirm glucose dispense as 33 gauge if avail NS FreeStyle Lite Meter (blood-glucose meter) As directed NS FreeStyle Lite Strips (blood sugar diagnostic) As directed prn sensor failure, confirm glucose qid NS glucagon 3 mg/actuation (Baqsimi) 3 mg intranasal ONCE 30 days glucagon 3 mg/actuation (Baqsimi) 3 mg intranasal ONCE 30 days MDD 6mg insulin aspart U-100 75 units (0.75 mL) subcut DAILY 30 days insulin glargine (Lantus Solostar U-100 Insulin) 46 units (0.46 mL) subcut DAILY 30 days insulin pump cart,auto,BT,G6/7 (Omnipod 5 G6-G7 Pods (Gen 5) subcutaneous cartridge) USE DIRECTED. CHANGE EVERY 72 HOURS. insulin pump cart,automated,BT (Omnipod 5 G6 Pods (Gen 5) subcutaneous cartridge) DIRECTED CHANGE EVERY 72 HRS insulin syr/ndl U100 half ravinder (BD Veo Insulin Syringe Ultra-Fine (half unit)) As directed four times a day insulin syringe-needle U-100 (BD Insulin Syringe Ultra-Fine) As directed five times a day insulin syringe-needle U-100 (BD Insulin Syringe Ultra-Fine) As directed up to 5 times daily Ketone Urine Test (acetone (urine) test) As directed for glucose over 250 or nausea and vomiting. Follow directions on package prn tid NS lancets (FreeStyle Lancets) As directed lisinopril 2.5 mg PO DAILY pen needle, diabetic ONCE DAILY USE DIRECTED NS prazosin 2 mg PO BEDTIME quetiapine ER 150 mg PO DAILY sertraline 100 mg PO DAILY HPI Comments Details: Patient is 57 yo female with DM type 1 diagnosed at age 27 who presents for visit for continued diabetes management. She was last seen by CDE 01/13/24 and by myself 03/09/24. Hgb A1C 06/07/24 6.6% 03/09/24: 7.4%, A1C 7.1% 12/08/23, A1C 09/07/23 6.9% Dexcom average glucose: 151 14 day continuous glucose monitor report reviewed Glucose Managment indicator 6.9 % Days with CGM data 93 % TIme in ranges: 1 % very high (above 250) 23 % high ?(181-250) 75 % in range ?(70-180] 1 % low (69-55) 0 % ?very low (below 54) Interpretation: Well-controlled with the no significant lows are postprandial increase Diabetes medications: Novolog via Omnipod Classic pump with Dexcom G6. Backup pump failure plan 32 units of Lantus Humalog t.i.d. with meals in usual doses 6-8 units Basal rate(s) (units/hour) : 12 AM to 7 AM 2.1 units / hr 7 AM? to 6 PM? 1.8 units / hr 6 PM? to 8 PM? 1.9 units / hr 8 PM? to 12 AM? 1.8 units / hr Bolus setting Insulin Carbohydrate Ratio (s) 12 AM? to 12 PM? 1:7.5 12 PM to 5 PM? 1:6.5 5 PM to 12 AM 1:6 Correction Factor / Sensitivity Factor 12 AM? to 12 PM? 1:30 12 PM? to 8 PM? 1:30 8 PM to 12 AM ? 1:32 Active Insulin Time:? 4 hours Target(s): 12 AM? to 12 AM? 110 Correction threshold: 12 AM? to 12 AM? 110 She reports stable retinopathy: Last eye exam April 2023 has scheduled next month No Neuropathy: Denies numbness, tingling, pain or cramping in the lower extremities Has nephropathy; 05/07/2023 eGFR>60 microalbumin 39 on low-dose Justin-I Has HLD: On statin most recent LDL 65 05/07/2023 no chest pain, shortness or breath or symptoms of claudication Diet balanced Exercise: walks constantly at home Sees health promotion educator [facility] Medical History (Updated 06/07/24 @ 10:35 by Angella Denton NP) Goiter Kinsey's palsy Hypertension Cerebral palsy Depression Insomnia Proteinuria Type 1 diabetes mellitus with other diabetic kidney complication Hyperlipidemia, unspecified Surgical History H/O colonoscopy Hx of section History of appendectomy Family History Father Lung cancer Mother Colon cancer Diabetes HTN (hypertension) CVD (cardiovascular disease) Social History Household Members: Family and Children Household Members Other:: grandchidren Alcohol intake: never Patient Tobacco Use Status: Never used Tobacco Physical Exam Vital Signs: Last Vital Signs Pulse 80 06/07/24 09:56 BP 114/76 06/07/24 09:56 Pulse Ox 96 06/07/24 09:56 Oxygen Delivery Method Room Air 06/07/24 09:56 BMI result Body Mass Index 35.9 Const Other: Absence of Cushingoid features. Absence of acromegalic features. Neck exam reveals nl size thyroid about 15 gms. No thyroid nodules palpable. Heart S1 S2, Reg R/R. No M/R G. Skin exam reveals absence of vitiligo or acanthosis nigricans. Visual exam of foot performed. No ulcerations or open lesions. No inter digit maceration or fissuring. No onychomycosis, no callouses. Sensation intact to monofilament exam. Vibratory sensation is normal with 128 Hz tuning fork. pulses positive Results AMB Hemoglobin A1c AMB Hemoglobin A1c 6.6 % Last Edit by IVETH Gaona on 06/07/24 10:13 Results Reviewed Results Reviewed: Laboratory Last Values Glucose (Clinic) 120 mg/dL (60-115) H 06/07/24 10:02 Hgb A1c (Clinic) 6.6 % (4.0-6.0) H 06/07/24 10:11 Assessment & Plan Assessment & Plan (1) Type 1 diabetes mellitus with other diabetic kidney complication: Code(s): E10.29 - Type 1 diabetes mellitus with other diabetic kidney complication Category: Medical Plan: 58-year-old type 1 diabetic with stable retinopathy and microalbuminuria with the an A1c of 6.6% on Omnipod insulin pump. Excellent glycemic control. Ketone test strips and glucose nasal spray were sent today in the office. The patient had an opportunity to ask questions regarding treatment plan. The patient expressed understanding and agreement with the above treatment plan. The patient is aware they should contact our office by phone for worsening glucose readings or for any low blood sugars which may warrant a change in diabetes medication. Compliance is encouraged with medications and any followup testing/consults which may have been ordered. Orders: Orders AMB Hemoglobin A1c Today E10.29 - Type 1 diabetes mellitus with other diabetic kidney complication Comprehensive Met. Panel Today E10.29 - Type 1 diabetes mellitus with other diabetic kidney complication Microalbumin, Random (w Creat) Today E10.29 - Type 1 diabetes mellitus with other diabetic kidney complication Thyroid Stimulating Hormone Today E04.9 - Nontoxic goiter, unspecified Lipid Panel Today E10.29 - Type 1 diabetes mellitus with other diabetic kidney complication Free T4 (Free Thyroxine) Today E04.9 - Nontoxic goiter, unspecified Medications: New FreeStyle Lancets (lancets) 4 times a day prn sensor failure or to confirm glucose dispense as 33 gauge if avail 100 ea 1RF NS FreeStyle Lite Strips (blood sugar diagnostic) As directed prn sensor failure, confirm glucose qid 100 ea 1RF NS E10.29 - Type 1 diabetes mellitus with other diabetic kidney complication glucagon 3 mg/actuation (Baqsimi) may repeat in 15 min 3 mg intranasal ONCE 30 days 2 ea 1RF low glucose MDD 6mg FreeStyle Lite Meter (blood-glucose meter) As directed 1 ea 0RF NS E10.29 - Type 1 diabetes mellitus with other diabetic kidney complication Changed From pen needle, diabetic (BD Marisa 2nd Gen Pen Needle) ONCE DAILY USE DIRECTED 50 ea 11RF E11.42 - Type 2 diabetes mellitus with diabetic polyneuropathy To pen needle, diabetic ONCE DAILY USE DIRECTED 50 ea 11RF NS E11.42 - Type 2 diabetes mellitus with diabetic polyneuropathy From acetone (urine) test (Ketone Urine Test strips) As directed for glucose over 250 or nausea and vomiting. Follow directions on package prn tid 50 ea 3RF To Ketone Urine Test (acetone (urine) test) As directed for glucose over 250 or nausea and vomiting. Follow directions on package prn tid 50 ea 3RF NS Refilled glucagon 3 mg/actuation (Baqsimi) [place] once for severe hypoglycemia when patient cannot self-treat with glucose. Afterwards turn on side. May repeat after 15 minutes if patient does not respond. 3 mg intranasal ONCE 30 days 2 ea 6RF unresponsive hypoglycemia [id number] Patient Instructions: Symptoms of DKA (diabetic ketoacidosis): early: frequent urination, dry mouth, fatigue, feeling ill, severe symptoms: ketones in the urine, abdominal pain, nausea, vomiting and weakness. It is important to hydrate with sugar free liquids every 15-30 minutes and bring the sugars down to normal levels. If you are moderate or severe with ketones or unable to bring glucose to less than 200, go to the emergency room. Handout in Palestinian given. Troubleshooting after starting new pod or inserting new insulin set: Occlusion, adhesive tape sensitivity, redness Check BG 2 hours after site change Safety information: Importance of a backup plan, for manual injections, proper prescriptions and emergency supplies ketone strips, and rules for testing for ketones Take 15 carb carbohydrate grams to treat a low sugar (3-4 glucose tablets, half a glass of juice or 15 carbohydrate grams of soft candy such as gummie snacks). Recheck your sugar in 15 minutes and re-treat again with 15 carbohydrate grams if low or still with symptoms. Do not drive a car or operate machinery if you do not know what your blood sugar is, if it is low or in excess of 300. Check your feet daily looking for any signs of infection, drainage, redness, ulceration and seek medical attention if this occurs. Break in shoes gradually and do not wear open-toed shoes or walk stocking footed or barefooted. The patient was counseled to achieve a target A1C of 7% (154 avg). Fasting blood sugars should be 90-130 in the morning and less than 180 two hours after meals. Reviewed the relationship between poor diabetic control and the development of complications. Coding Level of Care Code Est Pt Level 4 (55614) Complex EM visit Add On G2211 Diagnoses Type 1 diabetes mellitus with other diabetic kidney complication E10.29 Time Spent (min) 30 Comment Time spent reviewing labs/provider notes, face to face, chart doc
[2024-06-07 09:56] VITALS: BP 114/76; PULSE 80; O2SAT 96; BMI 35.9
[2024-06-07 10:06] LABS: Glucose, Whole Blood 120 mg/dL (60-115)
--- OUTSIDE RECORDS SUMMARY | 2024-06-07 10:42 | XMS_ITS | Clinical Summary ---
Author Organization [facility] Address [address] [place] [address] Care Team Providers Care Paper Colorer Name Role Phone Name, Sam LOPEZ Primary Care Provider [phone] Allergies No known active allergies Medications atorvastatin (Lipitor) 80 MG tablet Take 80 mg by mouth in the morning. 02/03/20 22 Active buPROPion SR (Wellbutrin SR) 200 MG [...] 1 diabetes mellitus with other specified complication ([facility]) USE DIRECTED TO CHECK BLOOD SUGAR 4 TIMES A DAY 150 strip 03/08/19 24 Active loratadine (Claritin) 10 MG tabletIndication s:Cough, unspecified type,Allergic cough,Allergic reaction, initial encounter Take one tablet every 12 hrs for 3 days then one tablet daily 30 tablet 1 11/15/19 24 Active losartan (Cozaar) 50 MG tablet Take 1 tablet (50 mg) by mouth Once per day. 30 tablet 03/08/19 25 026 Active albuterol 108 (90 Base) MCG/ACT inhaler Inhale 2 puffs every 6 (six) hours if needed for wheezing. 18 g 03/08/19 25 026 Active fluticasone (Flonase) 50 MCG/ACT nasal spray USE 2 SPRAYS IN EACH NOSTRIL IN THE MORNING. SHAKE GENTLY & PRIME BEFORE USE&CLEAN TIP/REPLACE CAP 48 mL 04/11/19 25 Active Active Problems Problem Noted Date Diagnosed Date [...] Encounters Date Type Department Care Team Description 06/07/2024 Orders Only GENERIC EXTERNAL DATA DEPARTMENT Provider, Generic External Data 04/21/2024 Population Health Risk Score [facility] (C[facility]) Department [address] [address] Provider, Population Health Generic 04/10/2024 Refill [facility] [address] [place] [address] Rosibel, MD Sam 04/04/2024 Telephone [facility] [address] [place] [address] Urszula Zavaleta [place] may recalls 03/15/2024 Orders Only GENERIC EXTERNAL [...] Description 06/28/2024 10:30 AM EDT Office Visit [facility] [address] [facility] [place] [address] Name, MD Sam Eyal [facility] [place] [address] Health Maintenance Due Date Last Done Comments [...] Associated Diagnosis Comments GLUCOSE, WHOLE BLOOD Routine 06/07/2024 10:02 AM EDT LIPID PANEL, STANDARD Routine 03/15/2024 9:18 AM EST BASIC METABOLIC PANEL Routine 03/15/2024 9:18 AM EST Essential hypertension GLUCOSE, WHOLE BLOOD Routine 03/09/2024 10:07 AM EST POCT GLYCATED HEMOGLOBIN, TOTAL Routine 03/08/2024 9:58 [...] Maintenance Results * (ABNORMAL) Glucose, Whole Blood (06/07/2024 10:02 AM EDT) Only the most recent of2 resultswithin the time period is included. Glucose, Whole Blood 120(H) 60 - 115 mg/dL [facility] Comment:METER #: [id number] 5Testing performed in the Endocrinology Department [address] , [address], [facility]. 06/07/2024 10:0 2 AM EDT 06/07/2024 10:06 AM EDT us Generic External Data Provider LAB BLOOD ORDERAB LES Final Result [facility] [address] [place] [phone] * (ABNORMAL) Lipid Panel, Standard (03/15/2024 9:18 AM EST) Triglycerides 78 <150 mg/dL [facility] Comment:Desirable Triglyceri de: less than 150 mg/dLBorderline High Triglyceride 150-199 mg/dLHigh Triglyceride: 200-499 mg/dLVery High Triglyceride: greater than or equal to 5OO mg/dL Cholesterol 211(H) <200 mg/dL [facility] Comment:Desirable Cholestero l: less than 200 mg/dLBorderline High Cholesterol: 200-239 mg/dLHigh Cholesterol: greater than 239 mg/dL LDL Cholesterol Calculated 144(H) <100 mg/dL [facility] Comment:Desirable LDL: less than 100 mg/dLNear Optimal/Above Optimal LDL: 110- 129 mg/dLBorderline High LDL: 130-159 mg/dLHigh LDL: 160-189 mg/dLVery High LDL: greater than or equal to 190 mg/dL HDL Cholesterol 52 >40 mg/dL [facility] Comment:Desirable HDL: great er than 40 mg/dL Note: This HDL assay may give artificially low results in patients with liver disease. 03/15/2024 9:18 AM EST 03/15/2024 10:51 AM EST us Generic External Data Provider LAB BLOOD ORDERAB LES Final Result [facility] [address] [place] [phone] * (ABNORMAL) Basic Metabolic Panel (03/15/2024 9:18 AM EST) Sodium 139 135 - 145 mmol/L [facility] Potassium 4.2 3.3 - 5.1 mmol/L [facility] Chloride 108 96 - 108 mmol/L [facility] Carbon Dioxide 27 22 - 29 mmol/L [facility] Anion Gap 8(L) 12 - 20 [facility] Urea Nitrogen (BUN) 14 9 - 16 mg/dL [facility] Creatinine, Serum 0.76 0.5 - 1.4 mg/dL [facility] Estimated Glomerular Filt Rate >60 [facility] Comment:Chronic Kidney Disea se: Estimated GFR < 60 mL/min/1.13t1Balivw Kidney Disease: Estimated GFR < 15 mL/min/1.73m2 Glucose 103 60 - 115 mg/dL [facility] Calcium 8.9 8.4 - 10.2 mg/dL [facility] Blood Venous blood specimen / Unknown 03/15/2024 9:18 AM EST 03/15/2024 10:51 AM EST us Sam Gleason MD LAB BLOOD ORDERABLES Final Resul t [facility] [address] [facility] [place] [address] [phone] * (ABNORMAL) POCT HGB A1C (03/08/2024 9:58 AM EST) Hemoglobin A1C 7.1(A) 4.0 - 6.0 % QC Media Lot # [id number] Lot# Expiration Date 62 Blood 03/08/2024 9:58 AM EST Sam Gleason MD POINT OF CARE TEST ENTER/EDIT OR DERABLES Final Result * BI Mammogram Screening Tomosynthesis Bilateral (07/14/2023 12:00 PM EDT) Anatomical Region Laterality Modality Breast Bilateral Mammography 07/14/2023 12:0 0 PM EDT Narrative 08/10/2023 8:30 AM EDT ? [facility] ? [address] ?[place] [address] ? Mammography Report ? Signed ? Patient: Christina Cohen ?MR ?? #: [id number] ? : 1965 ?Acct:[id number] ? Age/Sex: 57 / F ?ADM Date: 06/05/24 ? Loc: HO.MAMMO ? Attending Dr: Sam Gleason MD ? Ordering Physician: Sam Gleason MD ?Results: 2Benign Fi ?? ndings ? Date of Service: 07/14/23 ?Follow Up: 1 Year From Orig ?? inal Mammogram ? Procedure(s): MM tomosynthesis screening BI ?? Accession Number(s): [id number] ? cc: Rosibel,Sam LOPEZ ? EXAMINATION: ?? MM SCREENING DIGITAL BREAST TOMOSYNTHESIS, BILATERAL ? CLINICAL INFORMATION: ? Screening. Asymptomatic. ? COMPARISON: ?? Mammography: This study is compared with prior exams dating back to ?? 2018. ? TECHNIQUE: ?? Digital breast tomosynthesis is [...] 08/10/23825 ? DD/ 1200 ? TD/TT: ? Foundry Laborer Coreroom: ? Procedure Note [place], Image - 08/10/2023 Katelyn [facility] [address] [place], [place] [address] Mammography Report Signed Patient: Christina Cohen MMR #: [id number] : 1965Acct:[id number] Age/Sex: 57 / FADM Date: 07/14/23 Loc: HO.MAMMO Attending Dr: Sam Gleason MD Ordering Physician: Sam Gleason MDResults: 2Benign Fi ndings Date of Service: 07/14/23Follow Up: 1 Year From Orig inal Mammogram Procedure(s): MM tomosynthesis screening BI Accession Number(s): [id number] cc: Sam Gleason MD EXAMINATION: MM SCREENING [...] in OV> 08/10/23 0826 DD/ 1200 TD/TT: Foundry Laborer Coreroom: Sam Gleason MD IMG BI PROCEDURES Edited Result - Final * Hm Diabetes Eye Exam (07/13/2023) Eye Exam Normal Normal us Sam Gleason MD HEALTH MAINTENANCE Final Result * Hepatitis C Ab (05/07/2023 8:31 AM EDT) Hepatitis C Antibody Nonreactive Nonreactive [facility] Comment:Antibodies to HCV no t detected; does not exclude early acuteHCV infection. Blood Venous blood specimen / Unknown 05/07/2023 8:31 AM EDT 05/07/2023 8:31 AM EDT us Sam Gleason MD LAB BLOOD ORDERABLES Final Resul t Performing Organization Address [facility] Phone Number [facility] [address] [place] [phone] * Albumin, Random Urine W/Creatinine (05/07/2023 8:30 AM EDT) Creatinine, Urine 151.49 mg/dL [facility] Microalbumin Urine 39.0 mg/L [facility] Microalbum Creatinine Ratio Ur 25.7 <30 ug/mg cr [facility] Comment:Albumin/Creatinine R atio Reference Ranges: Normal: < 30 ug/mg creatinine Microalbuminuria: 30 - 300 ug/mg creatinineClinical Albuminuria: > 300 ug/mg creatinine 05/07/2023 8:30 AM EDT 05/07/2023 9:02 AM EDT Generic External Data Provider LAB URINE ORDERAB LES Final Result Performing Organization Address [facility] [employer] Phone Number [facility] [address] [place] [address] [phone] * HPV mRNA E6/E7 w/Reflex to HPV Genotypes 16, 18/45 (10/23/2022 12:48 PM EDT) HPV nRNA E6/E7 Not Detected Not Detected [facility] Comment:Methodology: Transcr iption-Mediated AmplificationThis assay detects E6/E7 viral messenger RNA (mRNA) from 14high-risk HPV types (16,18,31,33,35,39,45,51,52,56,58,59,66,68).Cervical sources are required for HPV testing.If a vaginal source from a patient who has had atotal hysterectomy with removal of cervix wassubmitted, please contact the testing laboratoryfor alternative testing options.For additional information, please refer [email or web address]/USY279i0(This link if provided for information/educational purposes only.)THIS TEST WAS PERFORMED AT:[employer] [place] [phone] ROSARIO MD HPV mRNA E6/E7 TNP [facility] HPV 16 RNA [facility] HPV 18/45 RNA [facility] 10/23/2022 12:4 8 PM EDT 10/26/2022 9:30 AM EDT us No Kern DO LAB CYTOLOGY ORDERABLES Ana Paula gutierrez Result [facility] [address] [place] [phone] * Pap Smear (10/23/2022 12:48 PM EDT) 10/23/2022 12:4 8 PM EDT 10/26/2022 9:30 AM EDT Narrative [facility] - 11/03/2022 2:00 PM EDT ----- ------- Name: Christina Cohen ?Age/Sex: 56/F ? : 1965 Unit#: [id number] ?? Attend Dr: No Kern DO ?Re10/23/22 ?Status: DEP REF ? Location: HO.CLNP ? Disch: ? ----- ------- SPEC : [id number] ?RECD: 10/26/22-929 ? STATUS: ??SOUT ? REQ NUM: [id number] ? JULIUS: 10/23/22-1248 ? SUBM DR: No Kern DO ? ENTERED: ??10/26/22-1231 ?SP TYPE: Pap Smr ?OTHR DR: ? ORDERED: ??Pap Smear ? Interpretation ?? Satisfactory for evaluation. ?? Negative for intraepithelial lesion or malignancy. ? HPV mRNA E6/E7: ?NOT DETECTED ? This assay detects E6/E7 viral messenger RNA (mRNA) from 14 high-risk HPV types (16, 18, ?? 31, 33, 35, 39, 45, 51, 52, 56, 58, 59, 66, 68) ? HPV testing performed by [facility], [place], [place]. ??See reference laboratory ?? portion of the EMR for entire report. ?Clinical Information LMP: 09/22/22 Previous PAP test: 09/29 Other history: HPV+ ? Material Received ?? ThinPrep-Vaginal/Cervical ----- ------- Signed (signature on file) Janine Morales Geovanna 11/03/22 1400 ? ----- ------- ? END OF REPORT ? us No Kern DO LAB CYTOLOGY ORDERABLES Ana Paula gutierrez Result [facility] [address] [place] [phone] * Colonoscopy (02/20/2022) Colonoscopy performed us Historical Provider HEALTH MAINTENANCE Final Result from Last 3 Months or Most Recently Relevant to Health Maintenance Insurance [address] [place], [place] [address] C[employer] Care Teams Paper Colorer Relationship Specialty Start Date End Date Name, MD Sam [address] [place] [phone] PCP - General Family Medicine 05/15/15
--- OUTSIDE RECORDS SUMMARY | 2024-06-07 10:42 | XMS_ITS | Encounter Summary ---
Author Organization [facility] Address [address] [place] [address] Care Team Providers Care Exceptional Needs Teacher Name Role Phone Name, Sam LOPEZ Primary Care Provider [phone] Encounter Details Date Type Department Care Team (Late st Contact Info) Description 06/07/2024 Orders Only GENERIC EXTERNAL DATA [...] Description 06/28/2024 10:30 AM EDT Office Visit [facility] [address] [place] [address] NameSam MD [address] [place] [address] documented as of this encounter Procedures Procedure Name Priority Date/Time Associated Diagnosis Comments GLUCOSE, WHOLE BLOOD Routine 06/07/2024 10:02 AM EDT documented in this encounter Results * (ABNORMAL) Glucose, Whole Blood (06/07/2024 10:02 AM EDT) Glucose, Whole Blood 120(H) 60 - 115 mg/dL [facility] Comment:METER #: [id number] 5Testing performed in the Endocrinology Department [address], [address], [facility]. 06/07/2024 10:0 2 AM EDT 06/07/2024 10:06 AM EDT us Generic External Data Provider LAB BLOOD ORDERAB LES Final Result [facility] [address] [place] [phone] documented in this encounter Visit Diagnoses Not on filedocumented in this encounter Additional Health Concerns Assessment Noted Time PHQ-9 Depression Total Score: 1 03/31/19 24 9:26 AM EST documented as of this encounter Care Teams Exceptional Needs Teacher Relationship Specialty Start Date End Date Name, MD Sam [address] [place] [address] PCP - General Family Medicine 05/15/15 documented as of this encounter
--- OUTSIDE RECORDS SUMMARY | 2024-06-07 10:42 | XMS_ITS | Encounter Summary ---
Author Organization [employer] [facility] Address [address] [place] [address] 7t [place] [address] Care Team Providers Care Supervisor [employer] Name Role Phone Name, Sam LOPEZ Primary Care Provider Encounter Details Date Type Department Care Team (Late Contact Info) Description 02/26/2022 Orders Only [address] [phone] Georgie Graff LPN Social History Tobacco Use [...] Description 06/28/2024 10:30 AM EDT Office Visit [facility] MEDICINE [address] [place] [address] [phone] Name, MD Sam [address] [place] [address] [phone] documented as of this encounter Visit Diagnoses Not on filedocumented in this encounter Additional Health Concerns Assessment Noted Time PHQ-9 Depression Total Score: 0 02/24/19 23 1:36 PM EST documented as of this encounter Care Teams Supervisor [employer] Relationship Specialty Start Date End Date Name, MD Sam [address] [place] [address] PCP - General Family Medicine 05/15/15 documented as of this encounter
--- OUTSIDE RECORDS SUMMARY | 2024-06-07 10:42 | XMS_ITS | Encounter Summary ---
Author Organization [facility] Address [address] [facility] 7t [place] [address] Care Team Providers Care Central Processing Technician Name Role Phone Name, Sam LOPEZ Primary Care Provider [phone] Reason for Visit * Reason Comments Med Refill Encounter Details Date Type Department Care Team ([facility] Contact Info) Description 01/04/2023 Refill [facility] MEDICINE [address] [place], [place] [phone] Name, MD Sam [address] [place] [address] Social History Tobacco Use Types Packs/Day Years [...] 10:30 AM EDT Office Visit [facility] MEDICINE [address] [place] [address] Name, MD Sam [address] [place] [address] documented as of this encounter Visit Diagnoses Not on filedocumented in this encounter Additional Health Concerns Assessment Noted Time PHQ-9 Depression Total Score: 0 02/24/19 23 1:36 PM EST documented as of this encounter Care Teams Central Processing Technician Relationship Specialty Start Date End Date Name, MD Sam [address] [place] [address] PCP - General Family Medicine 05/15/15 documented as of this encounter
--- OUTSIDE RECORDS SUMMARY | 2024-06-07 10:42 | XMS_ITS | Encounter Summary ---
Author Organization [employer] [facility] Address [address] [facility] 7t [place] [address] Care Team Providers Care On Air Announcer Name Role Phone Name, Sam LOPEZ Primary Care Provider [phone] Encounter Details Date Type Department Care Team (Late Contact Info) Description 07/21/2022 Abstract [facility] MEDICINE [address] [place] [address] Name, MD Sam [address] [place] [address] Social History Tobacco Use Types Packs/Day Years [...] Upcoming Encounters Date Type Department Care Team ([facility] Contact Info) Description 06/28/2024 10:30 AM EDT Office Visit [facility] MEDICINE [address] [place] [address] Name, MD Sam [address] [place] [address] documented as of this encounter Visit Diagnoses Not on filedocumented in this encounter Additional Health Concerns Assessment Noted Time PHQ-9 Depression Total Score: 0 02/24/19 23 1:36 PM EST documented as of this encounter Care Teams On Air Announcer Relationship Specialty Start Date End Date Name, MD Sam [address] [place] [address] PCP - General Family Medicine 05/15/15 documented as of this encounter
--- OUTSIDE RECORDS SUMMARY | 2024-06-07 10:42 | XMS_ITS | Encounter Summary ---
Author Organization [employer] Address [address] [facility] 7t [place] [address] Care Team Providers Care Nurse Special Name Role Phone Name, Sam LOPEZ Primary Care Provider [phone] Reason for Visit * Reason Comments Med Refill Encounter Details Date Type Department Care Team ([facility] st Contact Info) Description 11/25/2022 Refill [facility] MED & PEDS [address] [place], [place] [phone] Name, MD Sam [address] [place] [address] Hypertension, unspecified type Social History Tobacco Use [...] Description 06/28/2024 10:30 AM EDT Office Visit [facility] MEDICINE [address] [place] [phone] Name, MD Sam [address] [place] [address] documented as of this encounter Visit Diagnoses Diagnosis Hypertension, unspecified type documented in this encounter Additional Health Concerns Assessment Noted Time PHQ-9 Depression Total Score: 0 02/24/19 23 1:36 PM EST documented as of this encounter Care Teams Nurse Special Relationship Specialty Start Date End Date Name, MD Sam [address] [place] [address] PCP - General Family Medicine 05/15/15 documented as of this encounter
--- OUTSIDE RECORDS SUMMARY | 2024-06-07 10:42 | XMS_ITS | Encounter Summary ---
Author Organization [email or web address] [facility] Address [address] [facility] 7t [place] [address] Care Team Providers Care On Site Coordinator Name Role Phone Name, Sam LOPEZ Primary Care Provider [phone] Encounter Details Date Type Department Care Team (Late Contact Info) Description 07/30/2022 Abstract [facility] MEDICINE [address] [place] [phone] Name, MD Sam [address] [place] [address] Social History Tobacco Use Types Packs/Day Years [...] Upcoming Encounters Date Type Department Care Team ([facility] Contact Info) Description 06/28/2024 10:30 AM EDT Office Visit [facility] MEDICINE [address] [place] [address] Name, MD Sam [address] [place] [address] documented as of this encounter Procedures Procedure [...] as of this encounter Care Teams On Site Coordinator Relationship Specialty Start Date End Date Name, MD Sam [address] [place] [address] PCP - General Family Medicine 05/15/15 documented as of this encounter
--- OUTSIDE RECORDS SUMMARY | 2024-06-07 10:42 | XMS_ITS | Encounter Summary ---
Author Organization [facility] Address [address] [facility] 7t [place] [address] Care Team Providers Care Bar Roller Name Role Phone Name, Sam LOPEZ Primary Care Provider Reason for Visit * Reason Onset Date Comments Pre-Op 09/21/2023 Encounter Details Date Type Department Care Team ([facility] st Contact Info) Description 09/21/2023 Telephone [facility] MEDICINE [address] [place], [place] [phone] Name, MD Sam [address] [place] [address] Pre-Op Social History Tobacco Use Types Packs/Day [...] pre op appointment on 10/08/23 at 10:30AM [facility]. Appointment reminder letter mailed * Telephone Encounter - Dominick Garcia - 09/21/2023 10:18 AM EDT Date of Surgery: Left EYE 10/18/23 and 11/08/23 RIGHT EYE Surgical procedure being done: CATARACT Surgery on Both EYES Type of anesthesia: MAC Lab needed: No EKG: Yes Surgeon's name: Dr. Kaur Facility name: [facility] Surgeon's office number: [phone] EXT [facility] Surgeon's office fax number: [phone] Contact name (person you spoke with): MELY Last office note from surgeon requested: Yes documented in this encounter Plan of Treatment Upcoming Encounters Date Type Department Care Team ([facility] st Contact Info) Description 06/28/2024 10:30 AM EDT Office Visit [facility] MEDICINE [address] [place] [phone] Name, MD Sam [address] [place] [address] documented as of this encounter Visit Diagnoses Not on filedocumented in this encounter Additional Health Concerns Assessment Noted Time PHQ-9 Depression Total Score: 1 03/31/19 24 9:26 AM EST documented as of this encounter Care Teams Bar Roller Relationship Specialty Start Date End Date Name, MD aSm [address] [place] [address] PCP - General Family Medicine 05/15/15 documented as of this encounter
== END 2024-06-07 10:43 | disposition home or self-care (01) ==
LOC: HO.ENCR 09:49
PROVIDERS: PCP Internal Medicine Geriatric Medicine; Visit Provider Nurse Practitioner Adult Health
DX: E10.29 Type 1 diabetes mellitus with other diabetic kidney complication (principal)
CPT/HCPCS: 99214

== ENCOUNTER → 2024-06-07 09:48 | Outpatient (BNVA) | payer MEDICAID, SELFPAY | PROVIDERS: PCP Internal Medicine Geriatric Medicine; Visit Provider Nurse Practitioner Adult Health | DX: Z46.81 Encounter for fitting and adjustment of insulin pump (principal); E10.29 Type 1 diabetes mellitus with other diabetic kidney complication | CPT/HCPCS: 82947; 83036; 99212 ==

== ENCOUNTER 2024-07-17 11:58 | Outpatient (REF) | payer MEDICAID, SELFPAY ==
--- OUTSIDE RECORDS SUMMARY | 2024-07-17 13:46 | XMS_ITS | Encounter Summary ---
Author Organization [employer] Address [address] [facility] [address] [place] [address] Care Team Providers Care Cryptography Teacher Name Role Phone Name, Sam LOPEZ Primary Care Provider Reason for Visit * Reason Comments Med Refill Encounter Details Date Type Department Care Team ([facility] st Contact Info) Description 11/25/2022 Refill [facility] CHC MED & PEDS [address] [place], [place] [phone] Name, MD Sam [address] [place] [address] Hypertension, unspecified type Social History Tobacco Use [...] as of this encounter Plan of Treatment Not on file documented as of this encounter Visit Diagnoses Diagnosis Hypertension, unspecified type documented in this encounter Additional Health Concerns Assessment Noted Time PHQ-9 Depression Total Score: 0 02/24/19 23 1:36 PM EST documented as of this encounter Care Teams Cryptography Teacher Relationship Specialty Start Date End Date Name, MD Sam [address] [place] [address] PCP - General Family Medicine 05/15/15 documented as of this encounter
== END 2024-07-17 11:59 | disposition home or self-care (01) ==
LOC: HO.MAMMO 11:58
PROVIDERS: PCP Internal Medicine Geriatric Medicine; Visit Provider Internal Medicine Geriatric Medicine
DX: Z12.31 Encounter for screening mammogram for malignant neoplasm of breast (principal)
CPT/HCPCS: 77063; 77067

== ENCOUNTER → 2024-07-17 12:00 | Outpatient (BNV) | payer MEDICAID, SELFPAY | PROVIDERS: PCP Internal Medicine Geriatric Medicine; Visit Provider Internal Medicine | DX: Z12.31 Encounter for screening mammogram for malignant neoplasm of breast (principal) | CPT/HCPCS: 77063; 77067 ==

== ENCOUNTER 2024-10-02 12:24 | Outpatient (AMB) | payer MEDICAID, SELFPAY ==
[2024-10-02 12:29] VITALS: BP 150/80; PULSE 85; O2SAT 98; BMI 36.0
--- NOTE | 2024-10-02 12:29 | MHC.OFFVIS ---
Vital Signs 10/02/24 12:29 Height 5 ft 3 in Weight 203 lb 7.787 oz BMI 36.0 BP 150/80 H Blood Pressure Location Lt brachial Position Sitting Pulse 85 Pulse Source Pulse Oximeter Pulse Oximetry (%) 98 Oxygen Delivery Method Room Air Intake Visit Reasons: T1DM Intake Note: Patient present today for Type 1 Diabetes Mellitus Last Diabetic eye exam: 2023 and has appt on 10/10/24 Last Podiatry Visit: Doesn't have one Random Glucose: 198 mg/dl HgA1C: 7.1% Bulkhead Carpenter Required: Yes Bulkhead Carpenter Language: Supervisor Mill Services: Bulkhead Carpenter Present Bulkhead Carpenter Name: Marisabel [phone] Information Interpreted: non-clinical & clinical Accompanied by: Daughter Allergies No Known Allergies (No Known Allergies*) Allergy (Verified 10/02/24 12:35) Medication List - Last Reconciled 10/02/24 by Antonia Woodward MD atorvastatin 80 mg PO DAILY 90 days blood-glucose sensor (Dexcom G7 Sensor device) As directed change every 10 days Held on 04/12/24. Instructions: Doctor's Order blood-glucose sensor (Dexcom G6 Sensor device) As directed every 10 days blood-glucose transmitter (Dexcom G6 Transmitter device) As directed every 90 days bupropion HCl SR (Wellbutrin SR) 200 mg PO BID clonazepam 0.5 mg PO BID PRN fluticasone propionate 50 mcg/actuation 0 mcg intranasal FreeStyle Lancets (lancets) 4 times a day prn sensor failure or to confirm glucose dispense as 33 gauge if avail NS FreeStyle Lite Meter (blood-glucose meter) As directed NS FreeStyle Lite Strips (blood sugar diagnostic) As directed prn sensor failure, confirm glucose qid NS glucagon 3 mg/actuation (Baqsimi) 3 mg intranasal ONCE 30 days glucagon 3 mg/actuation (Baqsimi) 3 mg intranasal ONCE 30 days MDD 6mg insulin aspart U-100 75 units (0.75 mL) subcut DAILY 30 days insulin glargine (Lantus Solostar U-100 Insulin) 46 units (0.46 mL) subcut DAILY 30 days insulin pump cart,auto,BT,G6/7 (Omnipod 5 G6-G7 Pods (Gen 5) subcutaneous cartridge) USE DIRECTED. CHANGE EVERY 72 HOURS. insulin pump cart,automated,BT (Omnipod 5 G6 Pods (Gen 5) subcutaneous cartridge) DIRECTED CHANGE EVERY 72 HRS insulin syr/ndl U100 half ravinder (BD Veo Insulin Syringe Ultra-Fine (half unit)) As directed four times a day insulin syringe-needle U-100 (BD Insulin Syringe Ultra-Fine) As directed five times a day insulin syringe-needle U-100 (BD Insulin Syringe Ultra-Fine) As directed up to 5 times daily Ketone Urine Test (acetone (urine) test) As directed for glucose over 250 or nausea and vomiting. Follow directions on package prn tid NS lancets (FreeStyle Lancets) As directed lisinopril 2.5 mg PO DAILY pen needle, diabetic ONCE DAILY USE DIRECTED NS prazosin 2 mg PO BEDTIME quetiapine ER 150 mg PO DAILY sertraline 100 mg PO DAILY HPI Comments Details: 58 yo female with DM type 1 with complications of retinopathy, history of microalbuminuria coming in today for follow up. History of diabetes diagnosed at age 27 . She was last seen by [facility] 04/12/24 and Angella Kumar APRN 06/07/24. Hgb A1C POC 10/02/24: 7.1% 06/07/24 6.6% 03/09/24: 7.4%, 12/08/23 7.1% 09/07/23 6.9% Dexcom G7 data downloaded from September 19 to October 02 along with the Omnipod 5 data G HI 7.2% Average glucose 161 mg/dL Coefficient of variation 24.2% Within target range 72% High 25% Very high 3% Low 0% Very low 0% Omnipod 5 system In automated mode 100% Carbs per day: 188.5 g Insulin use per day total insulin per day: 67.4 units Basal per day 40.7 units (60% ) Bolus per day 26.7 units (40%) Interpretation: Well-controlled with the no significant lows are postprandial increase Diabetes medications: Novolog via Omnipod Classic pump with Dexcom G7. Backup pump failure plan 40 units of Lantus Humalog t.i.d. with meals in usual doses 6-8 units Basal rate(s) (units/hour) : 12 AM to 7 AM 2.1 units / hr 7 AM? to 6 PM? 1.8 units / hr 6 PM? to 8 PM? 1.9 units / hr 8 PM? to 12 AM? 1.8 units / hr Bolus setting Insulin Carbohydrate Ratio (s) 12 AM? to 12 PM? 1:7.5 12 PM to 5 PM? 1:6.5 5 PM to 12 AM 1:6 Correction Factor / Sensitivity Factor 12 AM? to 12 PM? 1:30 12 PM? to 8 PM? 1:30 8 PM to 12 AM ? 1:32 Active Insulin Time:? 4 hours Target(s): 12 AM? to 12 AM? 110 Correction threshold: 12 AM? to 12 AM? 110 Random Glucose: 198 mg/dl She reports stable retinopathy: Last eye exam April 2023 , has appt 10/10/24 No Neuropathy: Denies numbness, tingling, pain or cramping in the lower extremities Has nephropathy with a history of microalbuminuria, 04/04 eGFR>60 microalbumin 24.7 on low-dose Justin-I Has HLD: On atorvastatin 80 mg daily most recent LDL 144 from March 2024 up from 65 05/07/2023 no chest pain, shortness or breath or symptoms of claudication Diet balanced Exercise: walks constantly at home Sees parent educator Physical exam General: sitting comfortably in no acute distress HEENT: normocephalic/atraumatic, Neck: supple, Cardiac: normal heart sounds Pulm: normal breath sounds B/L, no added breath sounds Abd: not distended, no tenderness Extremities: no edema, no signs of myxedema Foot exam: intact sensation to monofilament, intact pulses, intact vibration Laboratory Tests 05/07/23 03/15/24 06/07/24 08:30 09:18 10:11 Creatinine 0.76 Estimated GFR > 60 Hgb A1c (Clinic) 6.6 H Calcium 8.9 Triglycerides 78 Cholesterol 211 H LDL Cholesterol, Calc 144 H HDL Cholesterol 52 Urine Creatinine 151.49 109.12 Urine Microalbumin 39.0 27.0 Microalb/Creat Ratio 25.7 24.7 [facility] Medical History (Updated 10/02/24 @ 13:11 by Antonia Woodward MD) Insulin pump in place 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 Hypertension Cerebral palsy Depression Insomnia Proteinuria Type 1 diabetes mellitus with other diabetic kidney complication Hyperlipidemia, unspecified Surgical History H/O colonoscopy Hx of section History of appendectomy Family History Father Lung cancer Mother Colon cancer Diabetes HTN (hypertension) CVD (cardiovascular disease) Social History Household Members: Family and Children Household Members Other:: grandchidren Alcohol intake: never Patient Tobacco Use Status: Never used Tobacco Physical Exam Vital Signs: Last Vital Signs Pulse 85 10/02/24 12:29 BP 150/80 H 10/02/24 12:29 Pulse Ox 98 10/02/24 12:29 Oxygen Delivery Method Room Air 10/02/24 12:29 BMI result Body Mass Index 36.0 Office Procedures Glucose Monitoring Details Details: See [facility] [address] - Glucose monitoring, continuous-physician I&R Procedure code (CPT) selection complete Results AMB Hemoglobin A1c AMB Hemoglobin A1c 7.1 % Last Edit by IVETH Sylvester on 10/02/24 12:47 Results Reviewed Results Reviewed: Laboratory Last Values Glucose (Clinic) 198 mg/dL (60-115) H 10/02/24 12:36 Assessment & Plan Assessment & Plan (1) Type 1 diabetes mellitus with other diabetic kidney complication: Code(s): E10.29 - Type 1 diabetes mellitus with other diabetic kidney complication Category: Medical Plan: 58-year-old female with type 1 diabetes mellitus on Omnipod 5 insulin pump with Dexcom G6. With NovoLog. With complications of microalbuminuria, retinopathy. A1c today 10/02/2024 7.1% which is up from 6.6% in May 2024. Pump and CGM data downloaded shows however she is doing well mostly within target. At this time I am not changing any pump settings. Some days I did notice she is not entering carbs consistently which I educated her about today. Plan: -continue current pump settings -on Dexcom G6, still has old phone, when she buys a new phone she will let us know and then can be updated to G7 - due for eye visit, patient has a appointment in October 2024 -foot exam done today 10/02/2024 unremarkable - (2) Insulin pump in place: Code(s): Z96.41 - Presence of insulin pump (external) (internal) Category: Medical Plan: Has backup Lantus and pen needles, to inject 40 units of Lantus in case of pump failure Would need 6-8 units t.i.d. NovoLog with meals Has urine ketone strips (3) Dyslipidemia due to type 1 diabetes mellitus: Code(s): E10.69 - Type 1 diabetes mellitus with other specified complication; E78.5 - Hyperlipidemia, unspecified Category: Medical Plan: LDL elevated to 144 mg/dL from March 2024 while she is taking atorvastatin 80 mg daily. She is already on high-intensity statin, promises adherence to the medication. That case meal had Zetia. Plan: -start Zetia 10 mg daily -continue atorvastatin 80 mg daily -we will plan to repeat lipid panel in spring Plan I spent 30 minutes in reviewing the record, seeing the patient and documenting in the medical record. Orders: Orders AMB Hemoglobin A1c Today E10.29 - Type 1 diabetes mellitus with other diabetic kidney complication, Z13.9 - Encounter for screening, unspecified AMB Glucose Monitoring Today E10.29 - Type 1 diabetes mellitus with other diabetic kidney complication Medications: New ezetimibe (Zetia) 10 mg PO DAILY 30 tabs 5RF Changed From insulin aspart U-100 75 units (0.75 mL) subcut DAILY 30 days 30 mL 5RF E10.29 - Type 1 diabetes mellitus with other diabetic kidney complication To insulin aspart U-100 via insulin pump daily 75 units (0.75 mL) continuous subcutaneous infusion DAILY 30 mL 5RF 30 days E10.29 - Type 1 diabetes mellitus with other diabetic kidney complication From insulin glargine (Lantus Solostar U-100 Insulin) 46 units (0.46 mL) subcut DAILY 30 days 13.8 mL 4RF To insulin glargine (Lantus Solostar U-100 Insulin) to inject 40 units daily in case of pump failure 40 units (0.4 mL) subcut DAILY 12 mL 2RF 30 days Refilled insulin pump cart,auto,BT,G6/7 (Omnipod 5 G6-G7 Pods (Gen 5) subcutaneous cartridge) USE DIRECTED. CHANGE EVERY 72 HOURS. 10 ea 10RF Patient Instructions: no pump settings changed today Start zetia 10 mg daily in addtion to atorvastatin See eye doctor Coding Level of Care Code Est Pt Level 4 (13781) Diagnoses Type 1 diabetes mellitus with other diabetic kidney complication E10.[address] Z96.41 Dyslipidemia due to type 1 diabetes mellitus E10.69; E78.5 CPT Codes Details - CPT: 59118 - Glucose monitoring, continuous-physician I&R ([id number]) Time Spent (min) 30
[2024-10-02 12:41] LABS: Glucose, Whole Blood 198 mg/dL (60-115)
--- OUTSIDE RECORDS SUMMARY | 2024-10-02 13:36 | XMS_ITS | Encounter Summary ---
Author Organization [employer] Address [address] [facility] [address] 7t [place] [address] Care Team Providers Care Ranch Rider Name Role Phone Name, Sam LOPEZ Primary Care Provider [phone] Reason for Visit * Reason Comments Med Refill Encounter Details Date Type Department Care Team ([facility] st Contact Info) Description 11/25/2022 Refill [facility] MED & PEDS [address] [place], [place] [phone] Name, MD Sam [address] [place] [address] Hypertension, unspecified type Social History Tobacco Use [...] Care Team (Late st Contact Info) Description 10/10/2024 9:20 AM EDT Office Visit [facility] [address] [place] [address] documented as of this encounter Visit Diagnoses Diagnosis Hypertension, unspecified type documented in this encounter Additional Health Concerns Assessment Noted Time PHQ-9 Depression Total Score: 0 02/24/19 23 1:36 PM EST documented as of this encounter Care Teams Ranch Rider Relationship Specialty Start Date End Date Name, MD Sam [address] [place] [address] PCP - General Family Medicine 05/15/15 documented as of this encounter
== END 2024-10-02 13:07 | disposition home or self-care (01) ==
LOC: HO.ENCR 12:24
PROVIDERS: PCP Internal Medicine Geriatric Medicine; Visit Provider Student in an Organized Health Care Education/Training Program
DX: E10.29 Type 1 diabetes mellitus with other diabetic kidney complication (principal); Z96.41 Presence of insulin pump (external) (internal); E10.69 Type 1 diabetes mellitus with other specified complication; E78.5 Hyperlipidemia, unspecified; Z13.9 Encounter for screening, unspecified
CPT/HCPCS: 95251; 99214

== ENCOUNTER → 2024-10-02 12:24 | Outpatient (BNVA) | payer MEDICAID, SELFPAY | PROVIDERS: PCP Internal Medicine Geriatric Medicine; Visit Provider Student in an Organized Health Care Education/Training Program | DX: E10.29 Type 1 diabetes mellitus with other diabetic kidney complication (principal); E78.5 Hyperlipidemia, unspecified; Z96.41 Presence of insulin pump (external) (internal) | CPT/HCPCS: 82947; 83036; 99212 ==